=== PATIENT | male | born 1955 | race American Indian/Alaskan Native ===

== ENCOUNTER 2016-06-16 23:38 | Inpatient (IN) | payer OTHER ==
[2016-06-17 00:33] LABS: Bilirubin,Urine NEG (Negative); Blood,Urine SM (Negative); Ketones,Urine NEG (Negative); Leukocyte Esterase,Urine NEG (Negative); Nitrite,Urine NEG (Negative); Protein,Urine <15 mg/dL mg/dL (Negative); RBC,Urine < 1.0 /HPF (0.0-6.0); Urobilinogen,Urine < 2.0 mg/dL (<2.0); WBC,Urine < 1.0 /HPF (0.0-6.0)
[2016-06-17 00:38] LABS: INR 1.04 (0.87-1.13)
[2016-06-17 00:39] LABS: Partial Thromboplastin Time 34.4 Sec. (24.2-36.6)
[2016-06-17 00:56] LABS: Alanine Aminotransferase 12 units/L (7-56); Albumin 3.9 g/dL (3.9-5); Albumin/Globulin Ratio 1.6 %; Alkaline Phosphatase 65 units/L (35-129); Bilirubin,Total 0.5 mg/dL (0.1-1.2); Blood Urea Nitrogen 21 mg/dL (9-20); Calcium 8.8 mg/dL (8.4-10.2); Carbon Dioxide 21 mmol/L (22-30); Glucose 108 mg/dL (75-100); Total Protein 6.3 g/dL (6.3-8.2)
[2016-06-17 01:11] LABS: Anion Gap 17 mmol/L; Chloride 107.7 mmol/L (98-107); Potassium 4.1 mmol/L (3.6-5.0); Sodium 142 mmol/L (137-145)
[2016-06-17] MEDS ORDERED: NITROSTAT SL PRN (02:31)
--- NOTE | 2016-06-17 02:32 | Emergency Department Report ---
ED General Adult HPI - General Chief complaint: Arrhythmia/Palpitations Stated complaint: HEART PALPITATIONS Time Seen by Provider: 06/17/16 02:17 Source: patient, EMS (ems notes not available at time of chart dictation), RN notes reviewed, old records reviewed Mode of arrival: Stretcher Limitations: No Limitations - History of Present Illness Initial comments: This is a 60-year-old male. He is previously unknown to me. Has a past medical history of hypertension, high cholesterol, appendectomy, cardiac stents , coronary artery disease. Patient was recently admitted to [facility] for evaluation of chest pain and tightness. Patient had a myocardial infarction status post PCI stent 2. Follows with cardiology Dr. Sommers. Patient was admitted to [facility] April 28 2 April 30 of this year. Patient had an echocardiogram which demonstrated an ejection fraction of 25-30%, which did decrease from prior ejection fraction of 55-60% on echo year ago. Patient furthermore had a left heart catheterization the right radial artery approach, that demonstrated normal coronary arteries, patent stents to the left anterior descending, severe ischemic cardiomyopathy, with minimal left ventricular end-diastolic pressure. No tachycardia or tachycardia arrhythmias were noted. The patient presents to the ER with chest pressure, and palpitations. The chest pressure radiates to the shoulder. There is no vomiting or diaphoresis. There is no leg pain. There is no leg swelling. No recent trips greater than 4 hours. No recent hospital admissions since since April. Patient reports compliance with his medications. -: Gradual Location: chest Radiation: back Quality: aching Consistency: now resolved Improves with: none Worsens with: none Associated Symptoms: chest pain - Related Data Home Medications Medication Instructions Recorded Confirmed Last Taken Ticagrelor [Brilinta] 90 mg PO BID 02/25/15 02/25/15 06/17/16 Carvedilol [Coreg] 06/17/16 06/17/16 Carvedilol [Coreg] 3.125 mg PO BID 06/17/16 06/17/16 06/17/16 Previous Rx's Medication Instructions Recorded Last Taken Type Aspirin [Aspirin TAB] 81 mg PO QDAY #30 tablet 02/27/15 06/17/16 Rx Famotidine [Pepcid] 20 mg PO BID #60 tablet 02/27/15 06/16/16 Rx Ticagrelor [Brilinta] 90 mg PO BID tablet 02/27/15 06/17/16 Rx Allergies Allergy/AdvReac Type Severity Reaction Status Date / Time No Known Allergies Allergy Unverified 06/04/14 16:06 ED Review of Systems ROS: Stated complaint: HEART PALPITATIONS Other details as noted in HPI Constitutional: denies: malaise Eyes: denies: vision change Respiratory: see HPI Cardiovascular: chest pain, palpitations Gastrointestinal: denies: nausea, vomiting Musculoskeletal: back pain Skin: lesions (she reports a mechanical fall, has right lower extremity ecchymosis.). denies: rash Psychiatric: anxiety ED Past Medical Hx - Past Medical History Hx Hypertension: Yes Hx Heart Attack/AMI: Yes Hx Diabetes: No Hx Asthma: No Additional medical history: gasritis. gout. high cholesterol - Surgical History Hx Coronary Stent: Yes Additional Surgical History: colon resection - Social History Smoking Status: Unknown if ever smoked - Medications Home Medications: Home Medications Medication Instructions Recorded Confirmed Last Taken Type Ticagrelor [Brilinta] 90 mg PO BID 02/25/15 02/25/15 06/17/16 History Aspirin [Aspirin TAB] 81 mg PO QDAY #30 tablet 02/27/15 02/25/15 06/17/16 Rx Famotidine [Pepcid] 20 mg PO BID #60 tablet 02/27/15 06/16/16 Rx Ticagrelor [Brilinta] 90 mg PO BID tablet 02/27/15 06/17/16 Rx Carvedilol [Coreg] 06/17/16 06/17/16 History Carvedilol [Coreg] 3.125 mg PO BID 06/17/16 06/17/16 06/17/16 History ED Physical Exam - General Limitations: No Limitations General appearance: alert, in no apparent distress - Head Head exam: Present: atraumatic, normocephalic - Eye Eye exam: Present: normal appearance, EOMI. Absent: nystagmus - ENT ENT exam: Present: normal exam, normal orophraynx, mucous membranes moist, normal external ear exam - Neck Neck exam: Present: normal inspection, full ROM. Absent: tenderness, meningismus - Respiratory Respiratory exam: Present: normal lung sounds bilaterally. Absent: respiratory distress, wheezes, rales, rhonchi, stridor - Cardiovascular Cardiovascular Exam: Present: regular rate, normal rhythm, normal heart sounds. Absent: bradycardia, tachycardia, irregular rhythm, systolic murmur, diastolic murmur, rubs, gallop - GI/Abdominal GI/Abdominal exam: Present: soft, normal bowel sounds. Absent: distended, tenderness, guarding, rebound, rigid, pulsatile mass - Rectal Rectal exam: Present: deferred - Extremities Exam Extremities exam: Present: full ROM, normal capillary refill, other (his right lower extremity ecchymosis, patient attributes this to a mechanical fall a few days ago.). Absent: pedal edema, joint swelling, calf tenderness - Back Exam Back exam: Present: normal inspection, full ROM. Absent: tenderness, CVA tenderness (R), CVA tenderness (L), muscle spasm, paraspinal tenderness, vertebral tenderness - Neurological Exam Neurological exam: Present: alert, oriented X3, normal gait, other (Extraocular movements intact. Tongue midline. No facial droop. Facial sensation intact to light touch in the V1, V2, V3 distribution bilaterally. 5 and 5 strength in 4 extremities.. Sensation is intact to light touch in 4 extremities.). Absent : motor sensory deficit - Psychiatric Psychiatric exam: Present: normal affect, normal mood - Skin Skin exam: Present: warm, ecchymosis. Absent: rash ED Course Vital Signs 06/16/16 06/16/16 06/16/16 23:46 23:50 23:51 Temperature 97.7 F 97.7 F Pulse Rate 83 86 89 Respiratory 15 17 20 Rate Blood Pressure 130/88 130/88 Blood Pressure 130/88 [Right] O2 Sat by Pulse 97 99 97 Oximetry 06/17/16 06/17/16 06/17/16 00:00 00:10 00:20 Temperature Pulse Rate 91 H 84 77 Respiratory 13 17 15 Rate Blood Pressure 130/88 124/80 115/81 Blood Pressure [Right] O2 Sat by Pulse 97 97 97 Oximetry 06/17/16 06/17/16 06/17/16 00:30 00:40 00:44 Temperature Pulse Rate 74 77 77 Respiratory 14 18 19 Rate Blood Pressure 115/81 123/78 Blood Pressure [Right] O2 Sat by Pulse 98 98 98 Oximetry 06/17/16 06/17/16 06/17/16 00:50 01:00 01:10 Temperature Pulse Rate 82 72 74 Respiratory 14 15 16 Rate Blood Pressure 119/81 111/78 119/81 Blood Pressure [Right] O2 Sat by Pulse 97 98 97 Oximetry 06/17/16 06/17/16 06/17/16 01:20 01:30 01:40 Temperature Pulse Rate 71 71 74 Respiratory 17 14 14 Rate Blood Pressure 120/78 124/73 124/73 Blood Pressure [Right] O2 Sat by Pulse 97 98 97 Oximetry 06/17/16 06/17/16 06/17/16 01:50 02:00 02:10 Temperature Pulse Rate 73 69 68 Respiratory 13 16 16 Rate Blood Pressure 127/81 124/81 124/81 Blood Pressure [Right] O2 Sat by Pulse 98 98 97 Oximetry 06/17/16 06/17/16 06/17/16 02:20 02:30 02:40 Temperature Pulse Rate 79 66 69 Respiratory 19 15 13 Rate Blood Pressure 123/80 116/60 116/60 Blood Pressure [Right] O2 Sat by Pulse 98 98 98 Oximetry 06/17/16 06/17/16 06/17/16 02:50 03:00 03:14 Temperature Pulse Rate 68 70 67 Respiratory 13 15 18 Rate Blood Pressure 112/65 111/74 Blood Pressure [Right] O2 Sat by Pulse 99 98 98 Oximetry 06/17/16 06/17/16 06/17/16 03:20 03:30 03:40 Temperature Pulse Rate 71 71 76 Respiratory 15 13 13 Rate Blood Pressure Blood Pressure [Right] O2 Sat by Pulse 97 98 98 Oximetry 06/17/16 06/17/16 06/17/16 03:50 04:00 04:10 Temperature Pulse Rate 67 71 68 Respiratory 13 12 11 L Rate Blood Pressure 113/70 Blood Pressure [Right] O2 Sat by Pulse 99 99 98 Oximetry 06/17/16 06/17/16 04:20 04:50 Temperature Pulse Rate 68 68 Respiratory 16 16 Rate Blood Pressure 117/72 126/79 Blood Pressure [Right] O2 Sat by Pulse 98 98 Oximetry - Reevaluation(s) Reevaluation #1: 06/17/16 05:16 Differential diagnosis: Unstable angina, electrolyte imbalance, pneumonia, pulmonary embolus, acute coronary syndrome, anxiety Assessment and plan: 60-year-old male with ischemic cardiomyopathy, stents, chest pain that radiates to the back. EKG morphologically abnormal. Case is discussed with covering greenhouse grower, Dr. Mahajan. He recommends admission. He indicates that the formal cardiac catheterization report needs to be obtained for further review. We were able to obtain some of the patient's medical records, but thus far the cardiac catheterization report has not returned. CT angiogram has been performed given elevated d-dimer, awaiting results. Hospital physician, Dr. Charlton accepts patient to her service. ED Medical Decision Making - Lab Data Result diagrams: 06/17/16 02:50 06/17/16 00:15 Vital Signs 06/16/16 06/16/16 06/16/16 23:46 23:50 23:51 Temperature 97.7 F 97.7 F Pulse Rate 83 86 89 Respiratory 15 17 20 Rate Blood Pressure 130/88 130/88 Blood Pressure 130/88 [Right] O2 Sat by Pulse 97 99 97 Oximetry 06/17/16 06/17/16 06/17/16 00:00 00:10 00:20 Temperature Pulse Rate 91 H 84 77 Respiratory 13 17 15 Rate Blood Pressure 130/88 124/80 115/81 Blood Pressure [Right] O2 Sat by Pulse 97 97 97 Oximetry 06/17/16 06/17/16 06/17/16 00:30 00:40 00:44 Temperature Pulse Rate 74 77 77 Respiratory 14 18 19 Rate Blood Pressure 115/81 123/78 Blood Pressure [Right] O2 Sat by Pulse 98 98 98 Oximetry 06/17/16 06/17/16 06/17/16 00:50 01:00 01:10 Temperature Pulse Rate 82 72 74 Respiratory 14 15 16 Rate Blood Pressure 119/81 111/78 119/81 Blood Pressure [Right] O2 Sat by Pulse 97 98 97 Oximetry 06/17/16 06/17/16 06/17/16 01:20 01:30 01:40 Temperature Pulse Rate 71 71 74 Respiratory 17 14 14 Rate Blood Pressure 120/78 124/73 124/73 Blood Pressure [Right] O2 Sat by Pulse 97 98 97 Oximetry 06/17/16 06/17/16 06/17/16 01:50 02:00 02:10 Temperature Pulse Rate 73 69 68 Respiratory 13 16 16 Rate Blood Pressure 127/81 124/81 124/81 Blood Pressure [Right] O2 Sat by Pulse 98 98 97 Oximetry 06/17/16 06/17/16 06/17/16 02:20 02:30 02:40 Temperature Pulse Rate 79 66 69 Respiratory 19 15 13 Rate Blood Pressure 123/80 116/60 116/60 Blood Pressure [Right] O2 Sat by Pulse 98 98 98 Oximetry 06/17/16 06/17/16 06/17/16 02:50 03:00 03:14 Temperature Pulse Rate 68 70 67 Respiratory 13 15 18 Rate Blood Pressure 112/65 111/74 Blood Pressure [Right] O2 Sat by Pulse 99 98 98 Oximetry 06/17/16 06/17/16 06/17/16 03:20 03:30 03:40 Temperature Pulse Rate 71 71 76 Respiratory 15 13 13 Rate Blood Pressure Blood Pressure [Right] O2 Sat by Pulse 97 98 98 Oximetry 06/17/16 06/17/16 06/17/16 03:50 04:00 04:10 Temperature Pulse Rate 67 71 68 Respiratory 13 12 11 L Rate Blood Pressure 113/70 Blood Pressure [Right] O2 Sat by Pulse 99 99 98 Oximetry 06/17/16 06/17/16 04:20 04:50 Temperature Pulse Rate 68 68 Respiratory 16 16 Rate Blood Pressure 117/72 126/79 Blood Pressure [Right] O2 Sat by Pulse 98 98 Oximetry - EKG Data 06/17/16 05:18 Normal sinus, 87 beats per minute, QTC 452 ms, T-wave inversions V5 and V6, nonspecific changes when compared to old EKG, there is pseudonormalization of biphasic T waves in V2 and V3, abnormal EKG, not morphologically consistent with STEMI. - Radiology Data Radiology results: image reviewed interpreted by me: X-ray of the chest is negative Critical care attestation.: If time is entered above; I have spent that time in minutes in the direct care of this critically ill patient, excluding procedure time. ED Disposition Clinical Impression: Acute electrocardiogram changes, Chest pain Disposition: OP ADMITTED IP TO THIS HOSP Is pt being admited?: Yes Does the pt Need Aspirin: Yes Condition: Good Instructions: Chest Pain (ED) Referrals: PRIMARY CARE, [Primary Care Provider] - 3-5 Days
[2016-06-17 03:01] LABS: Hematocrit 41.5 % (35.5-45.6); Hemoglobin 13.9 gm/dl (11.8-15.2); Mean Corpuscular HGB Conc 33 % (32-34); Mean Corpuscular Hemoglobin 28 pg (28-32); Mean Corpuscular Volume 85 fl (84-94); Platelet Count 215 K/mm3 (140-440); Red Cell Distribution Width 13.8 % (13.2-15.2); White Blood Count 8.8 K/mm3 (4.5-11.0)
[2016-06-17] MEDS ORDERED: NACL 0.9% 500 ML 500 ML IV ONE (03:25)
[2016-06-17] MEDS ORDERED: NACL 0.9% 1000 ML 1,000 ML ONE (04:06)
[2016-06-17] MEDS ORDERED: BABY ASPIRIN PO ONE (05:18)
[2016-06-17] MEDS ORDERED: ZOFRAN IV PRN (05:49)
[2016-06-17] MEDS ORDERED: MORPHINE IV PRN (05:49)
[2016-06-17] MEDS ORDERED: TYLENOL PO PRN (05:49)
[2016-06-17] MEDS ORDERED: DULCOLAX PR PRN (05:49)
[2016-06-17] MEDS ORDERED: MILK OF MAGNESIA PO PRN (05:49)
--- NOTE | 2016-06-17 05:55 | History and Physical Report ---
History of Present Illness Date of examination: 06/17/16 History of present illness: 80-year-old man with a history of coronary artery disease, hypertension hyperlipidemia comes emergency room with complaints of palpitations which lasted for 10 minutes and was associated with chest pain. The chest pain he describes a pressure-like sensation lasting for one and a half hours constantly , intensity 7/10, radiating to bilateral shoulders, he cannot identify exacerbating or relieving factors. He admits to shortness of breath, no nausea vomiting or diaphoresis. He had a stress test in 2016 Patient denies cough, abdominal pain, hematochezia, dysuria, frequency, focal weakness, dysarthria, fever chills, polydipsia polyuria, hot or cold intolerance , easy bruisability, or rash or bleeding from mucosal membrane, rhinorrhea, epistaxis, earache, tinnitus, blurry vision, eye discharge, anxiety, depression. Other review of systems negative PAST SURGICAL HISTORY: Hysterectomy SOCIAL HISTORY:Denies alcohol, tobacco, drugs FAMILY HISTORY: Hypertension Medications and Allergies Allergies Allergy/AdvReac Type Severity Reaction Status Date / Time No Known Allergies Allergy Unverified 06/04/14 16:06 Home Medications Medication Instructions Recorded Confirmed Last Taken Type Ticagrelor [Brilinta] 90 mg PO BID 02/25/15 02/25/15 06/17/16 History Aspirin [Aspirin TAB] 81 mg PO QDAY #30 tablet 02/27/15 02/25/15 06/17/16 Rx Famotidine [Pepcid] 20 mg PO BID #60 tablet 02/27/15 06/16/16 Rx Ticagrelor [Brilinta] 90 mg PO BID tablet 02/27/15 06/17/16 Rx Carvedilol [Coreg] 06/17/16 06/17/16 History Carvedilol [Coreg] 3.125 mg PO BID 06/17/16 06/17/16 06/17/16 History Active Meds: Active Medications Nitroglycerin (Nitrostat) 0.4 mg SL .Q5MIN PRN PRN Reason: Chest Pain Exam - Physical Exam Narrative exam: Gen. appearance: Patient lying in bed, no apparent distress HEENT: Normocephalic, atraumatic, pupils equally round and reactive to light, extraocular movement intact, and no sclericterus,. No JVD or thyromegaly or nodule,neck supple, no carotid bruit ,mucous membranes moist, no exudate or erythema Heart: S1, S2, regular rate and rhythm Lungs: Clear to auscultation bilaterally, breathing comfortable Abdomen: Positive bowel sounds, nontender, nondistended, no organomegaly Extremity: No edema, cyanosis, clubbing Skin: No rash, nodules, warm, dry Neuro: Oriented 3, cranial nerves II-12 intact, speech is fluent, motor and sensory intact - Constitutional Vitals: Temp Pulse Resp BP Pulse Ox 97.7 F 68 16 126/79 98 06/16/16 23:51 06/17/16 04:50 06/17/16 04:50 06/17/16 04:50 06/17/16 04:50 Results - Labs CBC & Chem 7: 06/17/16 02:50 06/17/16 00:15 Labs: Abnormal lab results 06/17/16 06/17/16 06/17/16 Range/Units 00:15 00:23 02:50 D-Dimer 275.65 H (0-234) ng/mlDDU Chloride 107.7 H (98-107) mmol/L Carbon Dioxide 21 L (22-30) mmol/L BUN 21 H (9-20) mg/dL Glucose 108 H (75-100) mg/dL TSH 5.020 H (0.270-4.200) mlU/mL - Imaging and Cardiology EKG: image reviewed Chest x-ray: image reviewed CT scan - chest: pending Assessment and Plan Unstable angina Coronary artery disease Hypertension Hyperlipidemia Admits medicine Check cardiac enzymes, consult cardiology Follow CT chest, start aspirin, IV morphine, DVT prophylaxis Continue appropriate outpatient medications
--- NOTE | 2016-06-17 06:04 | Cat Scan Report ---
FINAL REPORT PROCEDURE: CT ANGIO CHEST TECHNIQUE: Computerized axial tomographic angiography of the chest and pulmonary arteries was performed after the IV injection of iodinated nonionic contrast. The image data was postprocessed using maximum intensity projection (MIP) and 2-dimensional multiplanar reformatted (MPR) techniques. The examination is specifically tailored to the evaluation of the pulmonary arteries per clinical request. HISTORY: Short of breath 786.09, chest pain 786.50, cp ? pe COMPARISON: No prior studies are available for comparison. FINDINGS: Heart and pericardium: Normal. Thoracic aorta: There is ectasia of the ascending thoracic aorta measuring up to 4.8 centimeters in diameter. There is no dissection. Aortic arch and descending thoracic aorta are normal in caliber.. Pulmonary vasculature: Normal. No pulmonary emboli. Lymph nodes: No enlarged thoracic lymph nodes. Lungs: There are no infiltrates.. Pleural space: No effusion, thickening, or pneumothorax. Musculoskeletal structures: No significant abnormality. Upper abdominal structures: No significant abnormality. IMPRESSION: There is no pulmonary embolism.. There is ectasia of the ascending thoracic aorta measuring up to 4.8 centimeters in diameter. There is no dissection. Aortic arch and descending thoracic aorta are normal in caliber.. There are no infiltrates.. There are no effusions or pneumothoraces.
--- NOTE | 2016-06-17 07:30 | Admit Criteria Form ---
Admission Criteria Documentation: CARDIOLOGY GRG Clinical Indications for Admission to Inpatient Care ( Place 'X' for any and all applicable criteria): Hospital admission is needed for appropriate care of the patient because of ANY ONE of the following (1): [ ] I. Hemodynamic instability as indicated by ALL of the following (1)(2)(3) (4)(5) [ ]a) Vital signs or other findings not as expected for chronic patient condition or baseline [ ]b) Instability indicated by ANY ONE of the following: [ ]i) Hypotension [ ]ii) Symptomatic Tachycardia unresponsive to treatment ( e.g., analgesia, fluids, sedation as indicated) [ ]iii) Inadequate perfusion indicated by ANY ONE of the following: [ ] 1) Lactic acidosis (> 2 mmol/L) [ ] 2) New abnormal capillary refill (> 3 seconds) [ ] 3) Reduced urine output [ ] 4) New altered mental status [ ]iv) Orthostatic vital sign changes unresponsive to treatment (e.g., fluids) [ ]v) IV inotropic or vasopressor medication required to maintain adequate blood pressure or perfusion [ ] II. Severe heart failure as indicated by ANY ONE of the following(17)(18) [ ]a) Respiratory distress [ ]b) Hypotension [ ]c) Anasarca (refractory to outpatient therapy) [ ]d) Cardiac arrhythmias of immediate concern [ ]e) Myocardial ischemia [ ] III. Cardiac arrhythmias or findings of immediate concern indicated by ANY ONE of the following (19)(20): [ ] a) Heart rhythms that are inherently dangerous or unstable indicated by ANY ONE of the following (21)(22)(23): [ ] i) Resuscitated ventricular fibrillation or cardiac arrest [ ] ii) Ventricular escape rhythm [ ] iii) Sustained ventricular tachycardia (30 seconds or more of ventricular rhythm at greater than 100 beats per minute) [ ] iv) Nonsustained ventricular tachycardia and ANY ONE of the following: [ ] 1) Suspected cardiac ischemia as cause or consequence of ventricular tachycardia [ ] 2) In setting of acute myocarditis [ ] b) Unstable cardiac conduction defects indicated by ANY ONE of the following(23)(24)(25) [ ] i) Type II second-degree atrioventricular block [ ]ii) Third-degree atrioventricular block [ ]iii) New-onset left bundle branch block with suspected myocardial ischemia [ ]c) Any heart rhythm and ANY ONE of the following (21)(22)(26)(27) (28) [ ] i) Continuous long-term ECG monitoring needed (e.g., initiation of drug requiring monitoring for more than 24 hours) [ ] ii) Patient has automatic implanted cardioverter defibrillator that is repeatedly firing, malfunctioning, or in need of immediate adjustment of settings beyond the scope of ambulatory or observation care [ ]d) Heart rhythms of concern due to ANY ONE of the following: [ ] i) Hypotension [ ] ii) Respiratory distress [ ] iii) Association with other significant symptoms (e.g., bradycardia with syncope or ongoing dizziness, supraventricular tachycardia with chest pain (14)(15)(17) [ ] IV. Monitoring for cardiac contusion beyond the scope of observation care needed [A](30)(31)(32) [ ] V. Surgical or device complication (e.g., valve replacement complication , pacemaker dysfunction) (35)(41)(44)(45)(46) [ ] . Inpatient palliative care needed. [B](49) Also use Inpatient Palliative Care Criteria [ ] VII. Nonbacterial thrombotic (marantic) endocarditis (36)(43)(47)(48) [X ] VIII. Cardiology condition, symptom, or finding for which emergency and observation care has failed or are not considered appropriate. [ ] IX. Acute valvular disease requiring inpatient as indicated by ANY ONE of the following (41) [ ]a) Acute valvular regurgitation (42) [ ]b) Noninfectious valvulitis (43) [ ]c) Obstructive valve thrombosis [ ]d) Paravalvular leak [ ]e) Other significant valvular disorder remaining after emergency or observation level of care (as appropriate) [ ]X. Pericardial disease requiring inpatient treatment as indicated by ANY ONE of the following (33)(34)(35)(36)(37) [ ]a) Suspected tamponade (38)(39)(40) [ ]b) Hemopericardium [ ]c) Other significant pericardial disorder remaining after emergency or observation level of care (as appropriate) [ ] XI. Cardiac ischemia beyond scope of emergency and observation care. [ ] XII. Hypertension requiring inpatient treatment as indicated by ANY ONE of the following (6)(7)(8) [ ]a) SBP greater than 220 mm Hg or DBP greater than 120 mmHg despite treatment [ ]b) SBP greater than 140 mm Hg or DBP greater than 100 mm Hg with evidence of acute end organ damage as indicated by ANY ONE of the following [ ] i) Altered mental status [ ] ii) Acute renal failure as indicated by new onset of ANY ONE of the following (9)(10)(11)(12)(13) [ ]1) 3-fold rise in serum creatinine from baseline [ ]2) Serum creatinine greater than 4 mg/dL ( 354 micromoles/L) with acute rise greater than 0.5 mg/dL (44.2 micromoles/L) [ ]3) Reduction of more than 75% in estimated glomerular filtration rate from baseline [ ]4) Estimated glomerular filtration rate less than 35 mL/min/1.73m2 (0.59 mL/sec/1.73m2) in child up to 18 years of age [ ]5) Cessation of urine output indicated by ALL of the following [ ]A. Adequate volume status [ ]B. Inadequate urine output as indicated by ANY ONE of the following [ ]a. Urine output less than 0.3 mL/kg/hr for 24 hours [ ]b. Anuria (urine output less than 0.1 mL/kg/hr) for 12 hours [ ] iii) Aortic dissection [ ] iv) Myocardial Ischemia [ ] v) Left ventricular heart failure [ ]vi) Retinal Hemorrhage [ ]vii) Other significant finding [ ]c) Hypertension in child requiring inpatient treatment as indicated by ALL of the following(14)(15)(16) [ ] i) Outpatient treatment not effective, not available, or not appropriate [ ]ii) SBP or DBP greater than 95th percentile for age [ ]iii) Evidence of acute end organ damage as indicated by ANY ONE of the following [ ]1) Altered mental status [ ]2) Acute renal failure as indicated by new onset of ANY ONE of the following(9)(10)(11)(12)(13) [ ]A. 3-fold rise in serum creatinine from baseline [ ]B. Serum creatinine greater than 4 mg/dL (354 micromoles/L) with acute rise greater than 0.5 mg/dL (44.2 micromoles/L) [ ]C. Reduction of more than 75% in estimated glomerular filtration rate from baseline [ ]D. Estimated glomerular filtration rate less than 35 mL/min/1.73m2 (0.59 mL/sec/1.73m2) in child up to 18 years of age [ ]E. Cessation of urine output indicated by ALL of the following [ ]a. Adequate volume status [ ]b. Inadequate urine output as indicated by ANY ONE of the following [ ]i) Urine output less than 0.3 mL/kg/hr for 24 hours [ ]ii) Anuria ( urine output less than 0.1 mL/kg/hr) for 12 hours [ ]3) Severe headache [ ]4) Visual disturbance [ ]5) Retinal hemorrhage [ ]6) Other significant finding [ ]XIII. Complications of transplanted heart indicated by ANY ONE of the following(61): [ ]a) Acute graft rejection requiring inpatient management (eg, intravenous immunosuppression)(62)(63) [ ]b) Acute graft heart failure indicated by ANY ONE of the following(64): [ ]i) Hemodynamic instability [ ]ii) Cardiac arrhythmias of immediate concern [ ]iii) Pulmonary edema that is very severe (eg, mechanical ventilation needed, imminent or likely, need for 100% oxygen to keep oxygen saturation above 90%) [ ]iv) Pulmonary edema that is persistent as indicated by ALL of the following: [ ]1) New need for oxygen therapy to keep oxygen saturation above 90% (or increased FiO2 need from baseline) [ ]2) Has not improved sufficiently with emergency department or observation care IV diuretics or other heart failure treatments[E] [ ]v) Altered mental status that is severe or persistent [ ]vi) Increased creatinine (new on laboratory test) with reduction of more than 50% in estimated glomerular filtration rate from baseline [ ]vii) Progressively (ongoing) rising creatinine (known from past laboratory test) with reduction of more than 25% in estimated glomerular filtration rate from baseline [ ]viii) Acute renal failure [ ]ix) Acute peripheral ischemia (eg, examination shows pulseless, cool, mottled, or cyanotic extremity) [ ]x) Pulmonary artery catheter monitoring needed [ ]xi) Other sign or symptom of heart failure requiring inpatient treatment (ie, too severe or not responsive to outpatient and observation care treatment) [ ]c) Infection requiring inpatient management (eg, Hemodynamic instability, need for intravenous antimicrobial treatment)(66)(67)(68)(69)(70) [ ]d) Cardiac allograft vasculopathy requiring inpatient management ( eg evidence of cardiac ischemia)(71) [ ]e) Other complication of transplanted heart (eg, stroke, severe pulmonary hypertension, severe valvular dysfunction) requiring inpatient management(72) The original [facility] [employer] content created by [facility] has been revised. The portions of the content which have been revised are identified through the use of italic text or in bold, and [facility] has neither reviewed nor approved the modified material. All other unmodified content is copyright [facility]. Please see references footnoted in the original [facility] edition 2016 Admission Criteria Met: Yes
[2016-06-17 09:01] LABS: Creatine Kinase MB 1.4 ng/mL (0.0-4.0)
[2016-06-17 09:03] LABS: Creatine Kinase 137 units/L (55-170)
--- NOTE | 2016-06-17 09:19 | XRay Report ---
AP CHEST: AP view of the chest demonstrates a normal mediastinal and cardiac contour with clear lungs and normal bony and soft tissue structures. No significant change compared to prior study of February 25, 2015. IMPRESSION: Normal AP chest.
[2016-06-17] MEDS ORDERED: LOVENOX SUB-Q SCH (10:00)
[2016-06-17] MEDS ORDERED: ASPIRIN ONE (10:22)
--- NOTE | 2016-06-17 12:15 | Consultation ---
History of Present Illness Consult date: 06/17/16 Consult reason: other (Palpitations) History of present illness: Mr Delaney is a 60yr old male with a cardiac history of prior [place], Coronary Artery disease, Ischemic cardiomyopathy and paroxysmal Atrial fibrillation treated with aspirin therapy alone. He had a cardiac cath at [facility] 2 months ago that reports a patent proximal LAD stent. No residual disease in other coronary segments. Ejection fraction 25-30%. He reports compliance with brilinta and aspirin therapy. He presents to the ED with complaints of palpitations and shortness of breath. He denies chest pain. There was no pre-syncope or syncope. His ECG shows a sinus rhythm with nonspecific twave abnormalities. No acute cardiopulmonary process on chest x-ray. Chest CTA reports a dilated ascending thoracic aorta measuring 4.8cm. No dissection. No evidence of pulmonary embolism. It is unclear if this is a new finding. Initial labs shows a TSH of 5.0, magnesium of 2.0 and potassium of 4.1. Cardiac consultation requested. Medications and Allergies Allergies Allergy/AdvReac Type Severity Reaction Status Date / Time No Known Allergies Allergy Unverified 06/04/14 16:06 Home Medications Medication Instructions Recorded Confirmed Last Taken Type Ticagrelor [Brilinta] 90 mg PO BID 02/25/15 06/17/16 06/17/16 History Aspirin [Aspirin TAB] 81 mg PO QDAY #30 tablet 02/27/15 06/17/16 02/25/15 Rx Famotidine [Pepcid] 20 mg PO BID #60 tablet 02/27/15 06/17/16 Unknown Rx Carvedilol [Coreg] 3.125 mg PO BID 06/17/16 06/17/16 Unknown History Sacubitril/Valsartan [Entresto 24 1 tab PO DAILY 06/17/16 06/17/16 Unknown History mg-26 mg Tablet] Active Meds: Active Medications Acetaminophen (Tylenol) 650 mg PO Q4H PRN PRN Reason: Pain MILD(1-3)/Fever >100.5/ARCHULETA Aspirin (Aspirin) 325 [facility] Bisacodyl (Dulcolax) 10 mg NM QDAY PRN PRN Reason: Constipation unrelieved by MOM Enoxaparin Sodium (Lovenox) 40 mg SUB-Q QDAY [facility] Last Admin: 06/17/16 10:40 Dose: 40 mg Magnesium Hydroxide (Milk Of Magnesia) 30 ml PO Q4H PRN PRN Reason: Constipation Morphine Sulfate (Morphine) 2 mg IV Q4H PRN PRN Reason: Pain, Moderate (4-6) Nitroglycerin (Nitrostat) 0.4 mg SL .Q5MIN PRN PRN Reason: Chest Pain Ondansetron HCl (Zofran) 4 mg IV Q8H PRN PRN Reason: N/V unrelieved by Reglan Physical Examination Vital Signs Pulse Resp Pulse Ox 83 15 97 06/16/16 23:46 06/16/16 23:46 06/16/16 23:46 General appearance: no acute distress HEENT: Positive: PERRL Neck: Positive: trachea midline Cardiac: Positive: Reg Rate and Rhythm Neuro: Positive: Grossly Intact Extremities: Absent: edema Results 06/17/16 02:50 06/17/16 00:15 Cardiac Enzymes 06/17/16 Range/Units 08:19 CK-MB (CK-2) 1.4 (0.0-4.0) ng/mL Assessment and Plan Paroxysmal atrial fibrillation currently in sinus rhythm on aspirin therapy Hx of CAD [facility] 04/2016 reports a patent proximal LAD stent. No residual disease in other coronary segments. EF 25-30%. on brilinta and aspirin Ischemic Cardiomyopathy Hypertension Dilated ascending thoracic aorta measuring 4.8cm on CTA
--- NOTE | 2016-06-17 13:44 | Event Note ---
Date: 06/17/16 Patient with rapid afib. He was seen and examined. Continue current management. For lifevest prior to discharge, as per cardiology.
[2016-06-17] MEDS ORDERED: SACUBITRIL PO SCH (13:45)
[2016-06-17] MEDS ORDERED: VALSARTAN PO SCH (13:45)
[2016-06-17] MEDS ORDERED: BRILINTA PO SCH (14:00)
[2016-06-17] MEDS: COREG PO SCH ×2 (14:18→22:02)
--- NOTE | 2016-06-17 14:57 | Event Note ---
Date: 06/17/16 Noted atrial fibrillation with RVR on telemetry. BP borderline low 97/79. Patient asymptomatic. Plan: Will initiate eliquis 5mg bid for stroke prophylaxis. Oral amiodarone 200mg bid. Stop entresto. Will replace with valsartan 40mg daily. Will change Brilinta to Plavix therapy to lower risk of bleeding. Discontinue aspirin. Start high dose statin therapy for underlying CAD.
[2016-06-17] MEDS: CORDARONE PO SCH ×2 (15:20→22:02)
[2016-06-17 17:57] LABS: Creatine Kinase MB 1.5 ng/mL (0.0-4.0)
[2016-06-17 17:59] LABS: Creatine Kinase 121 units/L (55-170)
[2016-06-17] MEDS: ELIQUIS PO SCH (22:02)
[2016-06-17] MEDS: PEPCID PO SCH (22:02)
[2016-06-18] MEDS: PLAVIX PO SCH (09:21)
[2016-06-18] MEDS: DIOVAN PO SCH (09:21)
[2016-06-18] MEDS: COREG PO SCH ×2 (09:21→21:35)
[2016-06-18] MEDS: CORDARONE PO SCH ×2 (09:21→21:36)
[2016-06-18] MEDS: ELIQUIS PO SCH ×2 (09:22→21:36)
[2016-06-18] MEDS: PEPCID PO SCH ×2 (09:22→21:36)
[2016-06-18] MEDS ORDERED: ASPIRIN PO SCH ×2 (10:00)
[2016-06-18] MEDS ORDERED: HALFPRIN EC PO SCH (10:00)
--- NOTE | 2016-06-18 12:57 | Progress Note ---
Assessment and Plan - Patient Problems (1) Syncope Current Visit: Yes Status: Acute Qualifiers: Syncope type: S Encounter type: E Plan to address problem: Awaiting LifeVest prior to discharge, outpatient follow-up with his primary income tax consultant, following which he will be transitioned to a probable ICD therapy in the outpatients. (2) Ischemic cardiomyopathy Current Visit: Yes Status: Acute Plan to address problem: Medical therapy for coronary artery disease and ischemic cardiomyopathy. Left anterior descending artery stent was patent on a cardiac catheterization one month ago. (3) Ascending aortic aneurysm Current Visit: Yes Status: Acute Plan to address problem: The 4.8 cm ascending aorta appears to be a new finding, I have had extensive discussion with patient and regarding this, and the need for serial CT scan follow-up in the outpatient's. Subjective Date of service: 06/18/16 Interval history: 60-year-old man with coronary artery disease and ischemic cardiomyopathy, who presented with syncope. He is awaiting LifeVest prior to discharge. Cardiac catheterization just 1 month ago demonstrated a patent LAD stent. His left ventricular ejection fraction is 25-30%. His outpatient income tax consultant had already started plans for ICD therapy in the next several months. An incidental finding of enlarged ascending thoracic aorta 4.[address] of the chest during this presentation. The patient is unaware of any prior history of thoracic aortic aneurysm. Objective Vital Signs Temp Pulse Pulse Resp BP BP BP 06/18/16 12:29 06/18/16 09:21 68 142/90 06/18/16 08:03 97.8 F 68 16 140/90 06/18/16 07:07 06/18/16 04:00 97.7 F 62 18 145/85 06/18/16 00:00 98.8 F 66 18 128/81 06/17/16 23:08 06/17/16 20:00 98.1 F 69 18 117/70 06/17/16 19:05 69 06/17/16 18:42 97.8 F 75 18 136/84 06/17/16 14:20 71 16 111/88 06/17/16 14:00 137 H 15 97/79 06/17/16 13:00 139 H 16 107/68 Pulse Ox 06/18/16 12:29 99 06/18/16 09:21 06/18/16 08:03 99 06/18/16 07:07 97 06/18/16 04:00 97 06/18/16 00:00 98 06/17/16 23:08 98 06/17/16 20:00 97 06/17/16 19:05 06/17/16 18:42 95 06/17/16 14:20 96 06/17/16 14:00 97 06/17/16 13:00 97 - Physical Examination General: Appears Well, No Apparent Distress HEENT: Positive: PERRL Neck: Positive: trachea midline Cardiac: Positive: Reg Rate and Rhythm Lungs: Positive: clear to auscultation Neuro: Positive: Grossly Intact Abdomen: Positive: Soft Skin: Positive: Clear Extremities: Absent: edema - Labs and Meds Cardiac Enzymes 06/17/16 Range/Units 16:34 CK-MB (CK-2) 1.5 (0.0-4.0) ng/mL - Imaging and Cardiology EKG: image reviewed
--- NOTE | 2016-06-18 16:25 | Discharge Summary ---
Providers - Providers Date of Admission: 06/17/16 05:49 Date of discharge: 06/18/16 Attending physician: TANIKA PATRICK Primary care physician: BROOKE PUCKETT MD Hospitalization Condition: Good Disposition: DISCHARGED TO HOME OR SELFCARE - Discharge Diagnoses (1) Atrial fibrillation with RVR Status: Chronic (2) Ascending aortic aneurysm Status: Acute (3) Ischemic cardiomyopathy Status: Acute (4) HTN (hypertension) Status: Acute Qualifiers: Hypertension type: H Core Measure Documentation - Palliative Care Palliative Care/ Comfort Measures: Not Applicable Exam - Constitutional Vitals: Temp Pulse Resp BP Pulse Ox 97.8 F 68 16 142/90 99 06/18/16 08:03 06/18/16 09:21 06/18/16 08:03 06/18/16 09:21 06/18/16 12:29 Plan Diet: low fat, low cholesterol, low salt Additional Instructions: 1.Follow up with PCP in 1 week. 2.Follow up with Cardiology in 3-5 days. 3.No strenous activity until cleared by Cardiology. 4.Ascending aortic artery aneurysm to be followed by PCP in 1 week. Follow up with: PRIMARY CARE, [Primary Care Provider] - 3-5 Days Prescriptions: Amiodarone [Cordarone 200 MG TAB] 200 mg PO BID #60 tablet Apixaban [Eliquis] 5 mg PO Q12HR #60 tablet AtorvaSTATin [Lipitor] 40 mg PO QHS #30 tablet Clopidogrel [Plavix] 75 mg PO QDAY #30 tablet Nitroglycerin [Nitrostat] 0.4 mg SL .Q5MIN PRN #30 tablet PRN Reason: Chest Pain Valsartan [Diovan] 40 mg PO QDAY #30 tablet
--- NOTE | 2016-06-18 19:00 | Progress Note ---
Assessment and Plan - Patient Problems (1) Atrial fibrillation with RVR Current Visit: No Status: Chronic (2) Ascending aortic aneurysm Current Visit: Yes Status: Acute (3) Ischemic cardiomyopathy Current Visit: Yes Status: Acute (4) HTN (hypertension) Current Visit: No Status: Acute Qualifiers: Hypertension type: H Hospitalist Physical - Constitutional Vitals: Temp Pulse Resp BP Pulse Ox 97.2 F L 69 16 121/74 99 06/18/16 18:33 06/18/16 18:33 06/18/16 18:33 06/18/16 18:33 06/18/16 18:33 General appearance: Present: no acute distress Results - Labs CBC & Chem 7: 06/17/16 02:50 06/17/16 00:15 Labs: Laboratory Last Values WBC 8.8 K/mm3 (4.5-11.0) 06/17/16 02:50 RBC 4.90 M/mm3 (3.65-5.03) 06/17/16 02:50 Hgb 13.9 gm/dl (11.8-15.2) 06/17/16 02:50 Hct 41.5 % (35.5-45.6) 06/17/16 02:50 MCV 85 fl (84-94) 06/17/16 02:50 MCH 28 pg (28-32) 06/17/16 02:50 MCHC 33 % (32-34) 06/17/16 02:50 RDW 13.8 % (13.2-15.2) 06/17/16 02:50 Plt Count 215 K/mm3 (140-440) 06/17/16 02:50 PT 13.5 Sec. (12.2-14.9) 06/17/16 00:15 INR 1.04 (0.87-1.13) 06/17/16 00:15 APTT 34.4 Sec. (24.2-36.6) 06/17/16 00:15 D-Dimer 275.65 ng/mlDDU (0-234) H 06/17/16 02:50 Sodium 142 mmol/L (137-145) 06/17/16 00:15 Potassium 4.1 mmol/L (3.6-5.0) 06/17/16 00:15 Chloride 107.7 mmol/L (98-107) H 06/17/16 00:15 Carbon Dioxide 21 mmol/L (22-30) L 06/17/16 00:15 Anion Gap 17 mmol/L 06/17/16 00:15 BUN 21 mg/dL (9-20) H 06/17/16 00:15 Creatinine 1.4 mg/dL (0.8-1.5) 06/17/16 00:15 Estimated GFR > 60 ml/min 06/17/16 00:15 BUN/Creatinine Ratio 15.00 % 06/17/16 00:15 Glucose 108 mg/dL (75-100) H 06/17/16 00:15 Calcium 8.8 mg/dL (8.4-10.2) 06/17/16 00:15 Magnesium 2.0 mg/dL (1.7-2.3) 06/17/16 00:23 Total Bilirubin 0.5 mg/dL (0.1-1.2) 06/17/16 00:15 AST 15 units/L (5-40) 06/17/16 00:15 ALT 12 units/L (7-56) 06/17/16 00:15 Alkaline Phosphatase 65 units/L (35-129) 06/17/16 00:15 Total Creatine Kinase 121 units/L (55-170) 06/17/16 16:34 CK-MB (CK-2) 1.5 ng/mL (0.0-4.0) 06/17/16 16:34 CK-MB (CK-2) Rel Index 1.2 (0-4) 06/17/16 16:34 Troponin T < 0.010 ng/mL (0.00-0.029) 06/17/16 16:34 Total Protein 6.3 g/dL (6.3-8.2) 06/17/16 00:15 Albumin 3.9 g/dL (3.9-5) 06/17/16 00:15 Albumin/Globulin Ratio 1.6 % 06/17/16 00:15 TSH 5.020 mlU/mL (0.270-4.200) H 06/17/16 00:23 Free T4 1.05 ng/dL (0.76-1.46) 06/18/16 06:01 Urine Color Straw (Yellow) 06/17/16 00:16 Urine Turbidity Clear (Clear) 06/17/16 00:16 Urine pH 6.0 (5.0-7.0) 06/17/16 00:16 Ur Specific [place] 1.006 (1.003-1.030) 06/17/16 00:16 Urine Protein <15 mg/dl mg/dL (Negative) 06/17/16 00:16 Urine Glucose (UA) Neg mg/dL (Negative) 06/17/16 00:16 Urine Ketones Neg mg/dL (Negative) 06/17/16 00:16 Urine Blood Sm (Negative) 06/17/16 00:16 Urine Nitrite Neg (Negative) 06/17/16 00:16 Urine Bilirubin Neg (Negative) 06/17/16 00:16 Urine Urobilinogen < 2.0 mg/dL (<2.0) 06/17/16 00:16 Ur Leukocyte Esterase Neg (Negative) 06/17/16 00:16 Urine WBC (Auto) < 1.0 /HPF (0.0-6.0) 06/17/16 00:16 Urine RBC (Auto) < 1.0 /HPF (0.0-6.0) 06/17/16 00:16
[2016-06-19] MEDS: PLAVIX PO SCH (09:32)
[2016-06-19] MEDS: PEPCID PO SCH (09:33)
[2016-06-19] MEDS: ELIQUIS PO SCH (09:33)
[2016-06-19] MEDS: DIOVAN PO SCH (09:34)
[2016-06-19] MEDS: COREG PO SCH (09:34)
[2016-06-19] MEDS: CORDARONE PO SCH (09:34)
--- NOTE | 2016-06-19 14:07 | Progress Note ---
Assessment and Plan - Patient Problems (1) Syncope Current Visit: Yes Status: Acute Qualifiers: Syncope type: S Encounter type: E Plan to address problem: Awaiting LifeVest prior to discharge, outpatient follow-up with his primary barrel raiser, following which he will be transitioned to a probable ICD therapy in the outpatients. (2) Ischemic cardiomyopathy Current Visit: Yes Status: Acute Plan to address problem: Medical therapy for coronary artery disease and ischemic cardiomyopathy. Left anterior descending artery stent was patent on a cardiac catheterization one month ago. (3) Ascending aortic aneurysm Current Visit: Yes Status: Acute Plan to address problem: The 4.8 cm ascending aorta appears to be a new finding, I have had extensive discussion with patient and regarding this, and the need for serial CT scan follow-up in the outpatient's. Subjective Date of service: 06/19/16 Interval history: Patient is awaiting LifeVest 15 today, following which he'll be discharged on medical therapy for his coronary artery disease and ischemic cardiomyopathy. Objective Vital Signs Temp Pulse Pulse Pulse Resp BP BP 06/19/16 11:30 97.4 F L 62 18 120/79 06/19/16 09:44 06/19/16 09:34 62 108/65 06/19/16 08:00 98.0 F 45 L 16 143/77 06/19/16 05:54 97.8 F 59 L 22 108/60 06/19/16 05:00 63 06/19/16 01:00 97.8 F 60 22 120/73 06/18/16 20:00 98 F 64 22 147/86 06/18/16 18:33 97.2 F L 69 16 121/74 Pulse Ox 06/19/16 11:30 100 06/19/16 09:44 99 06/19/16 09:34 06/19/16 08:00 98 06/19/16 05:54 98 06/19/16 05:00 06/19/16 01:00 99 06/18/16 20:00 98 06/18/16 18:33 99 - Physical Examination General: Appears Well, No Apparent Distress HEENT: Positive: PERRL Neck: Positive: trachea midline Cardiac: Positive: Reg Rate and Rhythm Lungs: Positive: Decreased Breath Sounds Neuro: Positive: Grossly Intact Abdomen: Positive: Soft Skin: Positive: Clear Extremities: Absent: edema - Imaging and Cardiology EKG: image reviewed
[2016-06-19 17:20] VITALS: BP 130/80
== END 2016-06-19 18:26 | disposition home or self-care (01) | DRG 309 ==
LOC: ED 23:38 → 4A 06-17 05:49
PROVIDERS: ADMIT Internal Medicine; ATTEND Internal Medicine
DX: I48.0 Paroxysmal atrial fibrillation (principal); I25.110 Atherosclerotic heart disease of native coronary artery with unstable angina pectoris; E78.5 Hyperlipidemia, unspecified; I10 Essential (primary) hypertension; I25.5 Ischemic cardiomyopathy; E78.00 Pure hypercholesterolemia, unspecified; M10.9 Gout, unspecified; I71.2 Thoracic aortic aneurysm, without rupture; Z82.49 Family history of ischemic heart disease and other diseases of the circulatory system; Z90.49 Acquired absence of other specified parts of digestive tract; Z95.5 Presence of coronary angioplasty implant and graft; I25.2 Old myocardial infarction; Z79.899 Other long term (current) drug therapy; Z98.890 Other specified postprocedural states
CPT/HCPCS: 36415; 71010; 71275; 80048; 80053; 81001; 82550; 82553; 83735; 84439; 84443; 84484; 85027; 85379; 85610; 85730; 93005; 93010; 96360; 96372; A9270-GY; J1650; J7030; Q9967

== ENCOUNTER 2016-09-06 11:11 | Observation (INO) | payer OTHER ==
[2016-09-06] MEDS ORDERED: ANCEF/STERILE WATER 2 GM/20 ML 2 GM/20 ML SYRINGE IV NR (12:00)
[2016-09-06] MEDS ORDERED: NACL 0.45% 1000 ML 1,000 ML IV SCH (12:00)
[2016-09-06 12:06] LABS: Basophils % (Auto) 0.7 % (0.0-1.8); Eosinophils % (Auto) 1.6 % (0.0-4.3); Hematocrit 47.1 % (35.5-45.6); Hemoglobin 15.6 gm/dl (11.8-15.2); Mean Corpuscular HGB Conc 33 % (32-34); Mean Corpuscular Hemoglobin 29 pg (28-32); Mean Corpuscular Volume 86 fl (84-94); Platelet Count 215 K/mm3 (140-440); Red Blood Count 5.47 M/mm3 (3.65-5.03); Red Cell Distribution Width 14.9 % (13.2-15.2); White Blood Count 7.2 K/mm3 (4.5-11.0)
[2016-09-06 12:15] LABS: INR 1.06 (0.87-1.13)
[2016-09-06 12:16] LABS: Partial Thromboplastin Time 32.5 Sec. (24.2-36.6)
[2016-09-06] MEDS ORDERED: NACL 0.9% 500 ML IR ONE (12:29)
[2016-09-06] MEDS ORDERED: NACL 0.9% 1,000 ML, VANCOMYCIN VIAL 1,000 MG IR ONE (12:32)
[2016-09-06 12:40] LABS: Alanine Aminotransferase 14 units/L (7-56); Albumin 4.4 g/dL (3.9-5); Albumin/Globulin Ratio 1.8 %; Alkaline Phosphatase 61 units/L (35-129); Anion Gap 16 mmol/L; BUN/Creatinine Ratio 13.07; Blood Urea Nitrogen 17 mg/dL (9-20); Calcium 9.2 mg/dL (8.4-10.2); Carbon Dioxide 25 mmol/L (22-30); Chloride 106.3 mmol/L (98-107); Glucose 101 mg/dL (75-100); Potassium 4.1 mmol/L (3.6-5.0); Sodium 143 mmol/L (137-145); Total Protein 6.9 g/dL (6.3-8.2)
[2016-09-06] MEDS ORDERED: ANCEF/STERILE WATER 2 GM/20 ML 2 GM/20 ML SYRINGE IV ONE (12:59)
[2016-09-06] MEDS: VERSED ONE ×3 (13:20→13:31)
[2016-09-06] MEDS: SUBLIMAZE ONE ×4 (13:20→13:52)
[2016-09-06] MEDS: XYLOCAINE 2% INFILTRATI ONE ×2 (13:20→13:35)
[2016-09-06] MEDS: MARCAINE 0.25% INFILTRATI ONE ×2 (13:20→13:35)
[2016-09-06] MEDS ORDERED: VANCOMYCIN VIAL 1,000 MG in NACL 0.9% 1,000 ML IRRIGATION ONE (13:21)
--- NOTE | 2016-09-06 14:51 | Event Note ---
Date: 09/06/16 Pt underwent ICD implant without any apparent complications. If stable, he can be discharged home tomorrow morning and can restart eliquis as outpatient in 2 days. Please prescribe following at time of discharge: 1. Keflex 500 tid x 3 days 2. Percocet 5/325 q 6 hours prn pain. Wilfredo Moreira MD
[2016-09-06] MEDS ORDERED: NORCO 5/325 PO PRN (14:52)
[2016-09-06] MEDS ORDERED: ASPIRIN PO SCH (15:00)
--- NOTE | 2016-09-06 15:57 | XRay Report ---
PORTABLE CHEST INDICATION: Pacemaker postop. COMPARISON: 06/17/2016 FINDINGS: Portable, frontal chest radiograph demonstrates a new left pacemaker with single ventricular lead. Stable cardiomediastinal silhouette/possible cardiomegaly. Clear lungs. EKG leads. Intact bones. CONCLUSION: No acute complication following pacemaker placement, as described. Thank you for the opportunity to participate in this patient's care.
[2016-09-06] MEDS: COREG PO SCH ×2 (16:55→23:01)
[2016-09-06] MEDS: BABY ASPIRIN PO SCH (16:56)
--- NOTE | 2016-09-06 17:23 | Admit Criteria Form ---
Admission Criteria Documentation: TELEMETRY CARE Telemetry Admission Guidelines (Place 'X' for any and all applicable criteria): Admission to telemetry [A] may be indicated for ANY ONE of the following(1)(2)(3 )(4)(5): [X ]I. Cardiac disease, including ANY ONE of the following (9)(10)(11)(12)( 13): [ ]a) Postacute AK [ ]b) Low-risk patients with ST-segment elevation AK who have undergone successful percutaneous coronary intervention [ ]c) Unstable angina [ ]d) Suspected AK (until it is ruled out) [ ]e) Post cardiac surgery (first 48 to 72 hours unless complications occur) [ ]f) Acute arrhythmias (including significant tachycardia or bradycardia) [B] [ ]g) Firing of an implantable cardioverter defibrillator [C] [ ]h) Suspected pacemaker or implantable cardioverter defibrillator malfunction (10) [ ]i) New administration or adjustment of an antiarrhythmic drug [D ] [ ]j) Child admitted for acute congestive heart failure [ ]j) Long QT syndrome [ ]k) Advanced heart block (eg, second-degree Mobitz type II, third- degree heart block) [ ]l) Acute myocarditis or pericarditis [ X]m) Short-term (ambulatory or inpatient) monitoring after a cardiac procedure as indicated by ANY ONE of the following [E]: [ ]i) Electrophysiologic studies [ ]ii) Percutaneous coronary intervention with stent placement [ ]iii) Pacemaker placement with cardiac conduction defect [X ]iv) Implantable cardiac defibrillator placement [ ]II. Drug overdose or poisoning with substance that causes arrhythmias or QT prolongation (eg, phenothiazines, sympathomimetic agents, cyclic antidepressants, digitalis, antiarrhythmic drugs)(15) [ ]III. Short-term (ambulatory or inpatient) monitoring after therapeutic or diagnostic procedure requiring conscious sedation or anesthesia (eg, endoscopy, elective cardioversion) [ ]IV. Acute cerebrovascular even[F](18) [ ]V. Massive blood transfusion (eg, at least 10 units of packed red blood cells in 24 hours) [ ]. Variceal bleeding after endoscopy, sclerotherapy, or IV vasopressin [ ]VII. Uncorrected electrolyte abnormalities associated with an increased risk of dangerous arrhythmia [G]; examples include [ ]a) Hyperkalemia with attributable ECG changes [ ]b) Potassium greater than 6.5 mmol/L (mEq/L) in a patient without history of chronic renal disease [ ]c) Prolonged QT attributed to hypokalemia, hypomagnesemia, or hypocalcemia [ ]VIII.Unexplained syncope or other neurologic event suspected of being due to arrhythmia due to a finding that increases risk; examples include(19)(20)(21): [ ]a) High-risk ECG findings (eg, bifascicular block, bradycardia, abnormal QT interval, ventricular pre- excitation) [ ]b) History of previous syncope due to arrhythmia [ ]c) Abnormal ventricular function (eg, reduced ejection fraction ) [ ]d) Exertional or supine syncope [ ]e) Concerning syncope characteristics (eg, sudden loss of consciousness without prodrome) [ ]f) Family history of sudden [ ]g) Use of arrhythmogenic medication [ ]h) Suspected cardiac ischemia [ ]i) Known channelopathy (eg, long QT syndrome, Brugada syndrome, or catecholaminergic paroxysmal ventricular tachycardia) [ ]j) Known structural heart disease (eg, hypertrophic cardiomyopathy , severe valvular disease) [ ]k) Palpitations preceding syncope The original [employer] content created by [employer] has been revised. The portions of the content which have been revised are identified through the use of italic text or in bold, and [employer] license of [facility] [employer] has neither reviewed nor approved the modified material. All other unmodified content is copyright [employer]. Please see references footnoted in the original [employer] edition 2016 Admission Criteria Met: Yes
[2016-09-06] MEDS ORDERED: SACUBITRIL PO SCH (18:00)
[2016-09-06] MEDS ORDERED: VALSARTAN PO SCH (18:00)
[2016-09-06] MEDS: ANCEF/NS 1 GM/50 ML 1 GM/50 ML BAG IV SCH (18:31)
[2016-09-06] MEDS ORDERED: AMBIEN PO PRN (21:51)
[2016-09-06] MEDS: PEPCID PO SCH (23:01)
[2016-09-06] MEDS: CORDARONE PO SCH (23:02)
[2016-09-07] MEDS: ANCEF/NS 1 GM/50 ML 1 GM/50 ML BAG IV SCH (01:46)
--- NOTE | 2016-09-07 10:00 | Short Stay Summary ---
Short Stay Documentation Date of service: 09/07/16 - History H&P: obtained from office - Allergies and Medications Current Medications: Allergies No Known Allergies Allergy (Unverified 06/04/14 16:06) Home Medications Medication Instructions Recorded Confirmed Last Taken Type Aspirin [Aspirin TAB] 81 mg PO QDAY #30 tablet 02/27/15 09/06/16 09/05/16 Rx 81mg Famotidine [Pepcid] 20 mg PO BID #60 tablet 02/27/15 09/06/16 09/05/16 Rx 20mg Carvedilol [Coreg] 3.125 mg PO BID 06/17/16 09/06/16 09/05/16 History 3.125mg Amiodarone [Cordarone 200 MG TAB] 200 mg PO BID #60 tablet 06/18/16 09/06/1608/17 Rx 200mg Apixaban [Eliquis] 5 mg PO Q12HR #60 tablet 06/18/16 09/06/16 09/04/16 Rx 5mg AtorvaSTATin [Lipitor] 40 mg PO QHS #30 tablet 06/18/16 09/06/16 09/05/16 Rx 40mg Nitroglycerin [Nitrostat] 0.4 mg SL .Q5MIN PRN #30 tablet 06/18/16 09/06/16 Unknown Rx Sacubitril/Valsartan [Entresto 24 1 tab PO DAILY 09/06/16 09/06/16 09/05/16 History mg-26 mg Tablet] 1 tab Active Medications Acetaminophen/Hydrocodone Bitart ([place] 5/325) 1 each PO Q6H PRN PRN Reason: Pain, Moderate (4-6) Last Admin: 09/06/16 16:54 Dose: 1 each Amiodarone HCl (Cordarone) 200 mg PO BID [facility] Last Admin: 09/06/16 23:02 Dose: 200 mg Aspirin (Baby Aspirin) 81 mg PO QDAY [facility] Last Admin: 09/06/16 16:56 Dose: 81 mg Atorvastatin Calcium (Lipitor) 40 mg PO QHS [facility] Last Admin: 09/06/16 23:01 Dose: 40 mg Carvedilol (Coreg) 3.125 mg PO BID [facility] Last Admin: 09/06/16 23:01 Dose: 3.125 mg Famotidine (Pepcid) 20 mg PO BID [facility] Last Admin: 09/06/16 23:01 Dose: 20 mg Sodium Chloride (Nacl 0.45% 1000 Ml) 1,000 mls @ 50 mls/hr IV DIRECT NARGIS Miscellaneous Medication (Sacubitril/Valsartan [Entresto 24 Mg-26 Mg Tablet]) 1 tab PO DAILY [facility] Zolpidem Tartrate (Ambien) 5 mg PO QHS PRN PRN Reason: Sleep Last Admin: 09/06/16 22:08 Dose: 5 mg - Physical exam General appearance: no acute distress HEENT: PERRLA Lungs: Clear to auscultation Heart: Regular rate - Brief post op/procedure progress note Procedure: Pt underwent ICD implant. Condition: stable - Hospital course Hospital course: Stable overnight observation. Normal function on ICD interrogation. - Disposition Condition at discharge: Good Disposition: [id number] TO HOME OR SELFCARE Short Stay Discharge Plan Activity: advance as tolerated Diet: low fat, low cholesterol, low salt Wound: keep clean and dry Special Instructions: keep arm in sling for 72 hours Additional Instructions: RESTART ELIQUIS IN 2 DAYS AN OUTPATIENT. Follow up with: PRIMARY CARE, [Primary Care Provider] - 7 Days Prescriptions: Cephalexin [Keflex] 500 mg PO TID #9 capsule
[2016-09-07 10:42] VITALS: BP 149/93
[2016-09-07] MEDS: BABY ASPIRIN PO SCH (11:41)
[2016-09-07] MEDS: CORDARONE PO SCH (11:41)
[2016-09-07] MEDS: COREG PO SCH (11:41)
[2016-09-07] MEDS: PEPCID PO SCH (11:41)
== END 2016-09-07 13:12 | disposition home or self-care (01) ==
LOC: OPU 11:11 → INTOOBSV 14:52 → 4A 14:52
PROVIDERS: ADMIT Internal Medicine Cardiovascular Disease; ATTEND Internal Medicine Cardiovascular Disease
DX: I25.5 Ischemic cardiomyopathy (principal); I48.0 Paroxysmal atrial fibrillation; I25.10 Atherosclerotic heart disease of native coronary artery without angina pectoris; E78.5 Hyperlipidemia, unspecified; I10 Essential (primary) hypertension; F17.210 Nicotine dependence, cigarettes, uncomplicated; Z82.49 Family history of ischemic heart disease and other diseases of the circulatory system; Z80.9 Family history of malignant neoplasm, unspecified
CPT/HCPCS: 33249; 36415; 71010; 80053; 85025; 85610; 85730; 93005; 93010; 96365; 96375; 96376; A9270; C1722; C1781; C1892; C1895; G0378; J0690; J2250; J3010; J3370

== ENCOUNTER 2018-03-29 04:08 | Inpatient (IN) | payer OTHER ==
[2018-03-29] MEDS ORDERED: MORPHINE IV ONE (04:28)
[2018-03-29] MEDS ORDERED: ZOFRAN IV ONE (04:28)
[2018-03-29] MEDS ORDERED: LASIX ONE (04:49)
[2018-03-29 04:52] LABS: Basophils # (Auto) 0.2 K/mm3 (0.0-0.1); Basophils % (Auto) 1.5 % (0.0-1.8); Eosinophils # (Auto) 0.2 K/mm3 (0.0-0.4); Eosinophils % (Auto) 1.3 % (0.0-4.3); Hematocrit 44.6 % (35.5-45.6); Hemoglobin 14.2 gm/dl (11.8-15.2); Lymphocytes # (Auto) 1.1 K/mm3 (1.2-5.4); Lymphocytes % (Auto) 9.5 % (13.4-35.0); Mean Corpuscular HGB Conc 32 % (32-34); Mean Corpuscular Hemoglobin 28 pg (28-32); Mean Corpuscular Volume 89 fl (84-94); Monocytes # (Auto) 0.6 K/mm3 (0.0-0.8); Monocytes % (Auto) 5.5 % (0.0-7.3); Platelet Count 197 K/mm3 (140-440); Red Blood Count 4.99 M/mm3 (3.65-5.03); Red Cell Distribution Width 14.8 % (13.2-15.2)
[2018-03-29] MEDS ORDERED: LASIX IV ONE (04:54)
[2018-03-29] MEDS ORDERED: TRIDIL DRIP 50MG/250ML 50 MG/250 ML BOTTLE IV SCH (05:00)
[2018-03-29 05:02] LABS: INR 0.98 (0.87-1.13); Partial Thromboplastin Time 30.2 Sec. (24.2-36.6)
[2018-03-29 05:06] LABS: BUN/Creatinine Ratio 13; Blood Urea Nitrogen 18 mg/dL (9-20); Hemolysis Index 10
--- NOTE | 2018-03-29 05:27 | XRay Report ---
FINAL REPORT EXAM: XR CHEST ROUTINE 2V HISTORY: Chest Pain TECHNIQUE: PA and lateral chest radiographs PRIORS: 03/26/2018 FINDINGS: No mediastinal shift. Cardiac silhouette is not enlarged. No pneumothorax or definite effusion. New right lower lung opacity and possibly lingular opacity. No acute skeletal finding. Left chest pacemak er/AICD. IMPRESSION: New focal airspace disease in the right lower lung and possibly lingula. PA and lateral chest radiogr aphic follow-up to resolution is recommended.
[2018-03-29] MEDS ORDERED: LEVAQUIN 750MG/150ML 750 MG/150 ML BAG IV ONE (05:33)
--- NOTE | 2018-03-29 05:47 | Emergency Department Report ---
ED Shortness of Breath HPI - General Chief Complaint: Chest Pain Stated Complaint: CHEST PAIN/SOB Time Seen by Provider: 03/29/18 04:17 Source: EMS Mode of arrival: Ambulatory Limitations: No Limitations - History of Present Illness Initial Comments: Patient is a 62-year-old male with a past medical history of congestive heart failure history of AK and hypertension who has a EF of 27% and was recently released from the hospital yesterday secondary to his defibrillator firing was complaining of shortness of breath. Patient states that once he arrived back home he became very short of breath has been coughing. Patient states cough tonight became unbearable and he was unable to stop. This felt as though he was going to pass out. Patient states he is very short of breath and wheezing he's never wheezed before. Patient states there is some mild chest discomfort as well. Patient's more short of breath with movement. Patient states that the chest pressure is 6 out of 10 in severity. - Related Data Home Medications Medication Instructions Recorded Confirmed Last Taken Aspirin 81 mg PO QDAY 03/26/18 03/26/18 Unknown Previous Rx's Medication Instructions Recorded Last Taken Type Famotidine [Pepcid] 20 mg PO BID #60 tablet 02/27/15 09/24/16 Rx Apixaban [Eliquis] 5 mg PO Q12HR #60 tablet 06/18/16 09/24/16 Rx AtorvaSTATin [Lipitor] 40 mg PO QHS #30 tablet 06/18/16 09/24/16 Rx Acetaminophen [Acetaminophen TAB] 650 mg PO Q4H PRN #15 tablet 03/27/18 Unknown Rx Amiodarone [Cordarone 200 MG TAB] 200 mg PO BID #60 tablet 03/27/18 Unknown Rx Amiodarone [Cordarone 200 MG TAB] 400 mg PO BID #6 tablet 03/27/18 Unknown Rx Metoprolol Xl [Metoprolol 100 mg PO QDAY #30 tablet 03/27/18 Unknown Rx SUCCINATE ER TAB] Sacubitril/Valsartan [Entresto 24 1 tab PO DAILY #30 tab 03/27/18 09/24/16 Rx mg-26 mg (Nf)] Allergies Allergy/AdvReac Type Severity Reaction Status Date / Time No Known Allergies Allergy Unverified 06/04/14 16:06 ED Review of Systems ROS: Stated complaint: CHEST PAIN/SOB Other details as noted in HPI Comment: All other systems reviewed and negative ED Past Medical Hx - Past Medical History Previous Medical History?: Yes Hx Hypertension: Yes Hx Heart Attack/AMI: Yes Hx Congestive Heart Failure: Yes Hx Diabetes: No Hx Asthma: No Hx COPD: No Additional medical history: gasritis. gout. high cholesterol - Surgical History Past Surgical History?: Yes Hx Coronary Stent: Yes Hx Internal Defibrillator: Yes Hx Appendectomy: Yes Additional Surgical History: October 2016 patient had stress tests performed which showed that he had a EF of 27%. There was left ventricular hypokinesis. There is no acute ischemic changes but the patient does have past LAD distribution fixed wall deficits. Defibrillator September 2016 - Social History Smoking Status: Former Smoker Substance Use Type: None - Medications Home Medications: Home Medications Medication Instructions Recorded Confirmed Last Taken Type Famotidine [Pepcid] 20 mg PO BID #60 tablet 02/27/15 03/26/18 09/24/16 Rx Apixaban [Eliquis] 5 mg PO Q12HR #60 tablet 06/18/16 03/26/18 09/24/16 Rx AtorvaSTATin [Lipitor] 40 mg PO QHS #30 tablet 06/18/16 03/26/18 09/24/16 Rx Aspirin 81 mg PO QDAY 03/26/18 03/26/18 Unknown History Acetaminophen [Acetaminophen TAB] 650 mg PO Q4H PRN #15 tablet 03/27/18 Unknown Rx Amiodarone [Cordarone 200 MG TAB] 200 mg PO BID #60 tablet 03/27/18 Unknown Rx Amiodarone [Cordarone 200 MG TAB] 400 mg PO BID #6 tablet 03/27/18 Unknown Rx Metoprolol Xl [Metoprolol 100 mg PO QDAY #30 tablet 03/27/18 Unknown Rx SUCCINATE ER TAB] Sacubitril/Valsartan [Entresto 24 1 tab PO DAILY #30 tab 03/27/18 03/26/18 09/24/16 Rx mg-26 mg (Nf)] ED Physical Exam - General Limitations: No Limitations General appearance: in no apparent distress, anxious, in distress - Head Head exam: Present: atraumatic, normocephalic - Eye Eye exam: Present: normal appearance, PERRL, EOMI - ENT ENT exam: Present: normal orophraynx, mucous membranes moist - Neck Neck exam: Present: normal inspection - Respiratory Respiratory exam: Present: respiratory distress, wheezes, rales. Absent: rhonchi, stridor - Cardiovascular Cardiovascular Exam: Present: regular rate, normal rhythm. Absent: systolic murmur, diastolic murmur, rubs, gallop - GI/Abdominal GI/Abdominal exam: Present: soft, normal bowel sounds. Absent: distended, tenderness, guarding, rebound - Rectal Rectal exam: Present: deferred - Extremities Exam Extremities exam: Present: normal inspection - Back Exam Back exam: Present: normal inspection - Neurological Exam Neurological exam: Present: alert, oriented X3 - Psychiatric Psychiatric exam: Present: normal affect, normal mood - Skin Skin exam: Present: warm, dry, intact, normal color. Absent: rash ED Course Vital Signs 03/29/18 03/29/18 04:36 04:55 Temperature 98.7 F Pulse Rate 71 Respiratory 21 Rate Blood Pressure 149/92 O2 Sat by Pulse 98 98 Oximetry ED Medical Decision Making - Lab Data Result diagrams: 03/29/18 04:36 03/29/18 04:36 Lab Results 03/29/18 03/29/18 03/29/18 Range/Units 04:36 04:36 04:36 WBC 11.5 H (4.5-11.0) K/mm3 RBC 4.99 (3.65-5.03) M/mm3 Hgb 14.2 (11.8-15.2) gm/dl Hct 44.6 (35.5-45.6) % MCV 89 (84-94) fl MCH 28 (28-32) pg MCHC 32 (32-34) % RDW 14.8 (13.2-15.2) % Plt Count 197 (140-440) K/mm3 Lymph % (Auto) 9.5 L (13.4-35.0) % Gonzales % (Auto) 5.5 (0.0-7.3) % Eos % (Auto) 1.3 (0.0-4.3) % Baso % (Auto) 1.5 (0.0-1.8) % Lymph # 1.1 L (1.2-5.4) K/mm3 Gonzales # 0.6 (0.0-0.8) K/mm3 Eos # 0.2 (0.0-0.4) K/mm3 Baso # 0.2 H (0.0-0.1) K/mm3 Seg Neutrophils % 82.2 H (40.0-70.0) % Seg Neutrophils # 9.4 H (1.8-7.7) K/mm3 PT 13.4 (12.2-14.9) Sec. INR 0.98 (0.87-1.13) APTT 30.2 (24.2-36.6) Sec. D-Dimer < 135 (0-234) ng/mlDDU Sodium (137-145) mmol/L Potassium (3.6-5.0) mmol/L Chloride (98-107) mmol/L Carbon Dioxide (22-30) mmol/L Anion Gap mmol/L BUN (9-20) mg/dL Creatinine (0.8-1.5) mg/dL Estimated GFR ml/min BUN/Creatinine Ratio % Glucose (75-100) mg/dL Calcium (8.4-10.2) mg/dL Troponin T (0.00-0.029) ng/mL NT-Pro-B Natriuret Pep 2045 H (0-900) pg/mL 03/29/18 Range/Units 04:36 WBC (4.5-11.0) K/mm3 RBC (3.65-5.03) M/mm3 Hgb (11.8-15.2) gm/dl Hct (35.5-45.6) % MCV (84-94) fl MCH (28-32) pg MCHC (32-34) % RDW (13.2-15.2) % Plt Count (140-440) K/mm3 Lymph % (Auto) (13.4-35.0) % Gonzales % (Auto) (0.0-7.3) % Eos % (Auto) (0.0-4.3) % Baso % (Auto) (0.0-1.8) % Lymph # (1.2-5.4) K/mm3 Gonzales # (0.0-0.8) K/mm3 Eos # (0.0-0.4) K/mm3 Baso # (0.0-0.1) K/mm3 Seg Neutrophils % (40.0-70.0) % Seg Neutrophils # (1.8-7.7) K/mm3 PT (12.2-14.9) Sec. INR (0.87-1.13) APTT (24.2-36.6) Sec. D-Dimer (0-234) ng/mlDDU Sodium 140 (137-145) mmol/L Potassium 4.3 (3.6-5.0) mmol/L Chloride 103.7 (98-107) mmol/L Carbon Dioxide 26 (22-30) mmol/L Anion Gap 15 mmol/L BUN 18 (9-20) mg/dL Creatinine 1.4 (0.8-1.5) mg/dL Estimated GFR > 60 ml/min BUN/Creatinine Ratio 13 % Glucose 107 H (75-100) mg/dL Calcium 9.0 (8.4-10.2) mg/dL Troponin T < 0.010 (0.00-0.029) ng/mL NT-Pro-B Natriuret Pep (0-900) pg/mL - EKG Data -: EKG Interpreted by Me - EKG Data 03/29/18 05:45 Patient's EKG shows sinus rhythm of 72 and normal axis normal and on. There is LVH present. There are no ST segment elevations or depressions. There are nons pecific T-wave flattening. Time of interpretation the fourth - Radiology Data Patient with infiltrate in the right lower right middle lobe. This is dramatically different from the chest x-ray from 2 days ago. - Medical Decision Making Patient wanted to try being on nasal cannula before more aggressive oxygen delivery methods. Patient tolerated 3 L of oxygen well. Patient was given Lasix which did cause the patient started diuresing. Patient states his shortness of breath is starting to improve. Nitroglycerin drip was held secondary to blood pressure decreasing on its own. Patient received nitroglycerin prior to arrival. Patient could have a atypical pulmonary edema secondary to heart failure which is one-sided or could also have pneumonia. Blood cultures have been ordered and the patient will be started on Levaquin. Patient will be admitted to the hospital at this time. Critical Care Time: Yes (30) Critical care attestation.: If time is entered above; I have spent that time in minutes in the direct care of this critically ill patient, excluding procedure time. ED Disposition Clinical Impression: Acute respiratory distress, Pulmonary infiltrate Chest pain Qualifiers: Chest pain type: unspecified Qualified Code(s): R07.9 - Chest pain, unspecified Congestive heart failure Qualifiers: Heart failure type: unspecified Heart failure chronicity: acute on chronic Qualified Code(s): I50.9 - Heart failure, unspecified Disposition: 09 OP ADMIT IP TO THIS HOSP Is pt being admited?: Yes Does the pt Need Aspirin: No Condition: Stable Instructions: Chest Pain (ED) Time of Disposition: 05:48
[2018-03-29] MEDS ORDERED: TYLENOL PO PRN (07:14)
--- NOTE | 2018-03-29 07:14 | History and Physical Report ---
History of Present Illness Date of examination: 03/29/18 Chief complaint: SOB and coughing History of present illness: Patient is a 62 yo man with a history of ICM with ICD, afib on , CHF, EF 26% on 10/2016 stress test, CAD s/p AMI, hypertension, Gout, GERD and dyslipidemia who I discharged on after his AICD firing due to Afib with RVR. He returns today with severe constant acute onset of SOB and coughing associated with chest tightness aggravated by coughing, breathing and movement. Patient states he has been coughing all night and he was unable to stop. Then he felt lightheaded from the coughing. Patient states he is very short of breath and wheezing which he had never experienced before. Patient states there is some mild moderated intermittent nonradiating chest discomfort as well. Patient's more short of breath with movement. Patient states that the chest pressure is 6 out of 10 in severity. PMH: as hpi PSH: AICD, appendectomy, cardiac cath with shent placed in the "widowmaker" in [place] 2014 while vacation for anniversary SH: smoked cigars for 25 years but quit 2014 with the heart attack, daily alcohol drink of 2 glasses of vodka and juice last drink was Monday, no drugs FH: Mother with hypertension, CHF, father of unknown cancer, not aware of DM ROS: Constitutional: denies: fever ENT: denies: throat or neck pain Respiratory: + cough, shortness of breath Cardiovascular: +chest pain Endocrine: denies unexplained weight loss or gain Gastrointestinal: denies: abdominal pain, nausea Genitourinary: denies: dysuria Rectal: denies no incontinence, no bleeding, no itching, no discharge Musculoskeletal: denies swelling, myaglia, muscle weakness Skin: denies: rash Neurological: denies: headache Hematological/Lymphatic: denies: easy bleeding or easy bruising Allergic/Immunologic: no urticaria, no allergic rhinitis, no anaphylaxis Psych: denies sadness or hopelessness, SI/HI Medications and Allergies Allergies Allergy/AdvReac Type Severity Reaction Status Date / Time No Known Allergies Allergy Unverified 06/04/14 16:06 Home Medications Medication Instructions Recorded Confirmed Last Taken Type Famotidine [Pepcid] 20 mg PO BID #60 tablet 02/27/15 03/26/18 09/24/16 Rx Apixaban [Eliquis] 5 mg PO Q12HR #60 tablet 06/18/16 03/26/18 09/24/16 Rx AtorvaSTATin [Lipitor] 40 mg PO QHS #30 tablet 06/18/16 03/26/18 09/24/16 Rx Aspirin 81 mg PO QDAY 03/26/18 03/26/18 Unknown History Acetaminophen [Acetaminophen TAB] 650 mg PO Q4H PRN #15 tablet 03/27/18 Unknown Rx Amiodarone [Cordarone 200 MG TAB] 200 mg PO BID #60 tablet 03/27/18 Unknown Rx Amiodarone [Cordarone 200 MG TAB] 400 mg PO BID #6 tablet 03/27/18 Unknown Rx Metoprolol Xl [Metoprolol 100 mg PO QDAY #30 tablet 03/27/18 Unknown Rx SUCCINATE ER TAB] Sacubitril/Valsartan [Entresto 24 1 tab PO DAILY #30 tab 03/27/18 03/26/18 09/24/16 Rx mg-26 mg (Nf)] Active Meds: Active Medications Nitroglycerin/Dextrose (Tridil Drip 50mg/250ml) 50 mg in 250 mls @ 3 mls/hr IV TITR NARGIS; Protocol Exam - Physical Exam Narrative exam: Gen: WDWN, NAD, Awake, Alert, Orientated x 3 HEENT: NCAT, EOMI, PERRL, OP Clear Neck: supple, no adenopathy, no thyromegaly, no JVD CVS/Heart: Regular bradycardia, normal S1S2, pulses present bilaterally Chest/Lungs: diminished bs bilateral, inspiratory crackles worse on the right base, Symmetrical chest expansion, good air entry bilaterally GI/Abdomen: soft, NTND, good bowel sounds, no guarding or rebound /Bladder: no suprapubic tenderness, no CVA or paraspinal tenderness Extermity/Skin: no c/c/e, no obvious rash MSK: FROM x 4 Neuro: CN 2-12 grossly intact, no new focal deficits Psych: calm - Constitutional Vitals: Temp Pulse Resp BP Pulse Ox 98.7 F 71 21 149/92 98 03/29/18 04:36 03/29/18 04:36 03/29/18 04:36 03/29/18 04:36 03/29/18 04:55 Results - Labs CBC & Chem 7: 03/29/18 04:36 03/29/18 04:36 Labs: Abnormal lab results 03/29/18 03/29/18 03/29/18 Range/Units 04:36 04:36 04:36 WBC 11.5 H (4.5-11.0) K/mm3 Lymph % (Auto) 9.5 L (13.4-35.0) % Lymph # 1.1 L (1.2-5.4) K/mm3 Baso # 0.2 H (0.0-0.1) K/mm3 Seg Neutrophils % 82.2 H (40.0-70.0) % Seg Neutrophils # 9.4 H (1.8-7.7) K/mm3 Glucose 107 H (75-100) mg/dL NT-Pro-B Natriuret Pep 2045 H (0-900) pg/mL Assessment and Plan Patient is a 62 yo man with a history of ICM with ICD, afib on Eliquis, CHF, EF 26% on 10/2016 stress test, CAD s/p AMI with cardiac stent, hypertension, Gout, GERD and dyslipidemia who I discharged on after his AICD firing due to Afib with RVR. He returns today with severe constant acute onset of SOB and coughing associated with chest tightness aggravated by coughing, breathing and movement. Patient states he has been coughing all night and he was unable to stop. Then he felt lightheaded from the coughing. Patient states he is very short of breath and wheezing which he had never experienced before. Patient states there is some mild moderated intermittent nonradiating chest discomfort as well. Patient's more short of breath with movement. Patient states that the chest pressure is 6 out of 10 in severity. * 2v CXR Impression: New focal airspace disease in the right lower lung and possible lingula. PA and lateral chest radiographic follow-up to resolution is recommended * wbc 11.5 * proBNP 2045 with negative Troponin T * negative D-Dimer -Aspiration Pneumonia RLL: Double cover since he was just in the hospital, send rapid FLU test, get 2v CXR tomorrow -Acute on chronic systolic heart failure: Consult Cardiology, lasix given -Afib: continue Eliquis, continue Amiodarone, he was given script for Amiodarone 400mg bid x 3 days then 200mg bid -Bronchospasm possible from pna but bblocker changed from coreg to metoprolol -Hypertension: continue home regimen -DVT prophylaxis: Rosalva
[2018-03-29] MEDS ORDERED: COREG PO ONE (08:00)
[2018-03-29] MEDS ORDERED: PEPCID ONE (09:45)
[2018-03-29] MEDS ORDERED: COREG ONE (09:45)
[2018-03-29] MEDS ORDERED: BABY ASPIRIN ONE (09:45)
[2018-03-29] MEDS ORDERED: SACUBITRIL PO SCH (10:00)
[2018-03-29] MEDS ORDERED: VALSARTAN PO SCH (10:00)
[2018-03-29] MEDS: PEPCID PO SCH ×2 (10:13→21:41)
[2018-03-29] MEDS: BABY ASPIRIN PO SCH (10:13)
[2018-03-29] MEDS: ELIQUIS PO SCH ×2 (10:39→21:41)
[2018-03-29] MEDS: ENTRESTO 24 - 26 MG PO SCH (12:12)
--- NOTE | 2018-03-29 13:07 | Consultation ---
Addendum entered and electronically signed by ANURADHA YOU MD 03/29/18 15:57: 62-year-old man with history of coronary artery disease, dilated cardiomyopathy and in situ AICD. Last week, he was hospitalized following a defibrillator discharge, determined to be associated with his noncompliance with amiodarone therapy. He was just discharged, and readmitted the next day with sudden onset dyspnea and wheezing. Cardiac consultation was requested for "CHF". On further evaluation, the patient's chest x-ray reveals a right lower lobe infiltrate, otherwise no evidence of interstitial edema or heart failure. Recommendations: Defer to internal medicine and call pulmonary for management of right lower lobe pneumonia. Cardiac status is asymptomatic and stable. We'll continue medical management of the patient's underlying coronary artery disease, cardiac arrhythmias, ischemic cardiomyopathy with chronic systolic left ventricle dysfunction. Original Note: History of Present Illness Consult date: 03/29/18 Consult reason: congestive heart failure History of present illness: 62-year-old man with a history of an coronary artery disease, ischemic cardiomyopathy and has an AICD insitu for primary prevention. He is also on oral anticoagulation therapy with Eliquis for paroxysmal atrial fibrillation. Patient was just discharged from this hospital, 48 hours ago, with AICD discharge secondary to patient running out of amiodarone. He returns today with complaints of shortness of breath, wheezing and coughs. Initial workup with a chest x-ray is suggestive of right lower lobe pneumonia. No evidence of interstitial edema. A 12 lead ECG shows sinus rhythm with nonspecific Twave abnormalities. Medications and Allergies Allergies Allergy/AdvReac Type Severity Reaction Status Date / Time No Known Allergies Allergy Unverified 06/04/14 16:06 Home Medications Medication Instructions Recorded Confirmed Last Taken Type Famotidine [Pepcid] 20 mg PO BID #60 tablet 02/27/15 03/26/18 09/24/16 Rx Apixaban [Eliquis] 5 mg PO Q12HR #60 tablet 06/18/16 03/26/18 09/24/16 Rx AtorvaSTATin [Lipitor] 40 mg PO QHS #30 tablet 06/18/16 03/26/18 09/24/16 Rx Aspirin 81 mg PO QDAY 03/26/18 03/26/18 Unknown History Acetaminophen [Acetaminophen TAB] 650 mg PO Q4H PRN #15 tablet 03/27/18 Unknown Rx Amiodarone [Cordarone 200 MG TAB] 200 mg PO BID #60 tablet 03/27/18 Unknown Rx Amiodarone [Cordarone 200 MG TAB] 400 mg PO BID #6 tablet 03/27/18 Unknown Rx Metoprolol Xl [Metoprolol 100 mg PO QDAY #30 tablet 03/27/18 Unknown Rx SUCCINATE ER TAB] Sacubitril/Valsartan [Entresto 24 1 tab PO DAILY #30 tab 03/27/18 03/26/18 Rx mg-26 mg (Nf)] Active Meds: Active Medications Acetaminophen (Tylenol) 650 mg PO Q4H PRN PRN Reason: Pain MILD(1-3)/Fever >100.5/ARCHULETA Apixaban (Eliquis) 5 mg PO Q12HR [facility]; Protocol Last Admin: 03/29/18 10:39 Dose: 5 mg Documented by: Aspirin (Baby Aspirin) 81 mg PO QDAY [facility] Last Admin: 03/29/18 10:13 Dose: 81 mg Documented by: Atorvastatin Calcium (Lipitor) 40 mg PO QHS NARGIS Famotidine (Pepcid) 20 mg PO BID [facility] Last Admin: 03/29/18 10:13 Dose: 20 mg Documented by: Furosemide (Lasix) 20 mg PO QDAY NARGIS Nitroglycerin/Dextrose (Tridil Drip 50mg/250ml) 50 mg in 250 mls @ 3 mls/hr IV TITR NARGIS; Protocol Levofloxacin/Dextrose (Levaquin 750mg/150ml) 750 mg in 150 mls @ 100 mls/hr IV Q24HR [facility]; Protocol Piperacillin Sod/Tazobactam Sod (Zosyn/Ns 4.5gm/100ml) 4.5 gm in 100 mls @ 200 mls/hr IV Q8HR [facility]; Protocol Physical Examination Vital Signs Temp Pulse Resp BP Pulse Ox 98.7 F 71 21 149/92 98 03/29/18 04:36 03/29/18 04:36 03/29/18 04:36 03/29/18 04:36 03/29/18 04:36 General appearance: no acute distress HEENT: Positive: PERRL Cardiac: Positive: Reg Rate and Rhythm Lungs: Positive: Decreased Breath Sounds Neuro: Positive: Grossly Intact Extremities: Absent: edema Results 03/29/18 04:36 03/29/18 04:36 Coagulation 03/29/18 Range/Units 04:36 PT 13.4 (12.2-14.9) Sec. INR 0.98 (0.87-1.13) APTT 30.2 (24.2-36.6) Sec. CBC 03/29/18 Range/Units 04:36 WBC 11.5 H (4.5-11.0) K/mm3 RBC 4.99 (3.65-5.03) M/mm3 Hgb 14.2 (11.8-15.2) gm/dl Hct 44.6 (35.5-45.6) % Plt Count 197 (140-440) K/mm3 Lymph # 1.1 L (1.2-5.4) K/mm3 [place] # 0.6 (0.0-0.8) K/mm3 Eos # 0.2 (0.0-0.4) K/mm3 Baso # 0.2 H (0.0-0.1) K/mm3 Comprehensive Metabolic Panel 03/29/18 Range/Units 04:36 Sodium 140 (137-145) mmol/L Potassium 4.3 (3.6-5.0) mmol/L Chloride 103.7 (98-107) mmol/L Carbon Dioxide 26 (22-30) mmol/L BUN 18 (9-20) mg/dL Creatinine 1.4 (0.8-1.5) mg/dL Glucose 107 H (75-100) mg/dL Calcium 9.0 (8.4-10.2) mg/dL Assessment and Plan Pneumonia Paroxysmal afib on eliquis as an outpatient on amiodarone and metoprolol for suppression AICD insitu History of Ischemic cardiomyopathy History of CAD Resume medical therapy for paroxysmal atrial fibrillation, ischemic cardiomyopathy and coronary artery disease.
[2018-03-29] MEDS: ZOSYN/NS 4.5GM/100ML 4.5 GM/100 ML VIAL IV SCH ×2 (14:46→22:59)
[2018-03-29] MEDS ORDERED: ATIVAN IV PRN ×3 (16:16)
[2018-03-29] MEDS ORDERED: LIBRIUM PO PRN (16:16)
[2018-03-29] MEDS: VITAMIN B-1 PO SCH (17:26)
[2018-03-29] MEDS: CORDARONE PO SCH (21:41)
[2018-03-30] MEDS: ZOSYN/NS 4.5GM/100ML 4.5 GM/100 ML VIAL IV SCH ×2 (05:51→15:47)
[2018-03-30 06:11] LABS: Hemoglobin 13.2 gm/dl (11.8-15.2); Mean Corpuscular HGB Conc 33 % (32-34); Mean Corpuscular Hemoglobin 30 pg (28-32); Mean Corpuscular Volume 89 fl (84-94); Platelet Count 169 K/mm3 (140-440); Red Blood Count 4.48 M/mm3 (3.65-5.03); Red Cell Distribution Width 14.7 % (13.2-15.2)
[2018-03-30 06:35] LABS: Calcium 8.8 mg/dL (8.4-10.2)
--- NOTE | 2018-03-30 08:53 | XRay Report ---
CHEST XRAY, 2 VIEWS: History: Pneumonia. Findings: Compared to 03/29/18. Pacemaker device remains in good position. There is mild cardiomegaly. Pulmonary vessels are within normal limits. The lungs are clear and fully expanded. No infiltrate, pleural effusion or pneumothorax. Normal thoracic cage. IMPRESSION: Cardiomegaly. Lungs clear.
[2018-03-30] MEDS: LEVAQUIN 750MG/150ML 750 MG/150 ML BAG IV SCH (09:45)
[2018-03-30] MEDS: LASIX PO SCH (09:45)
[2018-03-30] MEDS: BABY ASPIRIN PO SCH (09:46)
[2018-03-30] MEDS: ELIQUIS PO SCH ×2 (09:46→21:43)
[2018-03-30] MEDS: VITAMIN B-1 PO SCH (09:46)
[2018-03-30] MEDS: PEPCID PO SCH ×2 (09:46→21:43)
[2018-03-30] MEDS: TOPROL XL PO SCH (09:47)
[2018-03-30] MEDS: CORDARONE PO SCH ×2 (09:47→21:43)
[2018-03-30] MEDS: ENTRESTO 24 - 26 MG PO SCH (09:48)
--- NOTE | 2018-03-30 10:51 | Progress Note ---
Assessment and Plan Pneumonia Paroxysmal afib on eliquis as an outpatient on amiodarone and metoprolol for suppression AICD insitu History of Ischemic cardiomyopathy History of CAD Continue medical therapy for paroxysmal atrial fibrillation, ischemic cardiomyopathy and coronary artery disease as tolerated. Otherwise, conservative cardiac management. Subjective Date of service: 03/30/18 Interval history: Patient has no cardiac complaints. Objective Vital Signs Temp Pulse Resp BP Pulse Ox 03/30/18 09:47 64 140/80 03/30/18 06:53 62 03/29/18 23:43 98.2 F 69 18 140/84 94 03/29/18 19:29 98.1 F 66 18 111/69 96 03/29/18 18:15 98.5 F 59 L 16 134/84 94 03/29/18 12:59 98.3 F 60 18 122/70 96 - Physical Examination General: No Apparent Distress HEENT: Positive: PERRL Cardiac: Positive: Reg Rate and Rhythm Lungs: Positive: Decreased Breath Sounds Neuro: Positive: Grossly Intact Extremities: Absent: edema - Labs and Meds CBC 03/30/18 Range/Units 05:23 WBC 7.3 (4.5-11.0) K/mm3 RBC 4.48 (3.65-5.03) M/mm3 Hgb 13.2 (11.8-15.2) gm/dl Hct 40.0 (35.5-45.6) % Plt Count 169 (140-440) K/mm3 Comprehensive Metabolic Panel 03/30/18 Range/Units 05:23 Sodium 145 (137-145) mmol/L Potassium 3.9 (3.6-5.0) mmol/L Chloride 106.6 (98-107) mmol/L Carbon Dioxide 26 (22-30) mmol/L BUN 16 (9-20) mg/dL Creatinine 1.5 (0.8-1.5) mg/dL Glucose 120 H (75-100) mg/dL Calcium 8.8 (8.4-10.2) mg/dL
--- NOTE | 2018-03-30 15:36 | Progress Note ---
Assessment and Plan Assessment and plan: Patient is a 62 yo man with a history of ICM with ICD, afib on Eliquis, CHF, EF 26% on 10/2016 stress test, CAD s/p AMI with cardiac stent, hypertension, Gout, GERD and dyslipidemia who I discharged on after his AICD firing due to Afib with RVR. He returns today with severe constant acute onset of SOB and coughing associated with chest tightness aggravated by coughing, breathing and movement. Patient states he has been coughing all night and he was unable to stop. Then he felt lightheaded from the coughing. Patient states he is very short of breath and wheezing which he had never experienced before. Patient states there is some mild moderated intermittent nonradiating chest discomfort as well. Patient's more short of breath with movement. Patient states that the chest pressure is 6 out of 10 in severity. * 2v CXR Impression: New focal airspace disease in the right lower lung and possible lingula. PA and lateral chest radiographic follow-up to resolution is recommended * wbc 11.5 * proBNP 2044 with negative Troponin T * negative D-Dimer -Aspiration Pneumonia RLL: Double cover with iv abx since he was just in the hospital, sent rapid FLU test negative, repeat 2v CXR negative -Acute on chronic systolic heart failure: Consult Cardiology, lasix given -Afib: continue Eliquis, continue Amiodarone, he was given script for Amiodarone 400mg bid x 3 days then 200mg bid -Bronchospasm possible from pna but bblocker changed from coreg to metoprolol -Hypertension: continue home regimen -DVT prophylaxis: Eliquis disposition: continue inpatient care, needs another day or two of iv abx, descalated abx to monotherapy History Interval history: Patient was seen and examined. Follow-up on current diagnosis of sob, still present but improving, he wants to go home but realizes SOB with only minimal activity. Overnight uneventful. Patient denies any nausea/vomiting or severe headaches. Imaging, nursing note, chart, labs and old chart reviewed. Discussed with patient. Hospitalist Physical - Physical exam Narrative exam: Gen: WDWN, NAD, Awake, Alert, Orientated x 3 HEENT: NCAT, EOMI, PERRL, OP Clear Neck: supple, no adenopathy, no thyromegaly, no JVD CVS/Heart: Regular bradycardia, normal S1S2, pulses present bilaterally Chest/Lungs: diminished bs bilateral, Symmetrical chest expansion, good air entry bilaterally GI/Abdomen: soft, NTND, good bowel sounds, no guarding or rebound /Bladder: no suprapubic tenderness, no CVA or paraspinal tenderness Extermity/Skin: no c/c/e, no obvious rash MSK: FROM x 4 Neuro: CN 2-12 grossly intact, no new focal deficits Psych: calm - Constitutional Vitals: Temp Pulse Resp BP Pulse Ox 98.2 F 66 20 140/80 95 03/29/18 23:43 03/30/18 14:00 03/30/18 10:00 03/30/18 09:47 03/30/18 11:33 General appearance: Present: no acute distress Results - Labs CBC & Chem 7: 03/30/18 05:23 03/30/18 05:23 Labs: Laboratory Last Values WBC 7.3 K/mm3 (4.5-11.0) 03/30/18 05:23 RBC 4.48 M/mm3 (3.65-5.03) 03/30/18 05:23 Hgb 13.2 gm/dl (11.8-15.2) 03/30/18 05:23 Hct 40.0 % (35.5-45.6) 03/30/18 05:23 MCV 89 fl (84-94) 03/30/18 05:23 MCH 30 pg (28-32) 03/30/18 05:23 MCHC 33 % (32-34) 03/30/18 05:23 RDW 14.7 % (13.2-15.2) 03/30/18 05:23 Plt Count 169 K/mm3 (140-440) 03/30/18 05:23 Lymph % (Auto) 9.5 % (13.4-35.0) L 03/29/18 04:36 [place] % (Auto) 5.5 % (0.0-7.3) 03/29/18 04:36 Eos % (Auto) 1.3 % (0.0-4.3) 03/29/18 04:36 Baso % (Auto) 1.5 % (0.0-1.8) 03/29/18 04:36 Lymph # 1.1 K/mm3 (1.2-5.4) L 03/29/18 04:36 [place] # 0.6 K/mm3 (0.0-0.8) 03/29/18 04:36 Eos # 0.2 K/mm3 (0.0-0.4) 03/29/18 04:36 Baso # 0.2 K/mm3 (0.0-0.1) H 03/29/18 04:36 Seg Neutrophils % 82.2 % (40.0-70.0) H 03/29/18 04:36 Seg Neutrophils # 9.4 K/mm3 (1.8-7.7) H 03/29/18 04:36 PT 13.4 Sec. (12.2-14.9) 03/29/18 04:36 INR 0.98 (0.87-1.13) 03/29/18 04:36 APTT 30.2 Sec. (24.2-36.6) 03/29/18 04:36 D-Dimer < 135 ng/mlDDU (0-234) 03/29/18 04:36 Sodium 145 mmol/L (137-145) 03/30/18 05:23 Potassium 3.9 mmol/L (3.6-5.0) 03/30/18 05:23 Chloride 106.6 mmol/L (98-107) 03/30/18 05:23 Carbon Dioxide 26 mmol/L (22-30) 03/30/18 05:23 Anion Gap 16 mmol/L 03/30/18 05:23 BUN 16 mg/dL (9-20) 03/30/18 05:23 Creatinine 1.5 mg/dL (0.8-1.5) 03/30/18 05:23 Estimated GFR 57 ml/min 03/30/18 05:23 BUN/Creatinine Ratio 11 % 03/30/18 05:23 Glucose 120 mg/dL (75-100) H 03/30/18 05:23 Calcium 8.8 mg/dL (8.4-10.2) 03/30/18 05:23 Magnesium 1.90 mg/dL (1.7-2.3) 03/30/18 05:23 Troponin T < 0.010 ng/mL (0.00-0.029) 03/29/18 07:19 NT-Pro-B Natriuret Pep 2045 pg/mL (0-900) H 03/29/18 04:36 Influenza A (Rapid) Negative (Negative) 03/29/18 15:13 Influenza B (Rapid) Negative (Negative) 03/29/18 15:13
[2018-03-31 07:02] LABS: Hematocrit 41.5 % (35.5-45.6); Hemoglobin 13.5 gm/dl (11.8-15.2); Mean Corpuscular HGB Conc 32 % (32-34); Mean Corpuscular Hemoglobin 29 pg (28-32); Mean Corpuscular Volume 90 fl (84-94); Platelet Count 204 K/mm3 (140-440); Red Blood Count 4.62 M/mm3 (3.65-5.03); Red Cell Distribution Width 15.1 % (13.2-15.2)
[2018-03-31 07:25] LABS: BUN/Creatinine Ratio 10; Blood Urea Nitrogen 14 mg/dL (9-20); Hemolysis Index 9
[2018-03-31] MEDS: TOPROL XL PO SCH (09:26)
[2018-03-31] MEDS: BABY ASPIRIN PO SCH (09:26)
[2018-03-31] MEDS: ENTRESTO 24 - 26 MG PO SCH (09:27)
[2018-03-31] MEDS: LASIX PO SCH (09:27)
[2018-03-31] MEDS: VITAMIN B-1 PO SCH (09:27)
[2018-03-31] MEDS: PEPCID PO SCH (09:27)
[2018-03-31] MEDS: LEVAQUIN 750MG/150ML 750 MG/150 ML BAG IV SCH (09:27)
[2018-03-31] MEDS: ELIQUIS PO SCH (09:31)
[2018-03-31] MEDS: CORDARONE PO SCH (09:33)
--- NOTE | 2018-03-31 12:32 | Progress Note ---
Assessment and Plan - Patient Problems (1) Pulmonary infiltrate Current Visit: Yes Status: Acute Plan to address problem: Patient on antibiotic therapy for presenting pneumonia. (2) Ischemic cardiomyopathy Current Visit: No Status: Acute Plan to address problem: Medical therapy for coronary artery disease, ischemic cardiomyopathy and chronic systolic left ventricular dysfunction. Subjective Date of service: 03/31/18 Interval history: Patient is comfortable, no cardiac complaints, ambulating in the hallway. Objective Vital Signs Temp Pulse Pulse Resp Resp BP BP 03/31/18 10:00 60 20 20 03/31/18 09:26 62 130/82 03/31/18 08:52 61 18 131/89 03/31/18 08:51 98.2 F 59 L 18 131/89 03/31/18 04:53 97.0 F L 54 L 20 115/74 03/31/18 00:38 98.0 F 61 20 133/86 03/30/18 22:00 70 03/30/18 20:53 03/30/18 19:32 99.3 F 59 L 18 127/92 03/30/18 18:20 97.9 F 58 L 16 128/86 03/30/18 14:00 66 03/30/18 13:14 64 20 107/88 Pulse Ox 03/31/18 10:00 03/31/18 09:26 03/31/18 08:52 98 03/31/18 08:51 98 03/31/18 04:53 98 03/31/18 00:38 97 03/30/18 22:00 03/30/18 20:53 96 03/30/18 19:32 97 03/30/18 18:20 98 03/30/18 14:00 03/30/18 13:14 97 - Physical Examination General: Appears Well, No Apparent Distress HEENT: Positive: PERRL Neck: Positive: neck supple Cardiac: Positive: Reg Rate and Rhythm Lungs: Positive: Decreased Breath Sounds Neuro: Positive: Grossly Intact Abdomen: Positive: Soft Skin: Positive: Clear Extremities: Absent: edema - Labs and Meds CBC 03/31/18 Range/Units 05:21 WBC 9.4 (4.5-11.0) K/mm3 RBC 4.62 (3.65-5.03) M/mm3 Hgb 13.5 (11.8-15.2) gm/dl Hct 41.5 (35.5-45.6) % Plt Count 204 (140-440) K/mm3 Comprehensive Metabolic Panel 03/31/18 Range/Units 05:21 Sodium 143 (137-145) mmol/L Potassium 3.9 (3.6-5.0) mmol/L Chloride 105.7 (98-107) mmol/L Carbon Dioxide 26 (22-30) mmol/L BUN 14 (9-20) mg/dL Creatinine 1.4 (0.8-1.5) mg/dL Glucose 100 (75-100) mg/dL Calcium 9.0 (8.4-10.2) mg/dL
[2018-03-31 12:40] VITALS: BP 124/75
--- NOTE | 2018-03-31 15:23 | Discharge Summary ---
Providers - Providers Date of Admission: 03/29/18 05:48 Attending physician: GISSELLE CRISTINA MD 03/29/18 07:16 Consult to Physician [CONS] Routine Comment: COMPLETED Consulting Provider: ANNA CARROLL Physician Instructions: Reason For Exam: heart failure, wheezing with change in bb Primary care physician: SAND CUTTER OPERATOR Hospitalization Condition: Stable Hospital course: Patient is a 62 yo man with a history of ICM with ICD, afib on Eliquis, CHF, EF 26% on 10/2016 stress test, CAD s/p AMI with cardiac stent, hypertension, Gout, GERD and dyslipidemia who I discharged on after his AICD firing due to Afib with RVR. He returns today with severe constant acute onset of SOB and coughing associated with chest tightness aggravated by coughing, breathing and movement. He was found to have right lower lobe pneumonia. He received antibiotics. He clinically improved. He was discharged on the course of oral antibiotics. While he was hospitalized he did receive IV diuresis for CHF exacerbation * 2v CXR Impression: New focal airspace disease in the right lower lung and possible lingula. PA and lateral chest radiographic follow-up to resolution is recommended * wbc 11.5 * proBNP 2045 with negative Troponin T * negative D-Dimer Diagnoses -Aspiration Pneumonia RLL: -Acute on chronic systolic heart failure: -Afib with hypercoagulable state -Hypertension: Disposition: DC-01 TO HOME OR SELFCARE Time spent for discharge: 33 minutes Core Measure Documentation - Palliative Care Palliative Care/ Comfort Measures: Not Applicable - Core Measures Any of the following diagnoses?: none Exam - Constitutional Vitals: Temp Pulse Resp BP Pulse Ox 98.2 F 52 L 18 124/75 97 03/31/18 12:39 03/31/18 12:38 03/31/18 12:38 03/31/18 12:38 03/31/18 12:38 General appearance: Present: no acute distress, well-nourished - EENT Eyes: Present: PERRL ENT: hearing intact, clear oral mucosa - Neck Neck: Present: supple, normal ROM - Respiratory Respiratory effort: normal Respiratory: bilateral: CTA - Cardiovascular Heart Sounds: Present: S1 & S2. Absent: rub, click - Extremities Extremities: pulses symmetrical, No edema Peripheral Pulses: within normal limits - Abdominal General gastrointestinal: Present: soft, non-tender, non-distended, normal bowel sounds Male genitourinary: Present: normal - Integumentary Integumentary: Present: clear, warm, dry - Musculoskeletal Musculoskeletal: gait normal, strength equal bilaterally - Psychiatric Psychiatric: appropriate mood/affect, intact judgment & insight - Neurologic Neurologic: CNII-XII intact, moves all extremities Plan Follow up with: PRIMARY CARE,MD [Primary Care Provider] - 7 Days Prescriptions: Furosemide [Lasix TAB] 20 mg PO QDAY #30 tablet levoFLOXacin [Levaquin TAB] 750 mg PO QDAY #5 tablet Thiamine [Vitamin B-1] 100 mg PO QDAY #30 tablet
[2018-04-01] MEDS ORDERED: CORDARONE PO SCH (10:00)
--- NOTE | 2018-04-01 16:27 | Event Note ---
Received a call from pharmacy at [facility]. About interaction between Levaquin and amiodarone. Therefore his antibiotic was changed to Augmentin 875 twice a day 5 days.
== END 2018-03-31 17:15 | disposition home or self-care (01) | DRG 177 ==
LOC: ED 04:08 → 4A 05:48
PROVIDERS: ADMIT Internal Medicine; ATTEND Internal Medicine
DX: J69.0 Pneumonitis due to inhalation of food and vomit (principal); I50.23 Acute on chronic systolic (congestive) heart failure; D68.59 Other primary thrombophilia; I25.5 Ischemic cardiomyopathy; I48.91 Unspecified atrial fibrillation; I25.10 Atherosclerotic heart disease of native coronary artery without angina pectoris; I11.0 Hypertensive heart disease with heart failure; M10.9 Gout, unspecified; K21.9 Gastro-esophageal reflux disease without esophagitis; J98.01 Acute bronchospasm; Z95.810 Presence of automatic (implantable) cardiac defibrillator; Z79.01 Long term (current) use of anticoagulants; I25.2 Old myocardial infarction; Z95.5 Presence of coronary angioplasty implant and graft; Z79.899 Other long term (current) drug therapy; Z90.49 Acquired absence of other specified parts of digestive tract; Z82.49 Family history of ischemic heart disease and other diseases of the circulatory system; Z87.891 Personal history of nicotine dependence; Z80.9 Family history of malignant neoplasm, unspecified; Z79.82 Long term (current) use of aspirin
CPT/HCPCS: 36415; 71046; 80048; 83735; 83880; 84484; 85025; 85027; 85379; 85610; 85730; 87040; 87400; 93005; 93010; 96365; 96375; G0378; A9270-GY; J1940; J1956; J2270; J2405; J2543

== ENCOUNTER 2018-07-15 02:59 | Inpatient (IN) | payer OTHER ==
[2018-07-15] MEDS ORDERED: ASPIRIN PO ONE (03:11)
--- NOTE | 2018-07-15 03:48 | XRay Report ---
PROCEDURE: XR CHEST 1V AP TECHNIQUE: Chest radiograph single view. HISTORY: Chest Pain COMPARISONS: June 25, 2018 . FINDINGS: Heart: The heart size is slightly pronounced but stable. There is a cardiac pacemaker with the batter y in the left chest wall. Mediastinum/Vessels: Normal. Lungs/Pleural space: Normal. Bony thorax: No acute osseous abnormality. Life support devices: None. IMPRESSION: No acute infiltrate or effusion. Mild stable cardiomegaly. This document is electronically signed by Hellen Delaney DO., July 15 2018 03:46:18 AM ET
[2018-07-15 04:01] LABS: Basophils % (Auto) 0.7 % (0.0-1.8); Eosinophils # (Auto) 0.1 K/mm3 (0.0-0.4); Eosinophils % (Auto) 1.6 % (0.0-4.3); Hematocrit 40.6 % (35.5-45.6); Hemoglobin 13.2 gm/dl (11.8-15.2); Lymphocytes # (Auto) 1.1 K/mm3 (1.2-5.4); Lymphocytes % (Auto) 16.7 % (13.4-35.0); Mean Corpuscular HGB Conc 33 % (32-34); Mean Corpuscular Volume 84 fl (84-94); Monocytes # (Auto) 0.6 K/mm3 (0.0-0.8); Monocytes % (Auto) 8.5 % (0.0-7.3); Platelet Count 257 K/mm3 (140-440); Red Blood Count 4.85 M/mm3 (3.65-5.03); Red Cell Distribution Width 15.6 % (13.2-15.2)
[2018-07-15 04:24] LABS: BUN/Creatinine Ratio 11; Blood Urea Nitrogen 11 mg/dL (9-20); Calcium 8.9 mg/dL (8.4-10.2); Hemolysis Index 9
[2018-07-15] MEDS ORDERED: CARDIZEM IV ONE (05:06)
--- NOTE | 2018-07-15 05:06 | Event Note ---
Date: 07/15/18 Old records reviewed. Set Staff Fitter: Dr. Jairo Sommers/next follow-up appointment 07/16/2018 This is a 62-year-old gentleman, recently diagnosed with presumed hyperthyroidism, currently on methimazole, recently discontinued from amiodarone by his private cherry dipper, history of paroxysmal A. fib, currently on anticoagulation, xarelto, hypertension, presumed ischemic cardiomyopathy, presenting with central chest pressure, shortness of breath. This has been present since 10:30 yesterday evening. It is intermittent. There is no vomiting. There is no diaphoresis. There is shortness of breath which is not exertional. The patient thinks he may have had a stress test recently but is not certain. He was recently admitted to this hospital for A. fib with RVR. He was seen by cardiology and medically optimized. He was counseled to avoid alcohol consumption, and to avoid stimulant ingestion. The patient does admit to consuming alcohol recreationally last night. In the emergency room appears comfortable, although found to be intermittently tachycardic, presumably in A. fib with RVR. EKG is pending at this time. Initial EKG shows a normal sinus rhythm, 82 bpm, normal axis, normal intervals, not consistent with ST elevation myocardial infarction. Not hypoxic at this time. Screening laboratory studies reviewed and appreciated. patient will be placed on the chest pain protocol pathway for acs risk stratification repeat ekg pending--> if a fib with rvr confirmed will initiate rate control--> repeat ekg shows afib w rvr, therefore will start IV diltiazem therapy Vital Signs 07/15/18 07/15/18 07/15/18 03:06 03:09 03:25 Temperature 98.1 F 98.1 F 98.0 F Pulse Rate 77 78 76 Respiratory 18 18 18 Rate Blood Pressure 140/95 140/95 135/61 O2 Sat by Pulse 97 97 99 Oximetry 07/15/18 07/15/18 04:28 04:46 Temperature Pulse Rate 131 H Respiratory 13 Rate Blood Pressure O2 Sat by Pulse 98 Oximetry Labs 07/15/18 07/15/18 03:34 03:34 WBC 6.6 RBC 4.85 Hgb 13.2 Hct 40.6 MCV 84 MCH 27 L MCHC 33 RDW 15.6 H Plt Count 257 Lymph % (Auto) 16.7 [place] % (Auto) 8.5 H Eos % (Auto) 1.6 Baso % (Auto) 0.7 Lymph # 1.1 L [place] # 0.6 Eos # 0.1 Baso # 0.0 Seg Neutrophils % 72.5 H Seg Neutrophils # 4.8 Sodium 144 Potassium 3.7 Chloride 109.7 H Carbon Dioxide 24 Anion Gap 14 BUN 11 Creatinine 1.0 Estimated GFR > 60 BUN/Creatinine Ratio 11 Glucose 101 H Calcium 8.9 Troponin T < 0.010
--- NOTE | 2018-07-15 06:18 | Emergency Department Report ---
ED Chest Pain HPI - General Chief Complaint: Chest Pain Stated Complaint: CHEST PAIN Time Seen by Provider: 07/15/18 06:05 Source: patient Mode of arrival: Ambulatory Limitations: No Limitations - History of Present Illness Initial Comments: Patient is 62 years old male with history of congestive heart failure, chronic atrial fibrillation and hypertension. Patient presented to the ER complaining of substernal chest pain since last night associated with palpitation and shortness of breath. Patient stated that symptoms started during rest. Patient denied any fever or chills. No nausea or vomiting. Patient found to have A. fib with RVR and a heart rate of 138. Patient given diltiazem 20 mg IV and started on diltiazem drip at 5 mg per hour. MD Complaint: chest pain -: Last night Onset: during rest Pain Location: substernal Pain Radiation: none Severity: moderate Severity scale (0 -10): 6 Quality: tightness Consistency: intermittent - Related Data Home Medications Medication Instructions Recorded Confirmed Last Taken Aspirin 81 mg PO QDAY 03/26/18 06/26/18 1 Day Ago ~07/14/18 Cetirizine HCl [Zyrtec] 10 mg PO DAILY 07/15/18 07/15/18 07/14/18 Oxymetazoline 0.05% [Afrin] 1 spray INTRANASAL BID PRN 07/15/18 07/15/18 07/14/18 Sacubitril/Valsartan [Entresto 24 24 - 26 tab PO DAILY 07/15/18 07/15/18 07/14/18 mg-26 mg (Nf)] methIMAzole [Methimazole] 10 mg PO BID 07/15/18 07/15/18 07/14/18 Previous Rx's Medication Instructions Recorded Last Taken Type Famotidine [Pepcid] 20 mg PO BID #60 tablet 02/27/15 07/14/18 Rx Apixaban [Eliquis] 5 mg PO Q12HR #60 tablet 06/18/16 07/14/18 Rx AtorvaSTATin [Lipitor] 40 mg PO QHS #30 tablet 06/18/16 07/14/18 Rx Metoprolol Xl [Metoprolol 100 mg PO QDAY #30 tablet 03/27/18 07/14/18 Rx SUCCINATE ER TAB] Thiamine [Vitamin B-1] 100 mg PO QDAY #30 tablet 03/31/18 07/14/18 Rx Allergies Allergy/AdvReac Type Severity Reaction Status Date / Time No Known Allergies Allergy Verified 06/25/18 21:32 Heart Score - HEART Score History: Moderately suspicious EKG: Non-specific Age: 45-65 Risk factors: > 3 risk factors or hx of atherosclerotic disease Troponin: < normal limit HEART Score: 5 - Critical Actions Critical Actions: 4-6 pts:12-16.6% risk of adverse cardiac event. Should be admitted ED Review of Systems ROS: Stated complaint: CHEST PAIN Other details as noted in HPI Comment: All other systems reviewed and negative Constitutional: denies: chills, fever Respiratory: shortness of breath. denies: cough, orthopnea, SOB with exertion, SOB at rest Cardiovascular: chest pain, palpitations Gastrointestinal: denies: abdominal pain, nausea, vomiting, diarrhea, constipation, hematemesis, melena, hematochezia Musculoskeletal: denies: back pain Neurological: denies: headache, weakness, numbness, paresthesias, confusion, abnormal gait ED Past Medical Hx - Past Medical History Previous Medical History?: Yes Hx Hypertension: Yes Hx Heart Attack/AMI: Yes (2014) Hx Congestive Heart Failure: Yes Additional medical history: gasritis. gout. high cholesterol. New Thyroid problem x 1 week - Surgical History Past Surgical History?: Yes Hx Coronary Stent: Yes (2014) Hx Internal Defibrillator: Yes Hx Appendectomy: Yes Additional Surgical History: Defibrillator September 2016 - Social History Smoking Status: Never Smoker Substance Use Type: None - Medications Home Medications: Home Medications Medication Instructions Recorded Confirmed Last Taken Type Famotidine [Pepcid] 20 mg PO BID #60 tablet 02/27/15 07/15/18 07/14/18 Rx Apixaban [Eliquis] 5 mg PO Q12HR #60 tablet 06/18/16 07/15/18 07/14/18 Rx AtorvaSTATin [Lipitor] 40 mg PO QHS #30 tablet 06/18/16 07/15/18 07/14/18 Rx Aspirin 81 mg PO QDAY 03/26/18 06/26/18 1 Day Ago History ~07/14/18 Metoprolol Xl [Metoprolol 100 mg PO QDAY #30 tablet 03/27/18 07/15/18 07/14/18 Rx SUCCINATE ER TAB] Thiamine [Vitamin B-1] 100 mg PO QDAY #30 tablet 03/31/18 07/15/18 07/14/18 Rx Cetirizine HCl [Zyrtec] 10 mg PO DAILY 07/15/18 07/15/18 07/14/18 History Oxymetazoline 0.05% [Afrin] 1 spray INTRANASAL BID PRN 07/15/18 07/15/18 07/14/18 History Sacubitril/Valsartan [Entresto 24 24 - 26 tab PO DAILY 07/15/18 07/15/18 07/14/18 History mg-26 mg (Nf)] methIMAzole [Methimazole] 10 mg PO BID 07/15/18 07/15/18 07/14/18 History ED Physical Exam - General Limitations: No Limitations General appearance: alert, in no apparent distress - Head Head exam: Present: atraumatic, normocephalic, normal inspection - Eye Eye exam: Present: normal appearance, PERRL - ENT ENT exam: Present: normal exam, normal orophraynx, mucous membranes moist - Neck Neck exam: Present: normal inspection, full ROM. Absent: tenderness, meningismus, lymphadenopathy, thyromegaly - Respiratory Respiratory exam: Present: normal lung sounds bilaterally - Cardiovascular Cardiovascular Exam: Present: tachycardia, irregular rhythm - GI/Abdominal GI/Abdominal exam: Present: soft, normal bowel sounds. Absent: distended, tenderness, guarding, rebound, rigid - Extremities Exam Extremities exam: Present: normal inspection, full ROM, normal capillary refill - Neurological Exam Neurological exam: Present: alert, oriented X3, CN II-XII intact - Skin Skin exam: Present: warm, intact, normal color ED Course Vital Signs 07/15/18 07/15/18 07/15/18 03:06 03:09 03:25 Temperature 98.1 F 98.1 F 98.0 F Pulse Rate 77 78 76 Respiratory 18 18 18 Rate Blood Pressure 140/95 140/95 135/61 Blood Pressure [Left] O2 Sat by Pulse 97 97 99 Oximetry 07/15/18 07/15/18 07/15/18 04:28 04:46 05:00 Temperature Pulse Rate 131 H 123 H Respiratory 13 17 Rate Blood Pressure 138/106 Blood Pressure [Left] O2 Sat by Pulse 98 97 Oximetry 07/15/18 07/15/18 07/15/18 05:16 05:30 05:46 Temperature Pulse Rate 79 106 H 79 Respiratory 23 11 L 21 Rate Blood Pressure 138/106 138/106 155/98 Blood Pressure [Left] O2 Sat by Pulse 98 98 91 Oximetry 07/15/18 07/15/18 07/15/18 06:00 06:16 06:23 Temperature Pulse Rate 79 80 131 H Respiratory 17 11 L Rate Blood Pressure 154/95 154/95 154/95 Blood Pressure [Left] O2 Sat by Pulse 98 97 Oximetry 07/15/18 07/15/18 07/15/18 06:30 06:46 07:23 Temperature 98.3 F Pulse Rate 79 133 H 75 Respiratory 13 23 19 Rate Blood Pressure 146/89 146/89 Blood Pressure 138/96 [Left] O2 Sat by Pulse 99 97 97 Oximetry 07/15/18 07:24 Temperature Pulse Rate 75 Respiratory Rate Blood Pressure 138/96 Blood Pressure [Left] O2 Sat by Pulse Oximetry MICHELL score - Michell Score Age > 65: (1) Yes Aspirin use within the Past 7 Days: (0) No 3 or more CAD Risk Factors: (1) Yes 2 or more Angina events in past 24 hrs: (1) Yes Known CAD with more than 50% Stenosis: (1) Yes Elevated Cardiac Markers: (1) Yes ST Deviation Greater than 0.5mm: (0) No MICHELL Score: 5 ED Medical Decision Making - Lab Data Result diagrams: 07/15/18 03:34 07/15/18 03:34 - EKG Data -: EKG Interpreted by Me Rate: tachycardia - EKG Data 07/15/18 06:18 Atrial fibrillation with RVR, heart rate of 123. - Medical Decision Making Patient is 62 years old male with history of congestive heart failure, chronic atrial fibrillation and hypertension. Patient presented to the ER complaining of substernal chest pain since last night associated with palpitation and shortness of breath. Patient stated that symptoms started during rest. Patient denied any fever or chills. No nausea or vomiting. Patient found to have A. fib with RVR and a heart rate of 138. Patient given diltiazem 20 mg IV and started on diltiazem drip at 5 mg per hour. I discussed the patient was Dr. Mahajan, attending radiologist, he stated that he will come to see the patient in the hospital. I discussed the patient was Dr. Briscoe, she agreed to admit the patient to medical service. Critical Care Time: Yes Critical care time in (mins) excluding proc time.: 30 Critical care attestation.: If time is entered above; I have spent that time in minutes in the direct care of this critically ill patient, excluding procedure time. ED Disposition Clinical Impression: Atrial fibrillation with RVR, Chest pain Disposition: OP ADMIT IP TO THIS HOSP Is pt being admited?: Yes Condition: Stable Instructions: Chest Pain (ED) Referrals: KATI ANN MD [Primary Care Provider] - 3-5 Days
[2018-07-15] MEDS ORDERED: CARDIZEM 100 MG in D5W 80 ML IV SCH (07:00)
--- NOTE | 2018-07-15 08:21 | History and Physical Report ---
History of Present Illness Date of examination: 07/15/18 Date of admission: 07/15/18 Chief complaint: Atypical chest pain and palpitations History of present illness: Very pleasant 62-year-old male patient with significant history of paroxysmal atrial fibrillation cardiomyopathy hypertension chronic anticoagulation presents to the emergency room with atypical chest pain and palpitations., Patient was recently admitted with A. fib with rapid ventricular rate, advised amiodarone and beta blockers, however during follow-up visit scale installer advised to hold amiodarone in view of hypothyroidism., Today in the emergency room noted to have A. fib with rapid ventricular rate, started on Cardizem drip Patient denies any nausea vomiting or abdominal pain, mild shortness of breath, first set of cardiac enzymes negative an EKG no acute ST-T changes, thyroid function tests consistent with hyperthyroidism Past History Past Medical History: atrial fib, CAD, heart failure, hyperthyroidism, hyperlipidemia Past Surgical History: appendectomy, PTCA, Other (ICD) Social history: lives with family, full code. denies: smoking, alcohol abuse, prescription drug abuse Family history: hypertension Medications and Allergies Allergies Allergy/AdvReac Type Severity Reaction Status Date / Time No Known Allergies Allergy Verified 06/25/18 21:32 Home Medications Medication Instructions Recorded Confirmed Last Taken Type Famotidine [Pepcid] 20 mg PO BID #60 tablet 02/27/15 07/15/18 07/14/18 Rx Apixaban [Eliquis] 5 mg PO Q12HR #60 tablet 06/18/16 07/15/18 07/14/18 Rx AtorvaSTATin [Lipitor] 40 mg PO QHS #30 tablet 06/18/16 07/15/18 07/14/18 Rx Aspirin 81 mg PO QDAY 03/26/18 07/15/18 Unknown History Metoprolol Xl [Metoprolol 100 mg PO QDAY #30 tablet 03/27/18 07/15/18 07/14/18 Rx SUCCINATE ER TAB] Thiamine [Vitamin B-1] 100 mg PO QDAY #30 tablet 03/31/18 07/15/18 07/14/18 Rx Cetirizine HCl [Zyrtec] 10 mg PO DAILY 07/15/18 07/15/18 07/14/18 History Oxymetazoline 0.05% [Afrin] 1 spray INTRANASAL BID PRN 07/15/18 07/15/1819 History Sacubitril/Valsartan [Entresto 24 24 - 26 tab PO DAILY 07/15/18 07/15/18 07/14/18 History mg-26 mg (Nf)] methIMAzole [Methimazole] 10 mg PO BID 07/15/18 07/15/18 07/14/18 History Active Meds: Active Medications Diltiazem HCl 100 mg/ Dextrose 100 mls @ 5 mls/hr IV DIRECT NARGIS; Protocol Last Admin: 07/15/18 07:24 Dose: 5 mg/hr, 5 mls/hr Documented by: Review of Systems Constitutional: no weight loss, no weight gain, no fever, no chills Ears, nose, mouth and throat: no nasal congestion, no nasal discharge Cardiovascular: chest pain, palpitations, no orthopnea, no shortness of breath Respiratory: no cough with sputum, no shortness of breath Gastrointestinal: no abdominal pain, no nausea, no vomiting Genitourinary Male: no dysuria, no hematuria Integumentary: no rash, no lesions Neurological: no weakness, no parathesias, no numbness Psychiatric: no anxiety, no depression Endocrine: no cold intolerance, no heat intolerance, no polydipsia, no polyuria Hematologic/Lymphatic: no easy bruising, no easy bleeding Allergic/Immunologic: no urticaria, no allergic rhinitis Exam - Constitutional Vitals: Temp Pulse Resp BP Pulse Ox 98.3 F 75 19 138/96 97 07/15/18 07:23 07/15/18 07:24 07/15/18 07:23 07/15/18 07:24 07/15/18 07:23 General appearance: Present: no acute distress, obese - EENT Eyes: Present: PERRL, EOM intact - Neck Neck: Present: supple, normal ROM - Respiratory Respiratory effort: normal Respiratory: bilateral: diminished, negative: rales, rhonchi, wheezing - Cardiovascular Rhythm: regular Heart Sounds: Present: S1 & S2 - Extremities Extremities: no ischemia, No edema - Abdominal General gastrointestinal: Present: soft, non-tender, non-distended, normal bowel sounds - Integumentary Integumentary: Present: clear, warm - Musculoskeletal Musculoskeletal: strength equal bilaterally - Psychiatric Psychiatric: appropriate mood/affect, cooperative - Neurologic Neurologic: moves all extremities Results - Labs CBC & Chem 7: 07/15/18 03:34 07/15/18 03:34 Labs: Abnormal lab results 07/15/18 07/15/18 07/15/18 Range/Units 03:34 03:34 05:21 MCH 27 L (28-32) pg RDW 15.6 H (13.2-15.2) % Banks % (Auto) 8.5 H (0.0-7.3) % Lymph # 1.1 L (1.2-5.4) K/mm3 Seg Neutrophils % 72.5 H (40.0-70.0) % Chloride 109.7 H (98-107) mmol/L Glucose 101 H (75-100) mg/dL TSH (0.270-4.200) mlU/mL Free T4 3.75 H (0.76-1.46) ng/dL 07/15/18 Range/Units 05:21 MCH (28-32) pg RDW (13.2-15.2) % Banks % (Auto) (0.0-7.3) % Lymph # (1.2-5.4) K/mm3 Seg Neutrophils % (40.0-70.0) % Chloride (98-107) mmol/L Glucose (75-100) mg/dL TSH 0.010 L (0.270-4.200) mlU/mL Free T4 (0.76-1.46) ng/dL Assessment and Plan --A. fib with rapid ventricular rate; on Cardizem drip During last admission patient was advised amiodarone and beta blockers The patient was asked to stop amiodarone by scale installer due to hyperthyroidism Advised to continue beta blockers, patient is scheduled to see scale installer tomorrow for adjustments of his ICD, Cardiology consult --History of hyperthyroidism; on methimazole Continue 10 mg by mouth twice a day --History of paroxysmal A. fib; beta blockers Chronic anticoagulation on eliquis --Status post AICD; stable --Ischemic cardiomyopathy; continue anti-failure medications --DVT prophylaxis; patient on eliquis --Obesity BMI 35; advised weight reduction and medically stable Follow cardiology evaluation and recommendations Possible discharge in 1-2 days stable
--- NOTE | 2018-07-15 09:25 | Consultation ---
History of Present Illness Consult date: 07/15/18 Consult reason: chest pain History of present illness: This is a 62-year-old gentleman, recently diagnosed with presumed hyperthyroidism, currently on methimazole, recently discontinued from amiodarone, history of paroxysmal A. fib, currently on anticoagulation with xarelto, hypertension, ischemic cardiomyopathy, and CAD s/p TN s/p PCI placement in LAD (per patient - no report found in the chart). The patient presented with central chest pressure, and shortness of breath. This has been present since 10:30 yesterday evening. It is intermittent. There is shortness of breath which is not exertional. He was recently admitted to this hospital for A. fib with RVR. . Past History Past Medical History: acute TN, atrial fib, CAD, heart failure, hyperthyroidism, hypertension, other (s/p ICD placement, CAD s/p TN s/p PCI) Past Surgical History: Other (s/p ICD placement) Social history: denies: smoking, alcohol abuse, IV drug use Family history: no significant family history Medications and Allergies Allergies Allergy/AdvReac Type Severity Reaction Status Date / Time No Known Allergies Allergy Verified 06/25/18 21:32 Home Medications Medication Instructions Recorded Confirmed Last Taken Type Famotidine [Pepcid] 20 mg PO BID #60 tablet 02/27/15 07/15/18 07/14/18 Rx Apixaban [Eliquis] 5 mg PO Q12HR #60 tablet 06/18/16 07/15/18 07/14/18 Rx AtorvaSTATin [Lipitor] 40 mg PO QHS #30 tablet 06/18/16 07/15/18 07/14/18 Rx Aspirin 81 mg PO QDAY 03/26/18 07/15/18 Unknown History Metoprolol Xl [Metoprolol 100 mg PO QDAY #30 tablet 03/27/18 07/15/18 07/14/18 Rx SUCCINATE ER TAB] Thiamine [Vitamin B-1] 100 mg PO QDAY #30 tablet 03/31/18 07/15/18 07/14/18 Rx Cetirizine HCl [Zyrtec] 10 mg PO DAILY 07/15/18 07/15/18 07/14/18 History Oxymetazoline 0.05% [Afrin] 1 spray INTRANASAL BID PRN 07/15/18 07/15/18 07/14/18 History Sacubitril/Valsartan [Entresto 24 24 - 26 tab PO DAILY 07/15/18 07/15/18 07/14/18 History mg-26 mg (Nf)] methIMAzole [Methimazole] 10 mg PO BID 07/15/18 07/15/18 07/14/18 History Active Meds: Active Medications Apixaban (Eliquis) 5 mg PO Q12HR NARGIS; Protocol Aspirin (Baby Aspirin) 81 mg PO QDAY NARGIS Atorvastatin Calcium (Lipitor) 40 mg PO QHS NARGIS Famotidine (Pepcid) 20 mg PO BID NARGIS Diltiazem HCl 100 mg/ Dextrose 100 mls @ 5 mls/hr IV DIRECT NARGIS; Protocol Last Admin: 07/15/18 07:24 Dose: 5 mg/hr, 5 mls/hr Documented by: Methimazole (Tapazole) 10 mg PO BID NARGIS Metoprolol Succinate (Toprol Xl) 100 mg PO QDAY NARGIS Thiamine HCl (Vitamin B-1) 100 mg PO QDAY NARGIS Review of Systems All systems: negative (pertinent positives in HPI) Physical Examination Vital Signs Temp Pulse Resp BP Pulse Ox 98.1 F 77 18 140/95 97 07/15/18 03:06 07/15/18 03:06 07/15/18 03:06 07/15/18 03:06 07/15/18 03:06 General appearance: no acute distress HEENT: Positive: EOMI Neck: Positive: neck supple, trachea midline Cardiac: Positive: Reg Rate and Rhythm, S1/S2 Lungs: Positive: Normal Exam Neuro: Positive: Grossly Intact Abdomen: Positive: Soft Extremities: Absent: edema Results 07/15/18 03:34 07/15/18 03:34 CBC 07/15/18 Range/Units 03:34 WBC 6.6 (4.5-11.0) K/mm3 RBC 4.85 (3.65-5.03) M/mm3 Hgb 13.2 (11.8-15.2) gm/dl Hct 40.6 (35.5-45.6) % Plt Count 257 (140-440) K/mm3 Lymph # 1.1 L (1.2-5.4) K/mm3 [place] # 0.6 (0.0-0.8) K/mm3 Eos # 0.1 (0.0-0.4) K/mm3 Baso # 0.0 (0.0-0.1) K/mm3 Comprehensive Metabolic Panel 07/15/18 Range/Units 03:34 Sodium 144 (137-145) mmol/L Potassium 3.7 (3.6-5.0) mmol/L Chloride 109.7 H (98-107) mmol/L Carbon Dioxide 24 (22-30) mmol/L BUN 11 (9-20) mg/dL Creatinine 1.0 (0.8-1.5) mg/dL Glucose 101 H (75-100) mg/dL Calcium 8.9 (8.4-10.2) mg/dL EKG interpretations - Telemetry EKG Rhythm: Sinus Rhythm Assessment and Plan unstable angina CAD s/p TN s/p PCI of LAD ischemic cardiomyopathy HTN paroxysmal atrial fibrillation continue medical therapy with BB, ASA, and statin Maximize medical therapy as blood pressure allows Rate control strategy - patient recently off amiodarone due to hyperthyroidism. CHADSVASc = at least 3. hold anticoagulation for LHC. plan for C
[2018-07-15] MEDS: VITAMIN B-1 PO SCH (09:31)
[2018-07-15] MEDS: PEPCID PO SCH ×2 (09:31→21:55)
[2018-07-15] MEDS: ENTRESTO 24 - 26 MG PO SCH ×2 (09:31→21:55)
[2018-07-15] MEDS: TAPAZOLE PO SCH ×2 (09:31→21:55)
[2018-07-15] MEDS: TOPROL XL PO SCH (09:31)
[2018-07-15] MEDS ORDERED: CORDARONE PO SCH (10:00)
[2018-07-15] MEDS ORDERED: VALSARTAN PO SCH (10:00)
[2018-07-15] MEDS ORDERED: SACUBITRIL PO SCH (10:00)
[2018-07-15] MEDS ORDERED: METHIMAZOLE 10 MG PO SCH (10:00)
[2018-07-15] MEDS ORDERED: ELIQUIS PO SCH (10:00)
[2018-07-15] MEDS ORDERED: ALDACTONE PO ONE (10:30)
[2018-07-15 18:55] LABS: Creatine Kinase MB 1.9 ng/mL (0.0-4.0)
[2018-07-16 05:44] LABS: INR 1.11 (0.87-1.13)
[2018-07-16 05:45] LABS: Partial Thromboplastin Time 25.2 Sec. (24.2-36.6)
[2018-07-16] MEDS: PEPCID PO SCH ×2 (09:52→21:22)
[2018-07-16] MEDS: TAPAZOLE PO SCH ×2 (09:52→21:22)
[2018-07-16] MEDS: BABY ASPIRIN PO SCH (09:52)
[2018-07-16] MEDS: VITAMIN B-1 PO SCH (09:52)
[2018-07-16] MEDS: TOPROL XL PO SCH (09:52)
[2018-07-16] MEDS: ENTRESTO 24 - 26 MG PO SCH ×2 (09:53→21:22)
--- NOTE | 2018-07-16 11:16 | Progress Note ---
Assessment and Plan Paroxysmal atrial fibrillation on oral anticoagulation with Rosalva as an outpatient. patient recently off amiodarone due to hyperthyroidism Hx of dilated ischemic cardiomyopathy Cardiac defibrillator in situ Hyperthyroidism Hx of CAD [facility] 04/2016: patent paroximal LAD stent, EF 25-30%. Subjective Date of service: 07/16/18 Interval history: Complains of palpitations on exertion. Objective Vital Signs Temp Pulse Pulse Pulse Pulse Resp BP 07/16/18 10:57 98.4 F 07/16/18 10:54 127 H 18 131/86 07/16/18 10:53 98.4 F 07/16/18 09:52 124 H 136/86 07/16/18 03:57 98.0 F 20 167/91 07/16/18 03:00 70 07/16/18 00:13 98.1 F 70 20 137/86 07/15/18 23:36 73 73 73 18 07/15/18 19:36 67 07/15/18 19:29 98.3 F 67 18 135/78 07/15/18 17:11 70 157/90 07/15/18 13:07 97.9 F 69 18 133/80 07/15/18 13:02 113 H 154/99 07/15/18 11:36 122 H 113 H 113 H 113 H 18 Pulse Ox 07/16/18 10:57 07/16/18 10:54 97 07/16/18 10:53 07/16/18 09:52 07/16/18 03:57 07/16/18 03:00 07/16/18 00:13 97 07/15/18 23:36 99 07/15/18 19:36 07/15/18 19:29 97 07/15/18 17:11 96 07/15/18 13:07 97 07/15/18 13:02 07/15/18 11:36 99 - Physical Examination General: No Apparent Distress HEENT: Positive: EOMI Neck: Positive: trachea midline Cardiac: Positive: Reg Rate and Rhythm Lungs: Positive: Decreased Breath Sounds Neuro: Positive: Grossly Intact Extremities: Absent: edema - Labs and Meds Cardiac Enzymes 07/15/18 07/15/18 Range/Units 12:22 18:15 CK-MB (CK-2) 2.0 1.9 (0.0-4.0) ng/mL Coagulation 07/16/18 Range/Units 04:23 PT 15.0 H (12.2-14.9) Sec. INR 1.11 (0.87-1.13) APTT 25.2 (24.2-36.6) Sec.
[2018-07-16] MEDS: BETAPACE PO SCH ×2 (17:07→21:22)
[2018-07-16] MEDS: ELIQUIS PO SCH ×2 (17:08→21:22)
--- NOTE | 2018-07-16 18:48 | Progress Note ---
Assessment and Plan Assessment and plan: --A. 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] on [id number] mg by mouth twice a day --Status post AICD; stable --Ischemic cardiomyopathy; 25% continue anti-failure medications --Chronic systolic congestive heart failure; EF 25% Continue diuretics, beta blockers, surinder inhibitors, input and output monitoring Cardiology following --DVT prophylaxis; patient on eliquis --Obesity BMI 35; advised weight reduction and medically stable Follow cardiology evaluation and recommendations Possible discharge in 1-2 days stable Plan of care reviewed with the patient, family members at the bedside And his nurse History Interval history: Patient seen and examined medical records reviewed No new events reported by the nursing staff Patient remains intermittent A. fib with rapid ventricular rate Cardiology following The patient is alert awake oriented 3 Not in acute distress Vital signs noted Hospitalist Physical - Constitutional Vitals: Temp Pulse Resp BP Pulse Ox 98.2 F 119 H 18 143/92 98 07/16/18 17:02 07/16/18 17:07 07/16/18 17:01 07/16/18 17:07 07/16/18 17:01 General appearance: Present: no acute distress, well-nourished, obese - EENT Eyes: Present: PERRL, EOM intact - Neck Neck: Present: supple, normal ROM - Respiratory Respiratory effort: normal Respiratory: bilateral: diminished, negative: rales, rhonchi, wheezing - Cardiovascular Rhythm: irregularly irregular Heart Sounds: Present: S1 & S2 - Extremities Extremities: no ischemia, No edema - Abdominal General gastrointestinal: soft, non-tender, non-distended, normal bowel sounds - Integumentary Integumentary: Present: clear, warm - Psychiatric Psychiatric: appropriate mood/affect, cooperative - Neurologic Neurologic: CNII-XII intact, moves all extremities Results - Labs CBC & Chem 7: 07/15/18 03:34 07/15/18 03:34 Labs: Laboratory Last Values WBC 6.6 K/mm3 (4.5-11.0) 07/15/18 03:34 RBC 4.85 M/mm3 (3.65-5.03) 07/15/18 03:34 Hgb 13.2 gm/dl (11.8-15.2) 07/15/18 03:34 Hct 40.6 % (35.5-45.6) 07/15/18 03:34 MCV 84 fl (84-94) 07/15/18 03:34 MCH 27 pg (28-32) L 07/15/18 03:34 MCHC 33 % (32-34) 07/15/18 03:34 RDW 15.6 % (13.2-15.2) H 07/15/18 03:34 Plt Count 257 K/mm3 (140-440) 07/15/18 03:34 Lymph % (Auto) 16.7 % (13.4-35.0) 07/15/18 03:34 [place] % (Auto) 8.5 % (0.0-7.3) H 07/15/18 03:34 Eos % (Auto) 1.6 % (0.0-4.3) 07/15/18 03:34 Baso % (Auto) 0.7 % (0.0-1.8) 07/15/18 03:34 Lymph # 1.1 K/mm3 (1.2-5.4) L 07/15/18 03:34 [place] # 0.6 K/mm3 (0.0-0.8) 07/15/18 03:34 Eos # 0.1 K/mm3 (0.0-0.4) 07/15/18 03:34 Baso # 0.0 K/mm3 (0.0-0.1) 07/15/18 03:34 Seg Neutrophils % 72.5 % (40.0-70.0) H 07/15/18 03:34 Seg Neutrophils # 4.8 K/mm3 (1.8-7.7) 07/15/18 03:34 PT 15.0 Sec. (12.2-14.9) H 07/16/18 04:23 INR 1.11 (0.87-1.13) 07/16/18 04:23 APTT 25.2 Sec. (24.2-36.6) 07/16/18 04:23 Sodium 144 mmol/L (137-145) 07/15/18 03:34 Potassium 3.7 mmol/L (3.6-5.0) 07/15/18 03:34 Chloride 109.7 mmol/L (98-107) H 07/15/18 03:34 Carbon Dioxide 24 mmol/L (22-30) 07/15/18 03:34 Anion Gap 14 mmol/L 07/15/18 03:34 BUN 11 mg/dL (9-20) 07/15/18 03:34 Creatinine 1.0 mg/dL (0.8-1.5) 07/15/18 03:34 Estimated GFR > 60 ml/min 07/15/18 03:34 BUN/Creatinine Ratio 11 % 07/15/18 03:34 Glucose 101 mg/dL (75-100) H 07/15/18 03:34 POC Glucose 110 (70-105) H 07/16/18 06:04 Calcium 8.9 mg/dL (8.4-10.2) 07/15/18 03:34 Total Creatine Kinase < 7 units/L (55-170) L 07/15/18 18:15 CK-MB (CK-2) 1.9 ng/mL (0.0-4.0) 07/15/18 18:15 CK-MB (CK-2) Rel Index 0.0 (0-4) 07/15/18 18:15 Troponin T < 0.010 ng/mL (0.00-0.029) 07/15/18 18:15 TSH 0.010 mlU/mL (0.270-4.200) L 07/15/18 05:21 Free T4 3.75 ng/dL (0.76-1.46) H 07/15/18 05:21 Active Medications - Current Medications Current Medications: Generic Name Dose Route Start Last Admin Trade Name Freq PRN Reason Stop Dose Admin Apixaban 5 mg 07/16/18 16:00 07/16/18 17:08 Eliquis PO 5 mg Q12HR NARGIS Administration Protocol Aspirin 81 mg 07/16/18 10:00 07/16/18 09:52 Baby Aspirin PO 81 mg QDAY NARGIS Administration Atorvastatin Calcium 40 mg 07/15/18 22:00 07/15/18 21:55 Lipitor PO 40 mg QHS NARGIS Administration Famotidine 20 mg 07/15/18 10:00 07/16/18 09:52 Pepcid PO 20 mg BID NARGIS Administration Methimazole 10 mg 07/15/18 10:00 07/16/18 09:52 Tapazole PO 10 mg BID NARGIS Administration Metoprolol Succinate 100 mg 07/15/18 10:00 07/16/18 09:52 Toprol Xl PO 100 mg QDAY NARGIS Administration Sotalol HCl 80 mg 07/16/18 16:00 07/16/18 17:07 Betapace PO 80 mg Q12HR NARGIS Administration Thiamine HCl 100 mg 07/15/18 10:00 07/16/18 09:52 Vitamin B-1 PO 100 mg QDAY NARGIS Administration
[2018-07-17 06:20] LABS: Basophils % (Auto) 0.5 % (0.0-1.8); Eosinophils # (Auto) 0.2 K/mm3 (0.0-0.4); Eosinophils % (Auto) 1.8 % (0.0-4.3); Hematocrit 41.6 % (35.5-45.6); Hemoglobin 13.6 gm/dl (11.8-15.2); Lymphocytes # (Auto) 1.6 K/mm3 (1.2-5.4); Lymphocytes % (Auto) 16.9 % (13.4-35.0); Mean Corpuscular HGB Conc 33 % (32-34); Mean Corpuscular Volume 83 fl (84-94); Monocytes # (Auto) 1.1 K/mm3 (0.0-0.8); Monocytes % (Auto) 11.4 % (0.0-7.3); Platelet Count 280 K/mm3 (140-440); Red Blood Count 5.02 M/mm3 (3.65-5.03); Red Cell Distribution Width 15.5 % (13.2-15.2)
[2018-07-17] MEDS ORDERED: LEXISCAN IV ONE ×2 (09:16→09:17)
[2018-07-17] MEDS: ELIQUIS PO SCH (10:42)
[2018-07-17] MEDS: BABY ASPIRIN PO SCH (10:42)
[2018-07-17] MEDS: TAPAZOLE PO SCH (10:43)
[2018-07-17] MEDS: TOPROL XL PO SCH (10:43)
[2018-07-17] MEDS: VITAMIN B-1 PO SCH (10:43)
[2018-07-17] MEDS: PEPCID PO SCH (10:43)
[2018-07-17] MEDS: BETAPACE PO SCH (11:08)
[2018-07-17] MEDS: ENTRESTO 24 - 26 MG PO SCH (11:09)
--- NOTE | 2018-07-17 11:40 | Discharge Summary ---
Providers - Providers Date of Admission: 07/15/18 09:58 Date of discharge: 07/17/18 Attending physician: DEBO CHAPMAN 07/15/18 08:08 Consult to Physician [CONS] Stat Comment: Dr. Elmore spoke to Dr. Daniel @ 08:07- [facility] Consulting Provider: TANIKA DANIEL Physician Instructions: Reason For Exam: atrial fibrillation with RVR 07/15/18 09:24 Consult to Cardiology [CONS] Routine Consulting Provider: TANIKA DANIEL Reason For Exam: chest pain [facility] Reason for admission: chest pain Condition: Stable Pertinent studies: CXR Exercise Stress test Hospital course: Brief History: 62-year-old male patient with significant history of paroxysmal atrial fibrillation cardiomyopathy hypertension on chronic anticoagulation presents to the emergency room with atypical chest pain and palpitations. Patient was recently admitted with A. fib with rapid ventricular rate, advised amiodarone and beta blockers, however during follow-up visit bb shot packer advised to hold amiodarone in view of hyperthyroidism. When he came in to the emergency room noted to have A. fib with rapid ventricular rate, started on Cardizem drip. Patient denied any nausea vomiting or abdominal pain, mild shortness of breath, first set of cardiac enzymes negative an EKG no acute ST-T changes, thyroid function tests consistent with hyperthyroidism. Patient was admitted to the hospital for further management. Discharge diagnosis and managment: --A. fib with rapid ventricular rate; During last admission patient was advised amiodarone and beta blockers The patient was asked to stop amiodarone by bb shot packer due to hyperthyroidism Initially placed on cardizem drip following admission Advised to continue beta blockers, cardiology adjusting the medications - started on sotalol Lexiscan thallium stress test shows a fixed anterior defect with no yaakov-infarct ischemia. Medical therapy is recommended for coronary artery disease and ischemic cardiomyopathy. Will continue Chronic anticoagulation with Eliquis Of note, he has been no further atrial tachyarrhythmias since starting sotalol. 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] Will continue [id number] mg by mouth twice a day --Status post AICD; stable --Ischemic cardiomyopathy; EF 25%: will continue anti-failure medications and cardiology f/u outpt --Chronic systolic congestive heart failure; EF 19% Continue diuretics, beta blockers, surinder inhibitors, input and output monitoring Cardiology following --DVT prophylaxis; patient on eliquis --Obesity BMI 35; advised weight reduction and medically stable Hospitalist Physical General appearance: Present: no acute distress, well-nourished, obese - EENT Eyes: Present: PERRL, EOM intact - Neck Neck: Present: supple, normal ROM - Respiratory Respiratory effort: normal Respiratory: bilateral: diminished, negative: rales, rhonchi, wheezing - Cardiovascular Rhythm: irregularly irregular Heart Sounds: Present: S1 & S2 - Extremities Extremities: no ischemia, No edema - Abdominal General gastrointestinal: soft, non-tender, non-distended, normal bowel sounds - Integumentary Integumentary: Present: clear, warm - Psychiatric Psychiatric: appropriate mood/affect, cooperative - Neurologic Neurologic: CNII-XII intact, moves all extremities Disposition: -01 TO HOME OR SELFCARE Time spent for discharge: 34 minutes Core Measure Documentation - Palliative Care Palliative Care/ Comfort Measures: Not Applicable - Core Measures Any of the following diagnoses?: history only Exam - Constitutional Vitals: Temp Pulse Resp BP Pulse Ox 97.8 F 65 20 125/76 98 07/17/18 11:31 07/17/18 11:31 07/17/18 11:31 07/17/18 11:31 07/17/18 11:31 Plan Activity: advance as tolerated Weight Bearing Status: Weight Bear as Tolerated Diet: low cholesterol, low salt Additional Instructions: Repeat TSH/T4 in 4-6 weeks Follow up with: KATI ANN MD [Primary Care Provider] - 3-5 Days ANURADHA YOU MD [Staff Physician] - 7 Days Prescriptions: Sotalol [Betapace] 80 mg PO Q12HR #30 tablet
--- NOTE | 2018-07-17 12:15 | Progress Note ---
Assessment and Plan - Patient Problems (1) Paroxysmal atrial fibrillation Current Visit: Yes Status: Acute Plan to address problem: Continue sotalol and metoprolol, and oral anticoagulation. Patient is stable for cardiac discharge on medical therapy. (2) Ischemic dilated cardiomyopathy Current Visit: Yes Status: Acute Plan to address problem: Lexiscan thallium stress test shows a fixed anterior defect with no yaakov-infarct ischemia. Medical therapy is recommended for coronary artery disease and ischemic cardiomyopathy. Subjective Date of service: 07/17/18 Interval history: Patient underwent a Lexiscan thallium stress test, findings of his severe dilated cardiomyopathy, left ventricular ejection fraction currently of 19%. Perfusion images show a large fixed anterior defect from old anterior myocardial infarction, with no significant reversible ischemia. Of note, he has been no further atrial tachyarrhythmias since starting sotalol. Objective Vital Signs Temp Pulse Pulse Resp BP BP Pulse Ox 07/17/18 11:31 97.8 F 65 20 125/76 98 07/17/18 11:00 118 H 18 98 07/17/18 09:37 126/80 07/17/18 09:36 134/83 07/17/18 09:35 136/85 07/17/18 09:34 133/84 07/17/18 09:33 137/73 07/17/18 09:11 136/96 07/17/18 07:50 98.6 F 67 20 135/90 95 07/17/18 04:03 97.8 F 113 H 12 124/81 97 07/16/18 23:05 98.4 F 60 12 128/75 98 07/16/18 20:34 98.4 F 62 12 122/72 97 07/16/18 19:00 66 07/16/18 17:07 119 H 143/92 07/16/18 17:02 98.2 F 07/16/18 17:01 119 H 18 143/92 98 - Physical Examination General: No Apparent Distress HEENT: Positive: EOMI Neck: Positive: trachea midline Cardiac: Positive: Reg Rate and Rhythm Lungs: Positive: Decreased Breath Sounds Neuro: Positive: Grossly Intact Abdomen: Positive: Soft Skin: Positive: Clear Extremities: Absent: edema - Labs and Meds CBC 07/17/18 Range/Units 05:15 WBC 9.4 (4.5-11.0) K/mm3 RBC 5.02 (3.65-5.03) M/mm3 Hgb 13.6 (11.8-15.2) gm/dl Hct 41.6 (35.5-45.6) % Plt Count 280 (140-440) K/mm3 Lymph # 1.6 (1.2-5.4) K/mm3 [place] # 1.1 H (0.0-0.8) K/mm3 Eos # 0.2 (0.0-0.4) K/mm3 Baso # 0.0 (0.0-0.1) K/mm3
[2018-07-17 18:05] VITALS: BP 125/76
--- NOTE | 2018-07-17 21:48 | Treadmill Report ---
THALLIUM STRESS TEST LEFT VENTRICLE: Left ventricle is severely dilated. Perfusion study demonstrates a large fixed defect in the distal anterior wall and apex. On the resting study, there is no reversibility. Gated analysis demonstrates severe left ventricular systolic dysfunction with ejection fraction 19%. CONCLUSION: Evidence of a severe dilated cardiomyopathy, previous anterior infarct, no significant reversible ischemia demonstrated. Clinical correlation is recommended. JOB# [id number] CA/NTS
== END 2018-07-17 17:25 | disposition home or self-care (01) | DRG 309 ==
LOC: ED 02:59 → 4A 09:58
PROVIDERS: ADMIT Internal Medicine; ATTEND Internal Medicine
DX: I48.0 Paroxysmal atrial fibrillation (principal); I50.22 Chronic systolic (congestive) heart failure; I25.110 Atherosclerotic heart disease of native coronary artery with unstable angina pectoris; I42.0 Dilated cardiomyopathy; I25.5 Ischemic cardiomyopathy; E05.90 Thyrotoxicosis, unspecified without thyrotoxic crisis or storm; E66.9 Obesity, unspecified; I11.0 Hypertensive heart disease with heart failure; M10.9 Gout, unspecified; Z79.01 Long term (current) use of anticoagulants; Z95.810 Presence of automatic (implantable) cardiac defibrillator; Z68.34 Body mass index [BMI] 34.0-34.9, adult; Z71.3 Dietary counseling and surveillance; Z95.5 Presence of coronary angioplasty implant and graft; Z90.49 Acquired absence of other specified parts of digestive tract; Z82.49 Family history of ischemic heart disease and other diseases of the circulatory system; Z79.899 Other long term (current) drug therapy; Z79.82 Long term (current) use of aspirin; I25.2 Old myocardial infarction
CPT/HCPCS: 36415; 71045; 78452; 80048; 82550; 82553; 82962; 83735; 84100; 84439; 84443; 84484; 85025; 85610; 85730; 93005; 93010; 93017; 96374; 99291; G0378; A9270-GY; A9502; J2785

== ENCOUNTER 2018-11-22 13:38 | Inpatient (IN) | payer OTHER ==
--- NOTE | 2018-11-22 13:55 | Event Note ---
ED Screening Note ED Screening Note: 3-4 days ago put on medication for gout last night began having left sided CP +SOB no N/V +generalized weakness/lightheaded PMHx AR, has a defibrillator, HTN, HLD pt he has stents aflutter on EKG, will send to MAIN ED for further eval This initial assessment/diagnostic orders/clinical plan/treatment(s) is/are subject to change based on patients health status, clinical progression and re- assessment by fellow clinical providers in the ED. Further treatment and workup at subsequent clinical providers discretion. Patient/guardian urged not to elope from the ED as their condition may be serious if not clinically assessed and managed. Initial orders include: CP protocol
--- NOTE | 2018-11-22 14:31 | XRay Report ---
CHEST 2 VIEWS INDICATION: Chest pain. COMPARISON: 07/15/2018 FINDINGS: Support devices: Single lead cardiac pacemaker is in position. Heart: Mild cardiomegaly. Lungs/pleura: No acute air space or interstitial disease. No pneumothorax. Additional findings: None. IMPRESSION: Mild cardiomegaly. Lungs clear. Signer Name: Jase Mcgrath Jr, MD Signed: 11/22/2018 2:27 PM Workstation Name: [id number]
[2018-11-22 14:36] LABS: Basophils % (Auto) 0.2 % (0.0-1.8); Eosinophils % (Auto) 0.3 % (0.0-4.3); Hematocrit 44.8 % (35.5-45.6); Hemoglobin 14.1 gm/dl (11.8-15.2); Lymphocytes # (Auto) 2.4 K/mm3 (1.2-5.4); Mean Corpuscular HGB Conc 32 % (32-34); Mean Corpuscular Volume 82 fl (84-94); Monocytes # (Auto) 1.3 K/mm3 (0.0-0.8); Monocytes % (Auto) 8.1 % (0.0-7.3); Platelet Count 356 K/mm3 (140-440); Red Blood Count 5.49 M/mm3 (3.65-5.03); Red Cell Distribution Width 18.5 % (13.2-15.2)
[2018-11-22 14:46] LABS: INR 1.18 (0.87-1.13)
[2018-11-22 14:55] LABS: Alanine Aminotransferase 14 units/L (7-56); Albumin 3.9 g/dL (3.9-5); BUN/Creatinine Ratio 17; Blood Urea Nitrogen 27 mg/dL (9-20); Hemolysis Index 13
--- NOTE | 2018-11-22 16:29 | Emergency Department Report ---
ED Chest Pain HPI - General Chief Complaint: Chest Pain Stated Complaint: CHEST PAIN Time Seen by Provider: 11/22/18 16:12 Source: patient Mode of arrival: Ambulatory Limitations: No Limitations - History of Present Illness Initial Comments: Patient is a 63-year-old male that presents to emergency with complaints of chest pain and shortness of breath, dizziness and fatigue and weakness. Patient states his symptoms started yesterday. Patient states he felt like he was going to pass out. Patient states his symptoms are better with rest and worse with exertion. Patient states he's had dyspnea on exertion. Patient states his chest pain is 6 out of 10. Patient states chest pain radiating to his neck and left shoulder. MD Complaint: chest pain -: Sudden Onset: during rest Pain Location: substernal, left chest Pain Radiation: LUE, neck Severity: moderate, severe Severity scale (0 -10): 6 Quality: heaviness, sharp Consistency: constant Improves With: rest Worsens With: exertion re: dyspnea. denies: nausea, vomting, diaphoresis, sense of impending doom Other Symptoms: denies: cough, fever, syncope, rash, acid taste in mouth, leg swelling, palpitations, burping Treatments Prior to Arrival: none Aspirin use within the Past 7 Days: (1) Yes - Related Data On Oral Contraceptives: No Home Medications Medication Instructions Recorded Confirmed Last Taken Aspirin 81 mg PO QDAY 03/26/18 07/15/18 Unknown Cetirizine HCl [Zyrtec 10mg tab] 10 mg PO DAILY 07/15/18 07/15/18 07/14/18 Oxymetazoline 0.05% [Vicks Sinex] 1 spray INTRANASAL BID PRN 07/15/18 07/15/18 07/14/18 Sacubitril/Valsartan [Entresto 24 24 - 26 tab PO DAILY 07/15/18 07/15/18 07/14/18 mg-26 mg (Nf)] methIMAzole [Methimazole] 10 mg PO BID 07/15/18 07/15/18 07/14/18 Previous Rx's Medication Instructions Recorded Last Taken Type Famotidine [Pepcid] 20 mg PO BID #60 tablet 02/27/15 07/14/18 Rx Apixaban [Eliquis] 5 mg PO Q12HR #60 tablet 06/18/16 07/14/18 Rx AtorvaSTATin [Lipitor] 40 mg PO QHS #30 tablet 06/18/16 07/14/18 Rx Metoprolol Xl [Metoprolol 100 mg PO QDAY #30 tablet 03/27/18 07/14/18 Rx SUCCINATE ER TAB] Thiamine [Vitamin B-1] 100 mg PO QDAY #30 tablet 03/31/18 07/14/18 Rx Sotalol [Betapace] 80 mg PO Q12HR #30 tablet 07/17/18 Unknown Rx Allergies Allergy/AdvReac Type Severity Reaction Status Date / Time No Known Allergies Allergy Verified 11/22/18 13:38 Heart Score - HEART Score History: Highly suspicious EKG: Non-specific Age: 45-65 Risk factors: > 3 risk factors or hx of atherosclerotic disease Troponin: < normal limit HEART Score: 6 ED Review of Systems ROS: Stated complaint: CHEST PAIN Other details as noted in HPI Constitutional: malaise, weakness. denies: chills, fever Eyes: denies: eye pain, eye discharge, vision change ENT: denies: ear pain, throat pain Respiratory: shortness of breath, SOB with exertion. denies: cough, wheezing Cardiovascular: chest pain, dyspnea on exertion. denies: palpitations Endocrine: no symptoms reported Gastrointestinal: denies: abdominal pain, nausea, diarrhea Genitourinary: denies: urgency, dysuria Musculoskeletal: denies: back pain, joint swelling, arthralgia Skin: denies: rash, lesions Neurological: weakness. denies: headache, paresthesias Psychiatric: denies: anxiety, depression Hematological/Lymphatic: denies: easy bleeding, easy bruising ED Past Medical Hx - Past Medical History Previous Medical History?: Yes Hx Hypertension: Yes Hx Heart Attack/AMI: Yes (2014) Hx Congestive Heart Failure: Yes Additional medical history: gasritis. gout. high cholesterol. New Thyroid problem x 1 week - Surgical History Hx Coronary Stent: Yes (2014) Hx Internal Defibrillator: Yes Hx Appendectomy: Yes Additional Surgical History: Defibrillator September 2016 - Family History Family history: no significant - Social History Smoking Status: Never Smoker Substance Use Type: None - Medications Home Medications: Home Medications Medication Instructions Recorded Confirmed Last Taken Type Famotidine [Pepcid] 20 mg PO BID #60 tablet 02/27/15 07/15/18 07/14/18 Rx Apixaban [Eliquis] 5 mg PO Q12HR #60 tablet 06/18/16 07/15/18 07/14/18 Rx AtorvaSTATin [Lipitor] 40 mg PO QHS #30 tablet 06/18/16 07/15/18 07/14/18 Rx Aspirin 81 mg PO QDAY 03/26/18 07/15/18 Unknown History Metoprolol Xl [Metoprolol 100 mg PO QDAY #30 tablet 03/27/18 07/15/18 07/14/18 Rx SUCCINATE ER TAB] Thiamine [Vitamin B-1] 100 mg PO QDAY #30 tablet 03/31/18 07/15/18 07/14/18 Rx Cetirizine HCl [Zyrtec 10mg tab] 10 mg PO DAILY 07/15/18 07/15/18 07/14/18 History Oxymetazoline 0.05% [Vicks Sinex] 1 spray INTRANASAL BID PRN 07/15/18 07/15/18 07/14/18 History Sacubitril/Valsartan [Entresto 24 24 - 26 tab PO DAILY 07/15/18 07/15/18 07/14/18 History mg-26 mg (Nf)] methIMAzole [Methimazole] 10 mg PO BID 07/15/18 07/15/18 07/14/18 History Sotalol [Betapace] 80 mg PO Q12HR #30 tablet 07/17/18 Unknown Rx ED Physical Exam - General Limitations: No Limitations General appearance: alert, in no apparent distress - Head Head exam: Present: atraumatic, normocephalic - Eye Eye exam: Present: normal appearance, PERRL, EOMI Pupils: Present: normal accommodation - ENT ENT exam: Present: mucous membranes moist - Neck Neck exam: Present: normal inspection - Respiratory Respiratory exam: Present: normal lung sounds bilaterally. Absent: respiratory distress, wheezes, rales - Cardiovascular Cardiovascular Exam: Present: regular rate, normal rhythm. Absent: systolic murmur, diastolic murmur, rubs, gallop - GI/Abdominal GI/Abdominal exam: Present: soft, normal bowel sounds. Absent: distended, tenderness, guarding - Rectal Rectal exam: Present: deferred - Extremities Exam Extremities exam: Present: normal inspection - Back Exam Back exam: Present: normal inspection - Neurological Exam Neurological exam: Present: alert, oriented X3 - Psychiatric Psychiatric exam: Present: normal affect, normal mood - Skin Skin exam: Present: warm, dry, intact, normal color. Absent: rash ED Course Vital Signs 11/22/18 11/22/18 11/22/18 13:53 15:30 16:01 Temperature 97.6 F Pulse Rate 58 L 67 68 Respiratory 16 14 15 Rate Blood Pressure 101/61 109/67 Blood Pressure 162/116 [Left] O2 Sat by Pulse 97 97 97 Oximetry 11/22/18 11/22/18 16:30 17:01 Temperature Pulse Rate 66 65 Respiratory 15 11 L Rate Blood Pressure 115/69 134/77 Blood Pressure [Left] O2 Sat by Pulse 97 97 Oximetry - Reevaluation(s) Reevaluation #1: I discussed all results with patient. I discussed plan of care with patient. Patient agrees with plan of care and CT and admission. Patient will be admitted to the hospitalist service. 11/22/18 18:16 - Consultations Consultation #1: Hospitalist consult for admission 11/22/18 18:25 MICHELL score - Michell Score Age > 65: (1) Yes Aspirin use within the Past 7 Days: (0) No 3 or more CAD Risk Factors: (1) Yes 2 or more Angina events in past 24 hrs: (1) Yes Known CAD with more than 50% Stenosis: (1) Yes Elevated Cardiac Markers: (1) Yes ST Deviation Greater than 0.5mm: (0) No MICHELL Score: 5 ED Medical Decision Making - Lab Data Result diagrams: 11/22/18 14:20 11/22/18 14:20 - EKG Data -: EKG Interpreted by Ga EKG shows normal: axis, intervals, QRS complexes, ST-T waves Rate: tachycardia - EKG Data Interpretation: other (atrial flutter on EKG) - Radiology Data Radiology results: report reviewed CHEST 2 VIEWS INDICATION: Chest pain. COMPARISON: 07/15/2018 FINDINGS: Support devices: Single lead cardiac pacemaker is in position. Heart: Mild cardiomegaly. Lungs/pleura: No acute air space or interstitial disease. No pneumothorax. Additional findings: None. IMPRESSION: Mild cardiomegaly. Lungs clear. - Medical Decision Making Patient is a 63-year-old male presents emergency multiple complaints. Patient's complaints including shortness of breath, chest pain, dizziness. Patient had a CT of the head was negative. Patient's chest x-ray negative. Patient's initial cardiac laboratory workup essentially unremarkable except for renal insufficiency. Patient does not have a history of kidney disease. Patient has a CAD and TN history. Patient are score higher than 2. Patient admitted to the hospitalist service for further evaluation treatment. Patient's initial EKG shows atrial flutter and on the monitoring tech patient shows a sinus rhythm. - Differential Diagnosis atrial flutter. Tachycardia. Chest pain. SOB Dizziness. Critical Care Time: Yes Critical care attestation.: If time is entered above; I have spent that time in minutes in the direct care of this critically ill patient, excluding procedure time. Critical Care Time: 35 minutes ED Disposition Clinical Impression: SOB (shortness of breath), Dizziness, Weakness, Renal insufficiency Atrial flutter Qualifiers: Atrial flutter type: unspecified Qualified Code(s): I48.92 - Unspecified atrial flutter Chest pain Qualifiers: Chest pain type: unspecified Qualified Code(s): R07.9 - Chest pain, unspecified Disposition: DC-09 OP ADMIT IP TO THIS HOSP Is pt being admited?: Yes Does the pt Need Aspirin: No Condition: Critical Instructions: Chest Pain (ED) Time of Disposition: 18:22
--- NOTE | 2018-11-22 19:44 | Cat Scan Report ---
CT BRAIN: 11/22/2018 INDICATION / CLINICAL INFORMATION: dizziness. COMPARISON: None available. FINDINGS: BRAIN/INTRACRANIAL STRUCTURES: Unenhanced CT images of the brain demonstrate no evidence of acute int racranial abnormality. Ventricles and sulci are within normal limits of size and shape for a patient of this age. There is no CT evidence of acute ischemic injury, hemorrhage, or mass. There are no abnormal extra-ax ial fluid collections. EXTRACRANIAL STRUCTURES: Mucosal retention cyst present in the maxillary sinuses bilaterally. Otherwi se unremarkable. IMPRESSION: No acute abnormality. All CT scans at this location are performed using dose reduction to ALARA by means of automated expos ure control. Signer Name: Fermin Joy MD Signed: 11/22/2018 7:39 PM Workstation Name: [id number]
[2018-11-22] MEDS ORDERED: TYLENOL PO PRN (20:20)
[2018-11-22] MEDS ORDERED: MILK OF MAGNESIA PO PRN (20:20)
[2018-11-22] MEDS ORDERED: ZOFRAN IV PRN (20:20)
[2018-11-22] MEDS ORDERED: SODIUM CHLORIDE FLUSH SYRINGE 10 ML IV PRN ×2 (20:20)
[2018-11-22] MEDS ORDERED: MORPHINE IV PRN (20:20)
--- NOTE | 2018-11-22 20:50 | History and Physical Report ---
<CASSIE ROSE - Last Filed: 11/22/18 23:02> History of Present Illness Date of examination: 11/22/18 Date of admission: 11/22/2018 Chief complaint: chest pain, SOB, dizziness, weakness x 2 days History of present illness: Patient is a 63-year-old male with PMHx of Gout, HTN, A-Fib (on Eliquis), hyperlipidemia, CHF s/p defibrillator, thyroid disease who presents to the ER with c/o chest pain, shortness of breath, dizziness and weakness. Patient states that the symptoms started around 1 am yesterday, he started having some chest pressure associated with difficulty breathing. Patient also states that he started a new medication for thyroid and Prednisone for gout symptoms yesterday, he was very gittery, he was feeling very dizzy, when he tried to bend down or stand up he felt that he was about to pass out. Patient states the dizziness was better with rest and worse with exertion. Patient states that he mainly comes to the ER because of the chest pressure that was concerning, it was at an intensity of 6 out of 10, radiating to his neck and left shoulder. Pt states that he was seen by his heat seal operator 1 month ago, who instructed him to come to the ER with any sighs of chest pain. In the ER he had an EKG who showed SB with no STEMI criteria, CE was negative, he was admitted for further evaluation of the chest pain. Medications and Allergies Allergies Allergy/AdvReac Type Severity Reaction Status Date / Time No Known Allergies Allergy Verified 11/22/18 13:38 Home Medications Medication Instructions Recorded Confirmed Last Taken Type Famotidine [Pepcid] 20 mg PO BID #60 tablet 02/27/15 11/23/18 11/22/18 Rx 20mg Apixaban [Eliquis] 5 mg PO Q12HR #60 tablet 06/18/16 11/23/18 11/22/18 Rx 5mg AtorvaSTATin [Lipitor] 40 mg PO QHS #30 tablet 06/18/16 11/23/18 11/22/18 Rx 40mg Aspirin 81 mg PO QDAY 03/26/18 11/23/18 11/22/18 History 81mg Metoprolol Xl [Metoprolol 100 mg PO QDAY #30 tablet 03/27/18 11/23/18 11/22/18 Rx SUCCINATE ER TAB] 100 mg Thiamine [Vitamin B-1] 100 mg PO QDAY #30 tablet 03/31/18 11/23/18 11/22/18 Rx 100mg Cetirizine HCl [Zyrtec 10mg tab] 10 mg PO DAILY 07/15/18 11/23/18 11/22/18 History 10mg Oxymetazoline 0.05% [Vicks Sinex] 1 spray INTRANASAL BID PRN 07/15/18 11/23/18 11/22/18 History Sacubitril/Valsartan [Entresto 24 24 - 26 tab PO DAILY 07/15/18 11/23/18 11/22/18 History mg-26 mg (Nf)] methIMAzole [Methimazole] 10 mg PO BID 07/15/18 11/23/18 11/22/18 History 10mg Sotalol [Betapace] 80 mg PO Q12HR #30 tablet 07/17/18 11/23/18 11/22/18 Rx 80mg Active Meds: Active Medications Acetaminophen (Tylenol) 650 mg PO Q4H PRN PRN Reason: Pain MILD(1-3)/Fever >100.5/ARCHULETA Aspirin (Ecotrin) 325 mg PO QDAY [facility] Atorvastatin Calcium (Lipitor) 40 mg PO QHS [facility] Enoxaparin Sodium (Lovenox) 40 mg SUB-Q QDAY [facility] Lisinopril (Zestril) 5 mg PO QDAY [facility] Magnesium Hydroxide (Milk Of Magnesia) 30 ml PO Q4H PRN PRN Reason: Constipation Morphine Sulfate (Morphine) 2 mg IV Q4H PRN PRN Reason: Pain, Moderate (4-6) Ondansetron HCl (Zofran) 4 mg IV Q8H PRN PRN Reason: Nausea And Vomiting Sodium Chloride (Sodium Chloride Flush Syringe 10 Ml) 10 ml IV BID NARGIS Sodium Chloride (Sodium Chloride Flush Syringe 10 Ml) 10 ml IV PRN PRN PRN Reason: LINE FLUSH Review of Systems Cardiovascular: chest pain Respiratory: shortness of breath, dyspnea on exertion Exam - Constitutional Vitals: Temp Pulse Resp BP Pulse Ox 97.6 F 62 13 121/64 97 11/22/18 13:53 11/22/18 19:01 11/22/18 19:01 11/22/18 19:01 11/22/18 19:01 General appearance: Present: no acute distress - EENT Eyes: Present: EOM intact - Neck Neck: Present: supple - Respiratory Respiratory effort: normal Respiratory: bilateral: CTA - Cardiovascular Rhythm: regular Heart Sounds: Present: S1 & S2 - Extremities Extremities: no ischemia, No edema Peripheral Pulses: within normal limits - Abdominal General gastrointestinal: Present: non-tender, non-distended Male genitourinary: Present: deferred - Rectal Rectal Exam: deferred - Integumentary Integumentary: Present: warm, dry, erythema - Psychiatric Psychiatric: appropriate mood/affect, cooperative - Neurologic Neurologic: moves all extremities Results - Labs CBC & Chem 7: 11/22/18 14:20 11/22/18 14:20 Labs: Laboratory Last Values WBC 15.9 K/mm3 (4.5-11.0) H 11/22/18 14:20 RBC 5.49 M/mm3 (3.65-5.03) H 11/22/18 14:20 Hgb 14.1 gm/dl (11.8-15.2) 11/22/18 14:20 Hct 44.8 % (35.5-45.6) 11/22/18 14:20 MCV 82 fl (84-94) L 11/22/18 14:20 MCH 26 pg (28-32) L 11/22/18 14:20 MCHC 32 % (32-34) 11/22/18 14:20 RDW 18.5 % (13.2-15.2) H 11/22/18 14:20 Plt Count 356 K/mm3 (140-440) 11/22/18 14:20 Lymph % (Auto) 15.0 % (13.4-35.0) 11/22/18 14:20 [place] % (Auto) 8.1 % (0.0-7.3) H 11/22/18 14:20 Eos % (Auto) 0.3 % (0.0-4.3) 11/22/18 14:20 Baso % (Auto) 0.2 % (0.0-1.8) 11/22/18 14:20 Lymph # 2.4 K/mm3 (1.2-5.4) 11/22/18 14:20 [place] # 1.3 K/mm3 (0.0-0.8) H 11/22/18 14:20 Eos # 0.0 K/mm3 (0.0-0.4) 11/22/18 14:20 Baso # 0.0 K/mm3 (0.0-0.1) 11/22/18 14:20 Seg Neutrophils % 76.4 % (40.0-70.0) H 11/22/18 14:20 Seg Neutrophils # 12.1 K/mm3 (1.8-7.7) H 11/22/18 14:20 PT 14.7 Sec. (12.2-14.9) 11/22/18 14:20 INR 1.18 (0.87-1.13) H 11/22/18 14:20 APTT 27.0 Sec. (24.2-36.6) 11/22/18 14:20 Sodium 143 mmol/L (137-145) 11/22/18 14:20 Potassium 4.1 mmol/L (3.6-5.0) 11/22/18 14:20 Chloride 104.9 mmol/L (98-107) 11/22/18 14:20 Carbon Dioxide 26 mmol/L (22-30) 11/22/18 14:20 16 mmol/L 11/22/18 14:20 BUN 27 mg/dL (9-20) H 11/22/18 14:20 1.6 mg/dL (0.8-1.5) H 11/22/18 14:20 Estimated GFR 53 ml/min 11/22/18 14:20 17 % 11/22/18 14:20 Glucose 112 mg/dL (75-100) H 11/22/18 14:20 Calcium 9.0 mg/dL (8.4-10.2) 11/22/18 14:20 Phosphorus 4.40 mg/dL (2.5-4.5) 11/22/18 14:20 Magnesium 2.20 mg/dL (1.7-2.3) 11/22/18 14:20 0.60 mg/dL (0.1-1.2) 11/22/18 14:20 AST 12 units/L (5-40) 11/22/18 14:20 ALT 14 units/L (7-56) 11/22/18 14:20 65 units/L (35-129) 11/22/18 14:20 < 0.010 ng/mL (0.00-0.029) 11/22/18 16:27 NT-Pro-B Natriuret Pep 5747 pg/mL (0-900) H 11/22/18 14:20 6.7 g/dL (6.3-8.2) 11/22/18 14:20 3.9 g/dL (3.9-5) 11/22/18 14:20 1.4 % 11/22/18 14:20 Assessment and Plan Assessment and plan: 1. Chest pain r/o ACS 2. H/o CAD/CHF (BNP 5747, EF unknown) 3. Dizzyness (likely due to medication and/or bradycardia) 4. Hyperlipidemia 5. Hypertension 6. A-Fib (on Eliquis) 7. Thyroid disease 8. Gout Plan Admit to medtele Consult cardiology Continue CE q6hr x 2 more Monitor vital signs Continue home meds Stress test in am if ok with cardiology Plan of care d/w pt, voiced understading Pt's condition and plan of care d/w Dr Charlton Advance Directives: Yes VTE prophylaxis?: Chemical Plan of care discussed with patient/family: Yes <VANESSA CHARLTON - Last Filed: 11/23/18 04:20> History of Present Illness Date of admission: 11/22/18 20:20 Medications and Allergies Active Meds: Active Medications Acetaminophen (Tylenol) 650 mg PO Q4H PRN PRN Reason: Pain MILD(1-3)/Fever >100.5/ARCHULETA Aspirin (Ecotrin) 325 mg PO QDAY [facility] Atorvastatin Calcium (Lipitor) 40 mg PO QHS [facility] Last Admin: 11/22/18 23:24 Dose: 40 mg Documented by: Enoxaparin Sodium (Lovenox) 40 mg SUB-Q QDAY [facility] Lisinopril (Zestril) 5 mg PO QDAY [facility] Magnesium Hydroxide (Milk Of Magnesia) 30 ml PO Q4H PRN PRN Reason: Constipation Morphine Sulfate (Morphine) 2 mg IV Q4H PRN PRN Reason: Pain, Moderate (4-6) Ondansetron HCl (Zofran) 4 mg IV Q8H PRN PRN Reason: Nausea And Vomiting Sodium Chloride (Sodium Chloride Flush Syringe 10 Ml) 10 ml IV BID NARGIS Last Admin: 11/22/18 23:24 Dose: 10 ml Documented by: Sodium Chloride (Sodium Chloride Flush Syringe 10 Ml) 10 ml IV PRN PRN PRN Reason: LINE FLUSH Exam - Constitutional Vitals: Temp Pulse Resp BP Pulse Ox 98.6 F 53 L 20 134/78 98 11/22/18 22:30 11/22/18 23:00 11/22/18 22:28 11/22/18 22:28 11/22/18 22:28 Results - Labs CBC & Chem 7: 11/22/18 14:20 11/22/18 14:20 Labs: Laboratory Last Values WBC 15.9 K/mm3 (4.5-11.0) H 11/22/18 14:20 RBC 5.49 M/mm3 (3.65-5.03) H 11/22/18 14:20 Hgb 14.1 gm/dl (11.8-15.2) 11/22/18 14:20 Hct 44.8 % (35.5-45.6) 11/22/18 14:20 MCV 82 fl (84-94) L 11/22/18 14:20 MCH 26 pg (28-32) L 11/22/18 14:20 MCHC 32 % (32-34) 11/22/18 14:20 RDW 18.5 % (13.2-15.2) H 11/22/18 14:20 Plt Count 356 K/mm3 (140-440) 11/22/18 14:20 Lymph % (Auto) 15.0 % (13.4-35.0) 11/22/18 14:20 [place] % (Auto) 8.1 % (0.0-7.3) H 11/22/18 14:20 Eos % (Auto) 0.3 % (0.0-4.3) 11/22/18 14:20 Baso % (Auto) 0.2 % (0.0-1.8) 11/22/18 14:20 Lymph # 2.4 K/mm3 (1.2-5.4) 11/22/18 14:20 [place] # 1.3 K/mm3 (0.0-0.8) H 11/22/18 14:20 Eos # 0.0 K/mm3 (0.0-0.4) 11/22/18 14:20 Baso # 0.0 K/mm3 (0.0-0.1) 11/22/18 14:20 Seg Neutrophils % 76.4 % (40.0-70.0) H 11/22/18 14:20 Seg Neutrophils # 12.1 K/mm3 (1.8-7.7) H 11/22/18 14:20 PT 14.7 Sec. (12.2-14.9) 11/22/18 14:20 INR 1.18 (0.87-1.13) H 11/22/18 14:20 APTT 27.0 Sec. (24.2-36.6) 11/22/18 14:20 Sodium 143 mmol/L (137-145) 11/22/18 14:20 Potassium 4.1 mmol/L (3.6-5.0) 11/22/18 14:20 Chloride 104.9 mmol/L (98-107) 11/22/18 14:20 Carbon Dioxide 26 mmol/L (22-30) 11/22/18 14:20 16 mmol/L 11/22/18 14:20 BUN 27 mg/dL (9-20) H 11/22/18 14:20 1.6 mg/dL (0.8-1.5) H 11/22/18 14:20 Estimated GFR 53 ml/min 11/22/18 14:20 17 % 11/22/18 14:20 Glucose 112 mg/dL (75-100) H 11/22/18 14:20 Calcium 9.0 mg/dL (8.4-10.2) 11/22/18 14:20 Phosphorus 4.40 mg/dL (2.5-4.5) 11/22/18 14:20 Magnesium 2.20 mg/dL (1.7-2.3) 11/22/18 14:20 0.60 mg/dL (0.1-1.2) 11/22/18 14:20 AST 12 units/L (5-40) 11/22/18 14:20 ALT 14 units/L (7-56) 11/22/18 14:20 65 units/L (35-129) 11/22/18 14:20 < 0.010 ng/mL (0.00-0.029) 11/22/18 16:27 NT-Pro-B Natriuret Pep 5747 pg/mL (0-900) H 11/22/18 14:20 6.7 g/dL (6.3-8.2) 11/22/18 14:20 3.9 g/dL (3.9-5) 11/22/18 14:20 1.4 % 11/22/18 14:20 Triglycerides 235 mg/dL (2-149) H 11/22/18 20:20 Cholesterol 155 mg/dL (50-199) 11/22/18 20:20 110 mg/dL (50-130) 11/22/18 20:20 30 mg/dL (40-59) L 11/22/18 20:20 5.16 % 11/22/18 20:20 Assessment and Plan Assessment and plan: 63-year-old male with a history of hypertension, coronary artery disease, CHF, hyperlipidemia, A. fib, hyperthyroidism comes to ER with complaints of chest pain, dizziness. Dizziness started after he was started on prednisone for a flare of gout. His chest pain is in the left substernal area which she describes a pressure-like sensation, constant, radiating to the bilateral shoulders. Admits to shortness of breath, diaphoresis. The stress test done in July, results reviewed. Patient seen and examined, discussed with nurse practitioner. Discontinue stress tests. Agree with Cardiology consult. Restart izabel, d/c marcin
[2018-11-22 21:25] LABS: Chol/HDL Ratio 5.16 %
[2018-11-22] MEDS: SODIUM CHLORIDE FLUSH SYRINGE 10 ML IV SCH (23:24)
[2018-11-23] MEDS ORDERED: ELIQUIS PO SCH (10:00)
[2018-11-23] MEDS ORDERED: ZESTRIL PO SCH (10:00)
[2018-11-23] MEDS ORDERED: ECOTRIN PO SCH (10:00)
[2018-11-23] MEDS ORDERED: LOVENOX SUB-Q SCH (10:00)
[2018-11-23] MEDS: SODIUM CHLORIDE FLUSH SYRINGE 10 ML IV SCH (10:16)
--- NOTE | 2018-11-23 11:47 | Consultation ---
History of Present Illness Consult date: 11/23/18 Consult reason: chest pain, congestive heart failure History of present illness: Patient is a 63-year old with a history of coronary artery disease, ischemic cardiomyopathy and primary ICD implant. His latest cardiac workup was a stress thallium test done 4 months ago, that reports no ischemia. He also has paroxysmal atrial fibrillation, and is on sotalol and metoprolol in addition to eliquis for oral anticoagulation. Co-morbidities includes hyperthyroidism, prompting the discontinuation of amiodarone, and hypertension. The patient returns to the hospital at this time with chest pain, shortness of breath and dizziness. Patient reports his presenting symptoms along with psychosis began after he started taking prednisone taper, prescribed for gout flare. Chest x-ray reports cardiomegaly but no evidence of interstitial edema. Initial ECG in the emergency room was sinus rhythm, but while on telemetry there have been multiple instances of rapid atrial fibrillation/flutter. Medications and Allergies Allergies Allergy/AdvReac Type Severity Reaction Status Date / Time No Known Allergies Allergy Verified 11/22/18 13:38 Home Medications Medication Instructions Recorded Confirmed Last Taken Type Famotidine [Pepcid] 20 mg PO BID #60 tablet 02/27/15 11/23/18 11/22/18 Rx 20mg Apixaban [Eliquis] 5 mg PO Q12HR #60 tablet 06/18/16 11/23/18 11/22/18 Rx 5mg AtorvaSTATin [Lipitor] 40 mg PO QHS #30 tablet 06/18/16 11/23/18 11/22/18 Rx 40mg Aspirin 81 mg PO QDAY 03/26/18 11/23/18 11/22/18 History 81mg Metoprolol Xl [Metoprolol 100 mg PO QDAY #30 tablet 03/27/18 11/23/18 11/22/18 Rx SUCCINATE ER TAB] 100 mg Thiamine [Vitamin B-1] 100 mg PO QDAY #30 tablet 03/31/18 11/23/18 11/22/18 Rx 100mg Cetirizine HCl [Zyrtec 10mg tab] 10 mg PO DAILY 07/15/18 11/23/18 11/22/18 History 10mg Oxymetazoline 0.05% [Vicks Sinex] 1 spray INTRANASAL BID PRN 07/15/18 11/23/18 11/22/18 History Sacubitril/Valsartan [Entresto 24 24 - 26 tab PO DAILY 07/15/18 11/23/18 11/22/18 History mg-26 mg (Nf)] methIMAzole [Methimazole] 10 mg PO BID 07/15/18 11/23/18 11/22/18 History 10mg Sotalol [Betapace] 80 mg PO Q12HR #30 tablet 07/17/18 11/23/18 11/22/18 Rx 80mg Active Meds: Active Medications Acetaminophen (Tylenol) 650 mg PO Q4H PRN PRN Reason: Pain MILD(1-3)/Fever >100.5/ARCHULETA Apixaban (Eliquis) 5 mg PO Q12HR [facility]; Protocol Last Admin: 11/23/18 10:16 Dose: 5 mg Documented by: Atorvastatin Calcium (Lipitor) 40 mg PO QHS [facility] Last Admin: 11/22/18 23:24 Dose: 40 mg Documented by: Lisinopril (Zestril) 5 mg PO QDAY [facility] Last Admin: 11/23/18 10:15 Dose: 5 mg Documented by: Magnesium Hydroxide (Milk Of Magnesia) 30 ml PO Q4H PRN PRN Reason: Constipation Morphine Sulfate (Morphine) 2 mg IV Q4H PRN PRN Reason: Pain, Moderate (4-6) Ondansetron HCl (Zofran) 4 mg IV Q8H PRN PRN Reason: Nausea And Vomiting Sodium Chloride (Sodium Chloride Flush Syringe 10 Ml) 10 ml IV BID [facility] Last Admin: 11/23/18 10:16 Dose: 10 ml Documented by: Sodium Chloride (Sodium Chloride Flush Syringe 10 Ml) 10 ml IV PRN PRN PRN Reason: LINE FLUSH Physical Examination Vital Signs Temp Pulse Resp BP Pulse Ox 97.6 F 58 L 16 162/116 97 11/22/18 13:53 11/22/18 13:53 11/22/18 13:53 11/22/18 13:53 11/22/18 13:53 General appearance: no acute distress HEENT: Positive: PERRL Neck: Positive: trachea midline Cardiac: Positive: irregularly irregular Lungs: Positive: Decreased Breath Sounds Neuro: Positive: Grossly Intact Extremities: Absent: edema Results 11/22/18 14:20 11/22/18 14:20 Cardiac Enzymes 11/22/18 Range/Units 14:20 AST 12 (5-40) units/L Coagulation 11/22/18 Range/Units 14:20 PT 14.7 (12.2-14.9) Sec. INR 1.18 H (0.87-1.13) APTT 27.0 (24.2-36.6) Sec. Lipids 11/22/18 Range/Units 20:20 Triglycerides 235 H (2-149) mg/dL Cholesterol 155 (50-199) mg/dL HDL Cholesterol 30 L (40-59) mg/dL Cholesterol/HDL Ratio 5.16 % CBC 11/22/18 Range/Units 14:20 WBC 15.9 H (4.5-11.0) K/mm3 RBC 5.49 H (3.65-5.03) M/mm3 Hgb 14.1 (11.8-15.2) gm/dl Hct 44.8 (35.5-45.6) % Plt Count 356 (140-440) K/mm3 Lymph # 2.4 (1.2-5.4) K/mm3 [place] # 1.3 H (0.0-0.8) K/mm3 Eos # 0.0 (0.0-0.4) K/mm3 Baso # 0.0 (0.0-0.1) K/mm3 Comprehensive Metabolic Panel 11/22/18 Range/Units 14:20 Sodium 143 (137-145) mmol/L Potassium 4.1 (3.6-5.0) mmol/L Chloride 104.9 (98-107) mmol/L Carbon Dioxide 26 (22-30) mmol/L BUN 27 H (9-20) mg/dL Creatinine 1.6 H (0.8-1.5) mg/dL Glucose 112 H (75-100) mg/dL Calcium 9.0 (8.4-10.2) mg/dL AST 12 (5-40) units/L ALT 14 (7-56) units/L Alkaline Phosphatase 65 (35-129) units/L Total Protein 6.7 (6.3-8.2) g/dL Albumin 3.9 (3.9-5) g/dL Assessment and Plan Paroxysmal atrial fibrillation on oral anticoagulation with Eliquis as an outpatient. patient recently off amiodarone due to hyperthyroidism; on sotalol and metoprolol Hx of dilated ischemic cardiomyopathy on entresto as an outpatient Cardiac defibrillator in situ Hx Hyperthyroidism Hx of CAD [facility] 04/2016: patent paroximal LAD stent, EF 25-30%. no ischemia by MPI 07/2018. Continue medical therapy for ischemic cardiomyopathy, coronary artery disease and paroxysmal atrial fibrillation. No further cardiac workup indicated. Stable for cardiac discharge.
--- NOTE | 2018-11-23 11:55 | Progress Note ---
Hospitalist Physical - Constitutional Vitals: Temp Pulse Resp BP Pulse Ox 97.4 F L 64 16 148/94 99 11/23/18 09:05 11/23/18 10:15 11/23/18 09:05 11/23/18 10:15 11/23/18 09:05 General appearance: Present: no acute distress Results - Labs CBC & Chem 7: 11/22/18 14:20 11/22/18 14:20 Labs: Laboratory Last Values WBC 15.9 K/mm3 (4.5-11.0) H 11/22/18 14:20 RBC 5.49 M/mm3 (3.65-5.03) H 11/22/18 14:20 Hgb 14.1 gm/dl (11.8-15.2) 11/22/18 14:20 Hct 44.8 % (35.5-45.6) 11/22/18 14:20 MCV 82 fl (84-94) L 11/22/18 14:20 MCH 26 pg (28-32) L 11/22/18 14:20 MCHC 32 % (32-34) 11/22/18 14:20 RDW 18.5 % (13.2-15.2) H 11/22/18 14:20 Plt Count 356 K/mm3 (140-440) 11/22/18 14:20 Lymph % (Auto) 15.0 % (13.4-35.0) 11/22/18 14:20 [place] % (Auto) 8.1 % (0.0-7.3) H 11/22/18 14:20 Eos % (Auto) 0.3 % (0.0-4.3) 11/22/18 14:20 Baso % (Auto) 0.2 % (0.0-1.8) 11/22/18 14:20 Lymph # 2.4 K/mm3 (1.2-5.4) 11/22/18 14:20 [place] # 1.3 K/mm3 (0.0-0.8) H 11/22/18 14:20 Eos # 0.0 K/mm3 (0.0-0.4) 11/22/18 14:20 Baso # 0.0 K/mm3 (0.0-0.1) 11/22/18 14:20 Seg Neutrophils % 76.4 % (40.0-70.0) H 11/22/18 14:20 Seg Neutrophils # 12.1 K/mm3 (1.8-7.7) H 11/22/18 14:20 PT 14.7 Sec. (12.2-14.9) 11/22/18 14:20 INR 1.18 (0.87-1.13) H 11/22/18 14:20 APTT 27.0 Sec. (24.2-36.6) 11/22/18 14:20 Sodium 143 mmol/L (137-145) 11/22/18 14:20 Potassium 4.1 mmol/L (3.6-5.0) 11/22/18 14:20 Chloride 104.9 mmol/L (98-107) 11/22/18 14:20 Carbon Dioxide 26 mmol/L (22-30) 11/22/18 14:20 16 mmol/L 11/22/18 14:20 BUN 27 mg/dL (9-20) H 11/22/18 14:20 1.6 mg/dL (0.8-1.5) H 11/22/18 14:20 Estimated GFR 53 ml/min 11/22/18 14:20 17 % 11/22/18 14:20 Glucose 112 mg/dL (75-100) H 11/22/18 14:20 Calcium 9.0 mg/dL (8.4-10.2) 11/22/18 14:20 Phosphorus 4.40 mg/dL (2.5-4.5) 11/22/18 14:20 Magnesium 2.20 mg/dL (1.7-2.3) 11/22/18 14:20 0.60 mg/dL (0.1-1.2) 11/22/18 14:20 AST 12 units/L (5-40) 11/22/18 14:20 ALT 14 units/L (7-56) 11/22/18 14:20 65 units/L (35-129) 11/22/18 14:20 < 0.010 ng/mL (0.00-0.029) 11/23/18 05:40 NT-Pro-B Natriuret Pep 5747 pg/mL (0-900) H 11/22/18 14:20 6.7 g/dL (6.3-8.2) 11/22/18 14:20 3.9 g/dL (3.9-5) 11/22/18 14:20 1.4 % 11/22/18 14:20 Triglycerides 235 mg/dL (2-149) H 11/22/18 20:20 Cholesterol 155 mg/dL (50-199) 11/22/18 20:20 110 mg/dL (50-130) 11/22/18 20:20 30 mg/dL (40-59) L 11/22/18 20:20 5.16 % 11/22/18 20:20 TSH 9.060 mlU/mL (0.270-4.200) H 11/23/18 10:47 Free T4 0.90 ng/dL (0.76-1.46) 11/23/18 10:47 Active Medications - Current Medications Current Medications: Generic Name Dose Route Start Last Admin Trade Name Freq PRN Reason Stop Dose Admin Acetaminophen 650 mg 11/22/18 20:20 Tylenol PO Q4H PRN Pain MILD(1-3)/Fever >100.5/ARCHULETA Apixaban 5 mg 11/23/18 10:00 11/23/18 10:16 Eliquis PO 5 mg Q12HR NARGIS Administration Protocol Atorvastatin Calcium 40 mg 11/22/18 22:00 11/22/18 23:24 Lipitor PO 40 mg QHS NARGIS Administration Lisinopril 5 mg 11/23/18 10:00 11/23/18 10:15 Zestril PO 5 mg QDAY NARGIS Administration Magnesium Hydroxide 30 ml 11/22/18 20:20 Milk Of Magnesia PO Q4H PRN Constipation Morphine Sulfate 2 mg 11/22/18 20:20 Morphine IV Q4H PRN Pain, Moderate (4-6) Ondansetron HCl 4 mg 11/22/18 20:20 Zofran IV Q8H PRN Nausea And Vomiting Sodium Chloride 10 ml 11/22/18 22:00 11/23/18 10:16 Sodium Chloride Flush Syringe 10 Ml IV 10 ml BID NARGIS Administration Sodium Chloride 10 ml 11/22/18 20:20 Sodium Chloride Flush Syringe 10 Ml IV PRN PRN LINE FLUSH
--- NOTE | 2018-11-23 12:01 | Discharge Summary ---
Providers - Providers Date of Admission: 11/22/18 20:20 Date of discharge: 11/23/18 Attending physician: VICENTE ANNA 11/22/18 Consult to Cardiac Rehabilitation [CONS] Routine Reason For Exam: Phase I 11/22/18 20:44 Consult to Physician [CONS] Routine Comment: Consulting Provider: ANURADHA YOU Physician Instructions: Reason For Exam: chest pain, CHF [facility] Reason for admission: cp Condition: Critical Hospital course: Patient is a 63-year old with a history of coronary artery disease, ischemic cardiomyopathy and primary ICD implant. His latest cardiac workup was a stress thallium test done 4 months ago, that reports no ischemia. He also has paroxysmal atrial fibrillation, and is on sotalol and metoprolol in addition to eliquis for oral anticoagulation. Co-morbidities includes hyperthyroidism, prompting the discontinuation of amiodarone, and hypertension. The patient returned to the hospital with chest pain, shortness of breath. Patient reported his presenting symptoms along with psychosis began after he started taking pre dnisone taper, prescribed for gout flare. Chest x-ray reported cardiomegaly but no evidence of interstitial edema. Initial ECG in the emergency room was sinus rhythm, but while on telemetry there have been multiple instances of rapid atrial fibrillation/flutter. Cardiology evaluated the pt in consultation and recommended continued medical therapy for ischemic cardiomyopathy, coronary artery disease and paroxysmal atrial fibrillation. No further cardiac workup indicated per Cardiology. Stable for cardiac discharge. Discharge time 35 minutes Disposition: [id number] TO HOME OR SELFCARE Time spent for discharge: 35 - Discharge Diagnoses (1) Atrial flutter Status: Acute Qualifiers: Atrial flutter type: unspecified Qualified Code(s): I48.92 - Unspecified atrial flutter (2) Chest pain Status: Acute Qualifiers: Chest pain type: unspecified Qualified Code(s): R07.9 - Chest pain, unspecified Comment: Atypical chest pain consistent with osteochondritis recommended [id number] NSAIDs for several days. Has follow-up with Dr. nataly Mondragon heart. (3) Atrial fibrillation with RVR Status: Acute (4) HTN (hypertension) Status: Acute Comment: Her control will resume present medications. (5) Ischemic cardiomyopathy Status: Acute (6) Obesity (BMI 35.0-39.9 without comorbidity) Status: Acute Core Measure Documentation - Palliative Care Palliative Care/ Comfort Measures: Not Applicable - Core Measures Any of the following diagnoses?: none Exam - Constitutional Vitals: Temp Pulse Resp BP Pulse Ox 97.4 F L 64 16 148/94 99 11/23/18 09:05 11/23/18 10:15 11/23/18 09:05 11/23/18 10:15 11/23/18 09:05 General appearance: Present: no acute distress, well-nourished - EENT Eyes: Present: PERRL ENT: hearing intact, clear oral mucosa - Neck Neck: Present: supple, normal ROM - Respiratory Respiratory effort: normal Respiratory: bilateral: CTA - Cardiovascular Heart Sounds: Present: S1 & S2. Absent: rub, click - Extremities Extremities: pulses symmetrical, No edema Peripheral Pulses: within normal limits - Abdominal General gastrointestinal: Present: soft, non-tender, non-distended, normal bowel sounds Male genitourinary: Present: normal - Integumentary Integumentary: Present: clear, warm, dry - Musculoskeletal Musculoskeletal: gait normal, strength equal bilaterally - Psychiatric Psychiatric: appropriate mood/affect, intact judgment & insight - Neurologic Neurologic: CNII-XII intact, moves all extremities Plan Activity: advance as tolerated Weight Bearing Status: Weight Bear as Tolerated Follow up with: KATI ANN MD [Primary Care Provider] - 7 Days ANNA CARROLL MD [Staff Physician] - 7 Days Prescriptions: Sotalol [Betapace] 80 mg PO Q12HR #30 tablet Apixaban [Eliquis] 5 mg PO Q12HR #60 tablet AtorvaSTATin [Lipitor] 40 mg PO QHS #30 tablet Metoprolol Xl [Metoprolol SUCCINATE ER TAB] 100 mg PO QDAY #30 tablet Famotidine [Pepcid] 20 mg PO BID #60 tablet Thiamine [Vitamin B-1] 100 mg PO QDAY #30 tablet Cetirizine HCl [Zyrtec 10mg tab] 10 mg PO DAILY #30 tablet
[2018-11-23 14:23] VITALS: BP 145/87
== END 2018-11-23 14:50 | disposition home or self-care (01) | DRG 554 ==
LOC: ED 13:38 → 4A 20:20
PROVIDERS: ADMIT Internal Medicine; ATTEND Hospitalist
DX: M93.88 Other specified osteochondropathies other (principal); I48.92 Unspecified atrial flutter; M10.9 Gout, unspecified; E78.00 Pure hypercholesterolemia, unspecified; I11.0 Hypertensive heart disease with heart failure; E78.5 Hyperlipidemia, unspecified; I48.0 Paroxysmal atrial fibrillation; I25.5 Ischemic cardiomyopathy; E05.90 Thyrotoxicosis, unspecified without thyrotoxic crisis or storm; E66.9 Obesity, unspecified; I50.9 Heart failure, unspecified; Z79.82 Long term (current) use of aspirin; Z79.01 Long term (current) use of anticoagulants; Z79.899 Other long term (current) drug therapy; I25.2 Old myocardial infarction; Z95.5 Presence of coronary angioplasty implant and graft; Z90.49 Acquired absence of other specified parts of digestive tract; Z95.810 Presence of automatic (implantable) cardiac defibrillator; Z68.35 Body mass index [BMI] 35.0-35.9, adult
CPT/HCPCS: 36415; 70450; 71046; 80053; 80061; 83735; 83880; 84100; 84439; 84443; 84484; 85025; 85610; 85730; 93005; 93010; G0378; A9270-GY

== ENCOUNTER 2018-12-09 13:34 | Inpatient (IN) | payer OTHER ==
[2018-12-09 14:37] LABS: Basophils # (Auto) 0.1 K/mm3 (0.0-0.1); Basophils % (Auto) 0.8 % (0.0-1.8); Eosinophils # (Auto) 0.1 K/mm3 (0.0-0.4); Eosinophils % (Auto) 1.1 % (0.0-4.3); Hematocrit 38.2 % (35.5-45.6); Hemoglobin 12.4 gm/dl (11.8-15.2); Lymphocytes % (Auto) 12.5 % (13.4-35.0); Mean Corpuscular HGB Conc 32 % (32-34); Mean Corpuscular Volume 81 fl (84-94); Monocytes # (Auto) 0.6 K/mm3 (0.0-0.8); Monocytes % (Auto) 7.2 % (0.0-7.3); Platelet Count 181 K/mm3 (140-440); Red Blood Count 4.75 M/mm3 (3.65-5.03); Red Cell Distribution Width 17.8 % (13.2-15.2)
--- NOTE | 2018-12-09 14:41 | Emergency Department Report ---
ED Chest Pain HPI - General Chief Complaint: Chest Pain Stated Complaint: DEFIB WENT OFF Time Seen by Provider: 12/09/18 14:05 Source: patient, family, EMS Mode of arrival: Ambulatory Limitations: No Limitations - History of Present Illness Initial Comments: 63-year-old -[place]oc[place] male chest pain shortness of breathing internal medicine for patient has a past medical history of hypertension hypercholesterolemia CT in 2015 ICD placement in 2017 with 2 stents and middle artery per patient. Patient reports that he started to have shortness of bl eeding when he was outside working in the yard he bent over and began feeling dizzy and shortly after his defibrillator went off. Patient complains of mild chest pain or pressure. 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 Patient recently hospitalized this 2018. MD Complaint: chest pain -: This afternoon Onset: during exertion Pain Location: substernal Pain Radiation: none Severity: mild Quality: pressure Consistency: constant Improves With: nothing Worsens With: nothing Treatments Prior to Arrival: defibrillation (icd) - Related Data On Oral Contraceptives: No Home Medications Medication Instructions Recorded Confirmed Last Taken Aspirin 81 mg PO QDAY 03/26/18 11/23/18 11/22/18 81mg Oxymetazoline 0.05% [Vicks Sinex] 1 spray INTRANASAL BID PRN 07/15/18 11/23/18 11/22/18 Sacubitril/Valsartan [Entresto 24 24 - 26 tab PO DAILY 07/15/18 11/23/18 11/22/18 mg-26 mg (Nf)] methIMAzole [Methimazole] 10 mg PO BID 07/15/18 11/23/18 11/22/18 10mg Previous Rx's Medication Instructions Recorded Last Taken Type Apixaban [Eliquis] 5 mg PO Q12HR tablet 11/23/18 Unknown Rx Apixaban [Eliquis] 5 mg PO Q12HR #60 tablet 11/23/18 Unknown Rx AtorvaSTATin [Lipitor] 40 mg PO QHS tablet 11/23/18 Unknown Rx AtorvaSTATin [Lipitor] 40 mg PO QHS #30 tablet 11/23/18 Unknown Rx Cetirizine HCl [Zyrtec 10mg tab] 10 mg PO DAILY #30 tablet 11/23/18 Unknown Rx Famotidine [Pepcid] 20 mg PO BID #60 tablet 11/23/18 Unknown Rx Lisinopril [Zestril TAB] 5 mg PO QDAY tablet 11/23/18 Unknown Rx Metoprolol Xl [Metoprolol 100 mg PO QDAY #30 tablet 11/23/18 Unknown Rx SUCCINATE ER TAB] Sotalol [Betapace] 80 mg PO Q12HR #30 tablet 11/23/18 Unknown Rx Thiamine [Vitamin B-1] 100 mg PO QDAY #30 tablet 11/23/18 Unknown Rx Allergies Allergy/AdvReac Type Severity Reaction Status Date / Time No Known Allergies Allergy Verified 11/22/18 13:38 Heart Score - HEART Score History: Moderately suspicious ED Review of Systems ROS: Stated complaint: DEFIB WENT OFF Other details as noted in HPI Comment: All other systems reviewed and negative Respiratory: shortness of breath Cardiovascular: chest pain ED Past Medical Hx - Past Medical History Hx Hypertension: Yes Hx Heart Attack/AMI: Yes (2014) Hx Congestive Heart Failure: Yes Hx Diabetes: No Hx Asthma: No Hx COPD: No Additional medical history: gasritis. gout. high cholesterol. New Thyroid problem x 1 week - Surgical History Hx Coronary Stent: Yes (2014) Hx Internal Defibrillator: Yes Hx Appendectomy: Yes Additional Surgical History: Defibrillator September 2016 - Social History Smoking Status: Never Smoker - Medications Home Medications: Home Medications Medication Instructions Recorded Confirmed Last Taken Type Aspirin 81 mg PO QDAY 03/26/18 11/23/18 11/22/18 History 81mg Oxymetazoline 0.05% [Vicks Sinex] 1 spray INTRANASAL BID PRN 07/15/18 11/23/18 11/22/18 History Sacubitril/Valsartan [Entresto 24 24 - 26 tab PO DAILY 07/15/18 11/23/18 11/22/18 History mg-26 mg (Nf)] methIMAzole [Methimazole] 10 mg PO BID 07/15/18 11/23/18 11/22/18 History 10mg Apixaban [Eliquis] 5 mg PO Q12HR tablet 11/23/18 Unknown Rx Apixaban [Eliquis] 5 mg PO Q12HR #60 tablet 11/23/18 Unknown Rx AtorvaSTATin [Lipitor] 40 mg PO QHS tablet 11/23/18 Unknown Rx AtorvaSTATin [Lipitor] 40 mg PO QHS #30 tablet 11/23/18 Unknown Rx Cetirizine HCl [Zyrtec 10mg tab] 10 mg PO DAILY #30 tablet 11/23/18 Unknown Rx Famotidine [Pepcid] 20 mg PO BID #60 tablet 11/23/18 Unknown Rx Lisinopril [Zestril TAB] 5 mg PO QDAY tablet 11/23/18 Unknown Rx Metoprolol Xl [Metoprolol 100 mg PO QDAY #30 tablet 11/23/18 Unknown Rx SUCCINATE ER TAB] Sotalol [Betapace] 80 mg PO Q12HR #30 tablet 11/23/18 Unknown Rx Thiamine [Vitamin B-1] 100 mg PO QDAY #30 tablet 11/23/18 Unknown Rx ED Physical Exam - General Limitations: No Limitations General appearance: alert, in no apparent distress - Head Head exam: Present: atraumatic, normocephalic - Eye Eye exam: Present: normal appearance - ENT ENT exam: Present: normal exam, mucous membranes moist - Neck Neck exam: Present: normal inspection, other (no JVD) - Respiratory Respiratory exam: Present: normal lung sounds bilaterally. Absent: respiratory distress - Cardiovascular Cardiovascular Exam: Present: bradycardia - GI/Abdominal GI/Abdominal exam: Present: soft, normal bowel sounds. Absent: distended, ten derness - Extremities Exam Extremities exam: Present: normal inspection. Absent: full ROM, tenderness - Back Exam Back exam: Present: normal inspection - Neurological Exam Neurological exam: Present: alert, oriented X3 - Psychiatric Psychiatric exam: Present: normal affect, normal mood - Skin Skin exam: Present: warm, dry, intact, normal color. Absent: rash ED Course Vital Signs 12/09/18 12/09/18 12/09/18 13:47 13:51 14:00 Temperature Pulse Rate 79 74 Respiratory 10 L 9 L 14 Rate Blood Pressure 111/86 130/79 Blood Pressure [Left] O2 Sat by Pulse 98 99 96 Oximetry 12/09/18 12/09/18 12/09/18 14:31 14:46 15:00 Temperature 98.4 F Pulse Rate 89 72 70 Respiratory 14 12 8 L Rate Blood Pressure 130/79 133/74 Blood Pressure 133/74 [Left] O2 Sat by Pulse 96 98 97 Oximetry HARRY score - Harry Score Age > 65: (1) Yes Aspirin use within the Past 7 Days: (0) No 3 or more CAD Risk Factors: (1) Yes 2 or more Angina events in past 24 hrs: (1) Yes Known CAD with more than 50% Stenosis: (1) Yes Elevated Cardiac Markers: (1) Yes ST Deviation Greater than 0.5mm: (0) No HARRY Score: 5 ED Medical Decision Making - Lab Data Result diagrams: 12/09/18 14:23 12/09/18 14:23 Lab Results 12/09/18 12/09/18 12/09/18 Range/Units 14:23 14:23 14:23 WBC 7.6 (4.5-11.0) K/mm3 RBC 4.75 (3.65-5.03) M/mm3 Hgb 12.4 (11.8-15.2) gm/dl Hct 38.2 (35.5-45.6) % MCV 81 L (84-94) fl MCH 26 L (28-32) pg MCHC 32 (32-34) % RDW 17.8 H (13.2-15.2) % Plt Count 181 (140-440) K/mm3 Lymph % (Auto) 12.5 L (13.4-35.0) % [place] % (Auto) 7.2 (0.0-7.3) % Eos % (Auto) 1.1 (0.0-4.3) % Baso % (Auto) 0.8 (0.0-1.8) % Lymph # 1.0 L (1.2-5.4) K/mm3 [place] # 0.6 (0.0-0.8) K/mm3 Eos # 0.1 (0.0-0.4) K/mm3 Baso # 0.1 (0.0-0.1) K/mm3 Seg Neutrophils % 78.4 H (40.0-70.0) % Seg Neutrophils # 6.0 (1.8-7.7) K/mm3 Sodium 142 (137-145) mmol/L Potassium 4.3 (3.6-5.0) mmol/L Chloride 106.0 (98-107) mmol/L Carbon Dioxide 27 (22-30) mmol/L Anion Gap 13 mmol/L BUN 14 (9-20) mg/dL Creatinine 1.1 (0.8-1.5) mg/dL Estimated GFR > 60 ml/min BUN/Creatinine Ratio 13 % Glucose 110 H (75-100) mg/dL Calcium 9.3 (8.4-10.2) mg/dL Phosphorus 2.70 (2.5-4.5) mg/dL Magnesium 1.90 (1.7-2.3) mg/dL Troponin T < 0.010 (0.00-0.029) ng/mL NT-Pro-B Natriuret Pep 758.0 (0-900) pg/mL - Radiology Data Radiology results: report reviewed Patient: MATEUSZ TAY MR#: [id number] : 1955 Acct:[id number] Age/Sex: 63 / M ADM Date: 12/09/18 Loc: ED Attending Dr: Ordering Physician: LINDEN MAGDALENO Date of Service: 12/09/18 Procedure(s): XR chest 1V ap Accession Number(s): [id number] cc: LINDEN MAGDALENO Fluoro Time In Minutes: CHEST 1 VIEW INDICATION: defibulator fired COMPARISON: 07/15/2018 FINDINGS: Support devices: Unipolar pacemaker, unchanged Heart: Stable. Lungs/Pleura: No acute pulmonary or pleural findings. IMPRESSION: 1. No significant change. Signer Name: Douglas Booth MD Signed: 12/09/2018 2:37 PM Workstation Name: [id number] Transcribed By: TM Dictated By: Douglas Booth MD Electronically Authenticated By: Douglas Booth MD Signed Date/Time: 12/09/181436 DD/ 36 TD/TT: - Medical Decision Making 63-year-old -[place]oc[place] male chest pain shortness of breathing internal medicine for patient has a past medical history of hypertension hypercholesterolemia CT in 2015 ICD placement in 2017 with 2 stents and middle artery per patient. Patient reports that he started to have shortness of bleeding when he was outside working in the yard he bent over and began feeling dizzy and shortly after his defibrillator went off. Patient complains of mild chest pain or pressure. 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 Patient recently hospitalized this 2018. Spoke to Dr. Sommers from [facility] he recommends patient to be admitted to observation and possible Stress test in the morning. Spoke with Vale Fu regarding admission. Bridge orders have been placed. Attending Dr. Reyes is aware of admission. Critical care attestation.: If time is entered above; I have spent that time in minutes in the direct care of this critically ill patient, excluding procedure time. ED Disposition Clinical Impression: Chest pain Qualifiers: Chest pain type: unspecified Qualified Code(s): R07.9 - Chest pain, unspecified Disposition: OP ADMIT IP TO THIS HOSP Is pt being admited?: Yes Does the pt Need Aspirin: No Condition: Stable Instructions: Chest Pain (ED)
[2018-12-09 14:58] LABS: BUN/Creatinine Ratio 13; Blood Urea Nitrogen 14 mg/dL (9-20); Calcium 9.3 mg/dL (8.4-10.2); Hemolysis Index 7
[2018-12-09 15:41] LABS: Bacteria,Urine 2+ /HPF (Negative); Bilirubin,Urine NEG (Negative); Blood,Urine NEG (Negative); Color,Urine Yellow (Yellow); Mucus,Urine FEW /HPF; Sperm,Urine FEW /HPF (NP)
[2018-12-09 15:45] LABS: Amphetamine Screen,Urine PRESUMPTIVE NEGATIVE; Benzodiazepines Screen,Urine PRESUMPTIVE NEGATIVE; Cannabinoid Screen,Urine PRESUMPTIVE NEGATIVE; Cocaine Screen,Urine PRESUMPTIVE NEGATIVE; Methadone Screen,Urine PRESUMPTIVE NEGATIVE; Opiate Screen,Urine PRESUMPTIVE NEGATIVE
[2018-12-09] MEDS ORDERED: VICKS SINEX NS PRN (22:39)
--- NOTE | 2018-12-09 22:39 | History and Physical Report ---
History of Present Illness Date of examination: 12/09/18 Date of admission: 12/09/18 15:04 Chief complaint: Chest pain History of present illness: 63-year-old -Nepalese male comes in for chest pain and shortness of breath 1 hour ago.Also experienced defirillator shock.Follows with [facility].Had a stress test 3 months ago which was normal.Chest pain and SOB resolved.No exacerbating or relieving factors. Past Medical History Hypertension: Yes Heart Attack/AMI: Yes (2014) Congestive Heart Failure: Yes Additional medical history: gasritis. gout. high cholesterol. New Thyroid problem x 1 week Surgical History Coronary Stent: Yes (2014) Internal Defibrillator: Yes Appendectomy: Yes Additional Surgical History: Defibrillator September 2016 Social History Smoking Status: Never Smoker Family History Htn - Medications Home Medications: Home Medications Medication Instructions Recorded Confirmed Last Taken Type Aspirin 81 mg PO QDAY 03/26/18 11/23/18 11/22/18 History 81mg Oxymetazoline 0.05% [Vicks Sinex] 1 spray INTRANASAL BID PRN 07/15/18 11/23/18 11/22/18 History Sacubitril/Valsartan [Entresto 24 24 - 26 tab PO DAILY 07/15/18 11/23/18 11/22/18 History mg-26 mg (Nf)] methIMAzole [Methimazole] 10 mg PO BID 07/15/18 11/23/18 11/22/18 History 10mg Apixaban [Eliquis] 5 mg PO Q12HR tablet 11/23/18 Unknown Rx Apixaban [Eliquis] 5 mg PO Q12HR #60 tablet 11/23/18 Unknown Rx AtorvaSTATin [Lipitor] 40 mg PO QHS tablet 11/23/18 Unknown Rx AtorvaSTATin [Lipitor] 40 mg PO QHS #30 tablet 11/23/18 Unknown Rx Cetirizine HCl [Zyrtec 10mg tab] 10 mg PO DAILY #30 tablet 11/23/18 Unknown Rx Famotidine [Pepcid] 20 mg PO BID #60 tablet 11/23/18 Unknown Rx Lisinopril [Zestril TAB] 5 mg PO QDAY tablet 11/23/18 Unknown Rx Metoprolol Xl [Metoprolol 100 mg PO QDAY #30 tablet 11/23/18 Unknown Rx SUCCINATE ER TAB] Sotalol [Betapace] 80 mg PO Q12HR #30 tablet 11/23/18 Unknown Rx Thiamine [Vitamin B-1] 100 mg PO QDAY #30 tablet 11/23/18 Unknown Rx Review of Systems ROS: Stated complaint: DEFIB WENT OFF Other details as noted in HPI Comment: All other systems reviewed and negative Respiratory: shortness of breath Cardiovascular: chest pain Medications and Allergies Allergies Allergy/AdvReac Type Severity Reaction Status Date / Time No Known Allergies Allergy Verified 11/22/18 13:38 Home Medications Medication Instructions Recorded Confirmed Last Taken Type Aspirin 81 mg PO QDAY 03/26/18 11/23/18 11/22/18 History 81mg Oxymetazoline 0.05% [Vicks Sinex] 1 spray INTRANASAL BID PRN 07/15/18 11/23/18 11/22/18 History Sacubitril/Valsartan [Entresto 24 24 - 26 tab PO DAILY 07/15/18 11/23/1811/22 History mg-26 mg (Nf)] methIMAzole [Methimazole] 10 mg PO BID 07/15/18 11/23/18 11/22/18 History 10mg Apixaban [Eliquis] 5 mg PO Q12HR tablet 11/23/18 Unknown Rx Apixaban [Eliquis] 5 mg PO Q12HR #60 tablet 11/23/18 Unknown Rx AtorvaSTATin [Lipitor] 40 mg PO QHS tablet 11/23/18 Unknown Rx AtorvaSTATin [Lipitor] 40 mg PO QHS #30 tablet 11/23/18 Unknown Rx Cetirizine HCl [Zyrtec 10mg tab] 10 mg PO DAILY #30 tablet 11/23/18 Unknown Rx Famotidine [Pepcid] 20 mg PO BID #60 tablet 11/23/18 Unknown Rx Lisinopril [Zestril TAB] 5 mg PO QDAY tablet 11/23/18 Unknown Rx Metoprolol Xl [Metoprolol 100 mg PO QDAY #30 tablet 11/23/18 Unknown Rx SUCCINATE ER TAB] Sotalol [Betapace] 80 mg PO Q12HR #30 tablet 11/23/18 Unknown Rx Thiamine [Vitamin B-1] 100 mg PO QDAY #30 tablet 11/23/18 Unknown Rx Exam - Constitutional Vitals: Temp Pulse Resp BP Pulse Ox 98.0 F 66 18 162/88 97 12/09/18 19:37 12/09/18 19:37 12/09/18 19:37 12/09/18 19:37 12/09/18 19:37 General appearance: Present: no acute distress, well-nourished - EENT Eyes: Present: PERRL ENT: hearing intact, clear oral mucosa - Neck Neck: Present: supple, normal ROM - Respiratory Respiratory effort: normal Respiratory: bilateral: CTA - Cardiovascular Heart rate: 68 Rhythm: regular Heart Sounds: Present: S1 & S2. Absent: rub, click - Extremities Extremities: no ischemia, pulses intact, pulses symmetrical, No edema Peripheral Pulses: within normal limits - Abdominal General gastrointestinal: Present: soft, non-tender, non-distended, normal bowel sounds Male genitourinary: Present: normal - Rectal Rectal Exam: deferred - Integumentary Integumentary: Present: clear, warm, dry - Musculoskeletal Musculoskeletal: gait normal, strength equal bilaterally - Psychiatric Psychiatric: appropriate mood/affect, intact judgment & insight - Neurologic Neurologic: CNII-XII intact, moves all extremities - Allied Health Allied health notes reviewed: nursing, case management Results - Labs CBC & Chem 7: 12/10/18 06:19 12/09/18 14:23 Labs: Laboratory Last Values WBC 7.6 K/mm3 (4.5-11.0) 12/09/18 14:23 RBC 4.75 M/mm3 (3.65-5.03) 12/09/18 14:23 Hgb 12.4 gm/dl (11.8-15.2) 12/09/18 14:23 Hct 38.2 % (35.5-45.6) 12/09/18 14:23 MCV 81 fl (84-94) L 12/09/18 14:23 MCH 26 pg (28-32) L 12/09/18 14:23 MCHC 32 % (32-34) 12/09/18 14:23 RDW 17.8 % (13.2-15.2) H 12/09/18 14:23 Plt Count 181 K/mm3 (140-440) 12/09/18 14:23 Lymph % (Auto) 12.5 % (13.4-35.0) L 12/09/18 14:23 [place] % (Auto) 7.2 % (0.0-7.3) 12/09/18 14:23 Eos % (Auto) 1.1 % (0.0-4.3) 12/09/18 14:23 Baso % (Auto) 0.8 % (0.0-1.8) 12/09/18 14:23 Lymph # 1.0 K/mm3 (1.2-5.4) L 12/09/18 14:23 [place] # 0.6 K/mm3 (0.0-0.8) 12/09/18 14:23 Eos # 0.1 K/mm3 (0.0-0.4) 12/09/18 14:23 Baso # 0.1 K/mm3 (0.0-0.1) 12/09/18 14:23 Seg Neutrophils % 78.4 % (40.0-70.0) H 12/09/18 14:23 Seg Neutrophils # 6.0 K/mm3 (1.8-7.7) 12/09/18 14:23 Sodium 142 mmol/L (137-145) 12/09/18 14:23 Potassium 4.3 mmol/L (3.6-5.0) 12/09/18 14:23 Chloride 106.0 mmol/L (98-107) 12/09/18 14:23 Carbon Dioxide 27 mmol/L (22-30) 12/09/18 14:23 13 mmol/L 12/09/18 14:23 BUN 14 mg/dL (9-20) 12/09/18 14:23 1.1 mg/dL (0.8-1.5) 12/09/18 14:23 Estimated GFR > 60 ml/min 12/09/18 14:23 13 % 12/09/18 14:23 Glucose 110 mg/dL (75-100) H 12/09/18 14:23 Calcium 9.3 mg/dL (8.4-10.2) 12/09/18 14:23 Phosphorus 2.70 mg/dL (2.5-4.5) 12/09/18 14:23 Magnesium 1.90 mg/dL (1.7-2.3) 12/09/18 14:23 < 0.010 ng/mL (0.00-0.029) 12/09/18 14:23 NT-Pro-B Natriuret Pep 758.0 pg/mL (0-900) 12/09/18 14:23 Yellow (Yellow) 12/09/18 15:12 Clear (Clear) 12/09/18 15:12 5.0 (5.0-7.0) 12/09/18 15:12 Ur Specific [place] 1.020 (1.003-1.030) 12/09/18 15:12 30 mg/dl mg/dL (Negative) 12/09/18 15:12 Neg mg/dL (Negative) 12/09/18 15:12 Neg mg/dL (Negative) 12/09/18 15:12 Neg (Negative) 12/09/18 15:12 Neg (Negative) 12/09/18 15:12 Neg (Negative) 12/09/18 15:12 2.0 mg/dL (<2.0) 12/09/18 15:12 Ur Leukocyte Esterase Neg (Negative) 12/09/18 15:12 1.0 /HPF (0.0-6.0) 12/09/18 15:12 2.0 /HPF (0.0-6.0) 12/09/18 15:12 U Epithel Cells (Auto) < 1.0 /HPF (0-13.0) 12/09/18 15:12 2+ /HPF (Negative) 12/09/18 15:12 Few /HPF 12/09/18 15:12 Few /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) 12/09/18 15:12 Presumptive negative 12/09/18 15:12 Presumptive negative 12/09/18 15:12 Ur Barbiturates Screen Presumptive negative 12/09/18 15:12 Ur Phencyclidine Scrn Presumptive negative 12/09/18 15:12 Ur Amphetamines Screen Presumptive negative 12/09/18 15:12 U Benzodiazepines Scrn Presumptive negative 12/09/18 15:12 Presumptive negative 12/09/18 15:12 U Marijuana (THC) Screen Presumptive negative 12/09/18 15:12 Disclamer 12/09/18 15:12 - Imaging and Cardiology EKG: report reviewed (NSR) Chest x-ray: report reviewed (NAF) Assessment and Plan Advance Directives: Yes (Full code) VTE prophylaxis?: Chemical Plan of care discussed with patient/family: Yes - Patient Problems (1) Chest pain Current Visit: Yes Status: Acute Qualifiers: Chest pain type: unspecified Qualified Code(s): R07.9 - Chest pain, unspecified Plan to address problem: Patienthad stress test recently Serial troponins Will defer to cardiology reg stress test (2) Congestive heart failure Current Visit: No Status: Chronic Qualifiers: Heart failure type: combined systolic and diastolic Heart failure chronicity: acute on chronic Qualified Code(s): I50.43 - Acute on chronic combined systolic (congestive) and diastolic (congestive) heart failure Plan to address problem: Cont entresto (3) HTN (hypertension) Current Visit: No Status: Chronic Qualifiers: Hypertension type: essential hypertension Qualified Code(s): I10 - Essential (primary) hypertension Plan to address problem: Cont Antihypertensives (4) PAF (paroxysmal atrial fibrillation) Current Visit: No Status: Chronic Plan to address problem: Cont Eliquis (5) HLD (hyperlipidemia) Current Visit: Yes Status: Chronic Qualifiers: Hyperlipidemia type: mixed hyperlipidemia Qualified Code(s): E78.2 - Mixed hyperlipidemia Plan to address problem: Cont Statins (6) DVT prophylaxis Current Visit: No Status: Acute Plan to address problem: On Lovenox
[2018-12-09] MEDS ORDERED: SODIUM CHLORIDE FLUSH SYRINGE 10 ML IV PRN (22:43)
[2018-12-09] MEDS ORDERED: DILAUDID IV PRN (22:43)
[2018-12-09] MEDS ORDERED: ZOFRAN IV PRN (22:43)
[2018-12-09] MEDS ORDERED: TYLENOL PO PRN (22:43)
[2018-12-09] MEDS: ELIQUIS PO SCH (23:48)
[2018-12-09] MEDS: TAPAZOLE PO SCH (23:59)
[2018-12-10] MEDS: TAPAZOLE PO SCH ×3 (00:04→22:16)
[2018-12-10] MEDS: BETAPACE PO SCH ×3 (04:11→22:17)
[2018-12-10 06:51] LABS: Basophils % (Auto) 0.6 % (0.0-1.8); Eosinophils # (Auto) 0.1 K/mm3 (0.0-0.4); Eosinophils % (Auto) 1.8 % (0.0-4.3); Hematocrit 37.2 % (35.5-45.6); Hemoglobin 12.1 gm/dl (11.8-15.2); Lymphocytes # (Auto) 1.2 K/mm3 (1.2-5.4); Mean Corpuscular HGB Conc 33 % (32-34); Mean Corpuscular Volume 81 fl (84-94); Monocytes # (Auto) 0.5 K/mm3 (0.0-0.8); Monocytes % (Auto) 8.3 % (0.0-7.3); Platelet Count 164 K/mm3 (140-440); Red Blood Count 4.59 M/mm3 (3.65-5.03); Red Cell Distribution Width 17.6 % (13.2-15.2)
[2018-12-10 07:17] LABS: Alanine Aminotransferase 10 units/L (7-56); Albumin 3.9 g/dL (3.9-5); BUN/Creatinine Ratio 13; Blood Urea Nitrogen 14 mg/dL (9-20); Calcium 9.2 mg/dL (8.4-10.2); Hemolysis Index 1
[2018-12-10] MEDS ORDERED: PEPCID IV SCH (10:00)
[2018-12-10] MEDS ORDERED: CLARITIN PO SCH (10:00)
[2018-12-10] MEDS: ZESTRIL PO SCH (10:47)
[2018-12-10] MEDS: ELIQUIS PO SCH ×2 (10:47→22:14)
[2018-12-10] MEDS: BABY ASPIRIN PO SCH (10:47)
[2018-12-10] MEDS: VITAMIN B-1 PO SCH (10:47)
[2018-12-10] MEDS: PEPCID PO SCH ×3 (10:47→22:14)
[2018-12-10] MEDS: TOPROL XL PO SCH (10:48)
--- NOTE | 2018-12-10 13:20 | Consultation ---
History of Present Illness Consult date: 12/10/18 Consult reason: other (AICD discharge) History of present illness: Patient is a 63-year old with a history of coronary artery disease, ischemic c ardiomyopathy and a single chamber ICD implant ([employer]). His latest cardiac workup was a stress thallium test done 4 months ago, that reports no ischemia. He also has paroxysmal atrial fibrillation and is on sotalol 80mg twice daily, metoprolol in addition to eliquis for oral anticoagulation. Co-morbidities includes hyperthyroidism, prompting the discontinuation of amiodarone, and hypertension. The patient returns to the hospital with AICD discharge. Patient reports dizziness just prior to AICD discharge. Interrogation revealed several episodes of rapid atrial fibrillation. The patient was appropriately shocked for VT. Cardiology consultation has been requested. Medications and Allergies Allergies Allergy/AdvReac Type Severity Reaction Status Date / Time No Known Allergies Allergy Verified 11/22/18 13:38 Home Medications Medication Instructions Recorded Confirmed Last Taken Type Aspirin 81 mg PO QDAY 03/26/18 11/23/18 11/22/18 History 81mg Oxymetazoline 0.05% [Vicks Sinex] 1 spray INTRANASAL BID PRN 07/15/18 11/23/18 11/22/18 History Sacubitril/Valsartan [Entresto 24 24 - 26 tab PO DAILY 07/15/18 11/23/18 11/22/18 History mg-26 mg (Nf)] methIMAzole [Methimazole] 10 mg PO BID 07/15/18 11/23/18 11/22/18 History 10mg Apixaban [Eliquis] 5 mg PO Q12HR tablet 11/23/18 Unknown Rx Apixaban [Eliquis] 5 mg PO Q12HR #60 tablet 11/23/18 Unknown Rx AtorvaSTATin [Lipitor] 40 mg PO QHS tablet 11/23/18 Unknown Rx AtorvaSTATin [Lipitor] 40 mg PO QHS #30 tablet 11/23/18 Unknown Rx Cetirizine HCl [Zyrtec 10mg tab] 10 mg PO DAILY #30 tablet 11/23/18 Unknown Rx Famotidine [Pepcid] 20 mg PO BID #60 tablet 11/23/18 Unknown Rx Lisinopril [Zestril TAB] 5 mg PO QDAY tablet 11/23/18 Unknown Rx Metoprolol Xl [Metoprolol 100 mg PO QDAY #30 tablet 11/23/18 Unknown Rx SUCCINATE ER TAB] Sotalol [Betapace] 80 mg PO Q12HR #30 tablet 11/23/18 Unknown Rx Thiamine [Vitamin B-1] 100 mg PO QDAY #30 tablet 11/23/18 Unknown Rx Active Meds: Active Medications Acetaminophen (Tylenol) 650 mg PO Q4H PRN PRN Reason: Pain MILD(1-3)/Fever >100.5/ARCHULETA Apixaban (Eliquis) 5 mg PO Q12HR [facility]; Protocol Last Admin: 12/10/18 10:47 Dose: 5 mg Documented by: Aspirin (Baby Aspirin) 81 mg PO QDAY [facility] Last Admin: 12/10/18 10:47 Dose: 81 mg Documented by: Atorvastatin Calcium (Lipitor) 40 mg PO QHS [facility] Famotidine (Pepcid) 20 mg PO BID [facility] Last Admin: 12/10/18 10:47 Dose: 20 mg Documented by: Hydromorphone HCl (Dilaudid) 0.5 mg IV Q3H PRN PRN Reason: Pain , Severe (7-10) Lisinopril (Zestril) 5 mg PO QDAY [facility] Last Admin: 12/10/18 10:47 Dose: 5 mg Documented by: Loratadine (Claritin) 10 mg PO DAILY [facility] Last Admin: 12/10/18 10:50 Dose: Not Given Documented by: Methimazole (Tapazole) 10 mg PO BID [facility] Last Admin: 12/10/18 10:50 Dose: Not Given Documented by: Metoprolol Succinate (Toprol Xl) 100 mg PO QDAY [facility] Last Admin: 12/10/18 10:48 Dose: 100 mg Documented by: Ondansetron HCl (Zofran) 4 mg IV Q8H PRN PRN Reason: Nausea And Vomiting Oxymetazoline HCl (Vicks Sinex) 1 spray NS BID PRN PRN Reason: Allergy Symptoms Sodium Chloride (Sodium Chloride Flush Syringe 10 Ml) 10 ml IV BID [facility] Sodium Chloride (Sodium Chloride Flush Syringe 10 Ml) 10 ml IV PRN PRN PRN Reason: LINE FLUSH Sotalol HCl (Betapace) 120 mg PO Q12HR [facility] Thiamine HCl (Vitamin B-1) 100 mg PO QDAY [facility] Last Admin: 12/10/18 10:47 Dose: 100 mg Documented by: Physical Examination Vital Signs Resp Pulse Ox 10 L 98 12/09/18 13:47 12/09/18 13:47 General appearance: no acute distress HEENT: Positive: PERRL Neck: Positive: trachea midline Cardiac: Positive: Reg Rate and Rhythm Lungs: Positive: Decreased Breath Sounds Neuro: Positive: Grossly Intact Extremities: Absent: edema Results 12/10/18 06:19 12/10/18 06:19 Cardiac Enzymes 12/10/18 Range/Units 06:19 AST 9 (5-40) units/L CBC 12/09/18 12/10/18 Range/Units 14:23 06:19 WBC 7.6 6.3 (4.5-11.0) K/mm3 RBC 4.75 4.59 (3.65-5.03) M/mm3 Hgb 12.4 12.1 (11.8-15.2) gm/dl Hct 38.2 37.2 (35.5-45.6) % Plt Count 181 164 (140-440) K/mm3 Lymph # 1.0 L 1.2 (1.2-5.4) K/mm3 [place] # 0.6 0.5 (0.0-0.8) K/mm3 Eos # 0.1 0.1 (0.0-0.4) K/mm3 Baso # 0.1 0.0 (0.0-0.1) K/mm3 Comprehensive Metabolic Panel 12/09/18 12/10/18 Range/Units 14:23 06:19 Sodium 142 143 (137-145) mmol/L Potassium 4.3 3.9 (3.6-5.0) mmol/L Chloride 106.0 106.8 (98-107) mmol/L Carbon Dioxide 27 27 (22-30) mmol/L BUN 14 14 (9-20) mg/dL Creatinine 1.1 1.1 (0.8-1.5) mg/dL Glucose 110 H 113 H (75-100) mg/dL Calcium 9.3 9.2 (8.4-10.2) mg/dL AST 9 (5-40) units/L ALT 10 (7-56) units/L Alkaline Phosphatase 59 (35-129) units/L Total Protein 6.1 L (6.3-8.2) g/dL Albumin 3.9 (3.9-5) g/dL Assessment and Plan Paroxysmal atrial fibrillation on oral anticoagulation with Eliquis as an outpatient. patient recently off amiodarone due to hyperthyroidism; on sotalol and metopr olol Hx of dilated ischemic cardiomyopathy on entresto as an outpatient Cardiac defibrillator in situ ([employer]) Hx Hyperthyroidism Hx of CAD [facility] 04/2016: patent paroximal LAD stent, EF 25-30%. no ischemia by MPI 07/2018.
--- NOTE | 2018-12-10 16:22 | Progress Note ---
Assessment and Plan Assessment and plan: Chest pain Patient had stress test recently Serial troponins Patient was admitted with ICD discharge, interrogation today reported appropriate discharge for sustained ventricular tachycardia. Cardiology increased sotalol to 120mg Congestive heart failure Cont entresto HTN (hypertension) Cont Antihypertensives PAF (paroxysmal atrial fibrillation) Cont Eliquis HLD (hyperlipidemia) Cont Statins DVT prophylaxis On Lovenox History Interval history: No new issues overnight Hospitalist Physical - Constitutional Vitals: Temp Pulse Resp BP Pulse Ox 99.0 F 56 L 20 170/98 97 12/10/18 12:18 12/10/18 12:18 12/10/18 12:18 12/10/18 12:18 12/10/18 12:18 General appearance: Present: no acute distress - EENT Eyes: Present: PERRL, EOM intact ENT: hearing intact, clear oral mucosa, dentition normal - Neck Neck: Present: supple, normal ROM - Respiratory Respiratory effort: normal Respiratory: bilateral: CTA - Cardiovascular Rhythm: regular Heart Sounds: Present: S1 & S2. Absent: gallop, rub - Extremities Extremities: no ischemia, No edema, Full ROM - Abdominal General gastrointestinal: soft, non-tender, non-distended, normal bowel sounds - Integumentary Integumentary: Present: clear, warm, dry - Neurologic Neurologic: CNII-XII intact, moves all extremities Results - Labs CBC & Chem 7: 12/10/18 06:19 12/10/18 06:19 Labs: Laboratory Last Values WBC 6.3 K/mm3 (4.5-11.0) 12/10/18 06:19 RBC 4.59 M/mm3 (3.65-5.03) 12/10/18 06:19 Hgb 12.1 gm/dl (11.8-15.2) 12/10/18 06:19 Hct 37.2 % (35.5-45.6) 12/10/18 06:19 MCV 81 fl (84-94) L 12/10/18 06:19 MCH 26 pg (28-32) L 12/10/18 06:19 MCHC 33 % (32-34) 12/10/18 06:19 RDW 17.6 % (13.2-15.2) H 12/10/18 06:19 Plt Count 164 K/mm3 (140-440) 12/10/18 06:19 Lymph % (Auto) 19.0 % (13.4-35.0) 12/10/18 06:19 [place] % (Auto) 8.3 % (0.0-7.3) H 12/10/18 06:19 Eos % (Auto) 1.8 % (0.0-4.3) 12/10/18 06:19 Baso % (Auto) 0.6 % (0.0-1.8) 12/10/18 06:19 Lymph # 1.2 K/mm3 (1.2-5.4) 12/10/18 06:19 [place] # 0.5 K/mm3 (0.0-0.8) 12/10/18 06:19 Eos # 0.1 K/mm3 (0.0-0.4) 12/10/18 06:19 Baso # 0.0 K/mm3 (0.0-0.1) 12/10/18 06:19 Seg Neutrophils % 70.3 % (40.0-70.0) H 12/10/18 06:19 Seg Neutrophils # 4.4 K/mm3 (1.8-7.7) 12/10/18 06:19 Sodium 143 mmol/L (137-145) 12/10/18 06:19 Potassium 3.9 mmol/L (3.6-5.0) 12/10/18 06:19 Chloride 106.8 mmol/L (98-107) 12/10/18 06:19 Carbon Dioxide 27 mmol/L (22-30) 12/10/18 06:19 13 mmol/L 12/10/18 06:19 BUN 14 mg/dL (9-20) 12/10/18 06:19 1.1 mg/dL (0.8-1.5) 12/10/18 06:19 Estimated GFR > 60 ml/min 12/10/18 06:19 13 % 12/10/18 06:19 Glucose 113 mg/dL (75-100) H 12/10/18 06:19 5.9 % (4-6) 12/09/18 14:23 Calcium 9.2 mg/dL (8.4-10.2) 12/10/18 06:19 Phosphorus 2.70 mg/dL (2.5-4.5) 12/09/18 14:23 Magnesium 1.90 mg/dL (1.7-2.3) 12/09/18 14:23 0.50 mg/dL (0.1-1.2) 12/10/18 06:19 AST 9 units/L (5-40) 12/10/18 06:19 ALT 10 units/L (7-56) 12/10/18 06:19 59 units/L (35-129) 12/10/18 06:19 < 0.010 ng/mL (0.00-0.029) 12/10/18 13:19 NT-Pro-B Natriuret Pep 758.0 pg/mL (0-900) 12/09/18 14:23 6.1 g/dL (6.3-8.2) L 12/10/18 06:19 3.9 g/dL (3.9-5) 12/10/18 06:19 1.8 % 12/10/18 06:19 Yellow (Yellow) 12/09/18 15:12 Clear (Clear) 12/09/18 15:12 5.0 (5.0-7.0) 12/09/18 15:12 Ur Specific [place] 1.020 (1.003-1.030) 12/09/18 15:12 30 mg/dl mg/dL (Negative) 12/09/18 15:12 Neg mg/dL (Negative) 12/09/18 15:12 Neg mg/dL (Negative) 12/09/18 15:12 Neg (Negative) 12/09/18 15:12 Neg (Negative) 12/09/18 15:12 Neg (Negative) 12/09/18 15:12 2.0 mg/dL (<2.0) 12/09/18 15:12 Ur Leukocyte Esterase Neg (Negative) 12/09/18 15:12 1.0 /HPF (0.0-6.0) 12/09/18 15:12 2.0 /HPF (0.0-6.0) 12/09/18 15:12 U Epithel Cells (Auto) < 1.0 /HPF (0-13.0) 12/09/18 15:12 2+ /HPF (Negative) 12/09/18 15:12 Few /HPF 12/09/18 15:12 Few /HPF (MARINE STEWARD) 12/09/18 15:12 Presumptive negative 12/09/18 15:12 Presumptive negative 12/09/18 15:12 Ur Barbiturates Screen Presumptive negative 12/09/18 15:12 Ur Phencyclidine Scrn Presumptive negative 12/09/18 15:12 Ur Amphetamines Screen Presumptive negative 12/09/18 15:12 U Benzodiazepines Scrn Presumptive negative 12/09/18 15:12 Presumptive negative 12/09/18 15:12 U Marijuana (THC) Screen Presumptive negative 12/09/18 15:12 Disclamer 12/09/18 15:12 Active Medications - Current Medications Current Medications: Generic Name Dose Route Start Last Admin Trade Name Freq PRN Reason Stop Dose Admin Acetaminophen 650 mg 12/09/18 22:43 Tylenol PO Q4H PRN Pain MILD(1-3)/Fever >100.5/ARCHULETA Apixaban 5 mg 12/09/18 23:00 12/10/18 10:47 Eliquis PO 5 mg Q12HR NARGIS Administration Protocol Aspirin 81 mg 12/10/18 10:00 12/10/18 10:47 Baby Aspirin PO 81 mg QDAY NARGIS Administration Atorvastatin Calcium 40 mg 12/10/18 22:00 Lipitor PO QHS NARGIS Famotidine 20 mg 12/09/18 23:00 12/10/18 10:47 Pepcid PO 20 mg BID NARGIS Administration Hydromorphone HCl 0.5 mg 12/09/18 22:43 Dilaudid IV Q3H PRN Pain , Severe (7-10) Lisinopril 5 mg 12/10/18 10:00 12/10/18 10:47 Zestril PO 5 mg QDAY NARGIS Administration Loratadine 10 mg 12/10/18 10:00 12/10/18 10:50 Claritin PO Not Given DAILY NARGIS Methimazole 10 mg 12/09/18 22:45 12/10/18 10:50 Tapazole PO Not Given BID NARGIS Metoprolol Succinate 100 mg 12/10/18 10:00 12/10/18 10:48 Toprol Xl PO 100 mg QDAY NARGIS Administration Ondansetron HCl 4 mg 12/09/18 22:43 Zofran IV Q8H PRN Nausea And Vomiting Oxymetazoline HCl 1 spray 12/09/18 22:39 Vicks Sinex NS BID PRN Allergy Symptoms Sodium Chloride 10 ml 12/10/18 10:00 Sodium Chloride Flush Syringe 10 Ml IV BID NARGIS Sodium Chloride 10 ml 12/09/18 22:43 Sodium Chloride Flush Syringe 10 Ml IV PRN PRN LINE FLUSH Sotalol HCl 120 mg 12/10/18 22:00 Betapace PO Q12HR [facility] Thiamine HCl 100 mg 12/10/18 10:00 12/10/18 10:47 Vitamin B-1 PO 100 mg QDAY NARGIS Administration
[2018-12-10] MEDS: SODIUM CHLORIDE FLUSH SYRINGE 10 ML IV SCH ×2 (20:18→22:20)
[2018-12-11 08:37] VITALS: BP 160/100
--- NOTE | 2018-12-11 10:12 | Discharge Summary ---
Providers - Providers Date of Admission: 12/10/18 09:57 Date of discharge: 12/11/18 Attending physician: YUNIOR HAIRSTON 12/09/18 14:56 Consult to Physician [CONS] Urgent Comment: Consulting Provider: SOURAV CARROLL Physician Instructions: Reason For Exam: chest pain defibrallator fired [facility] Condition: Stable Disposition: DC-01 TO HOME OR SELFCARE Time spent for discharge: 32 min Core Measure Documentation - Palliative Care Palliative Care/ Comfort Measures: Not Applicable - Core Measures Any of the following diagnoses?: none Exam - Constitutional Vitals: Temp Pulse Resp BP Pulse Ox 98.2 F 58 L 20 160/100 99 12/11/18 08:36 12/11/18 08:36 12/11/18 08:36 12/11/18 08:36 12/11/18 08:36 General appearance: Present: no acute distress, well-nourished - EENT Eyes: Present: PERRL, EOM intact - Neck Neck: Present: supple, normal ROM - Respiratory Respiratory effort: normal Respiratory: bilateral: diminished, negative: rales, rhonchi, wheezing - Cardiovascular Rhythm: regular Heart Sounds: Present: S1 & S2 - Extremities Extremities: no ischemia, pulses intact - Abdominal General gastrointestinal: Present: soft, non-tender, non-distended, normal bowel sounds - Integumentary Integumentary: Present: clear, warm - Musculoskeletal Musculoskeletal: strength equal bilaterally - Psychiatric Psychiatric: appropriate mood/affect, cooperative - Neurologic Neurologic: CNII-XII intact, moves all extremities Plan Activity: no restrictions Diet: other (cardiac diet) Additional Instructions: If you have chest pain or shortness of breath ,contact MD or go to ER Follow up with: SHERRIE GUPTAGARLAND MD MAGDALENA [Primary Care Provider] - 7 Days COREY GRIJALVA MD [Staff Physician] - 12/18/18 9:10 am Prescriptions: Sotalol HCl [Sotalol] 120 mg PO BID #60 tablet
--- NOTE | 2018-12-11 10:38 | Progress Note ---
Assessment and Plan ICD discharge interrogation reported appropriate discharge for sustained ventricular tachycardia. Paroxysmal atrial fibrillation on oral anticoagulation with Eliquis as an outpatient. patient recently off amiodarone due to hyperthyroidism; on sotalol and metoprolol Hx of dilated ischemic cardiomyopathy on entresto as an outpatient Cardiac defibrillator in situ ([place]) Hx Hyperthyroidism Hx of CAD [facility] 04/2016: patent paroximal LAD stent, EF 25-30%. no ischemia by MPI 07/2018. Plan: Sotalol has been increased to 120 mg twice a day. Stable for discharge home today. Patient will f/u with Dr Moreira on Dec 18 at 910 am. Subjective Date of service: 12/11/18 Interval history: Patient has no complaints. No events on telemetry monitoring overnight. Objective Vital Signs Temp Pulse Resp BP Pulse Ox 12/11/18 08:36 98.2 F 58 L 20 160/100 99 12/11/18 04:02 98.5 F 55 L 18 146/76 96 12/10/18 23:38 98.7 F 56 L 16 140/79 99 12/10/18 22:17 62 162/84 12/10/18 22:00 54 L 20 12/10/18 19:54 99.1 F 56 L 16 162/84 97 12/10/18 16:58 99.5 F 57 L 20 140/78 99 12/10/18 12:29 98.6 F 18 12/10/18 12:26 98.6 F 91 H 18 113/72 98 12/10/18 12:18 99.0 F 56 L 20 170/98 97 12/10/18 10:48 61 141/82 12/10/18 10:46 141/82 - Physical Examination General: No Apparent Distress HEENT: Positive: PERRL Neck: Positive: trachea midline Cardiac: Positive: Reg Rate and Rhythm Lungs: Positive: Decreased Breath Sounds Neuro: Positive: Grossly Intact Extremities: Absent: edema
[2018-12-11] MEDS: VITAMIN B-1 PO SCH (10:55)
[2018-12-11] MEDS: BABY ASPIRIN PO SCH (10:55)
[2018-12-11] MEDS: TOPROL XL PO SCH (10:55)
[2018-12-11] MEDS: ELIQUIS PO SCH (10:55)
[2018-12-11] MEDS: PEPCID PO SCH (10:56)
[2018-12-11] MEDS: ZESTRIL PO SCH (10:56)
[2018-12-11] MEDS: BETAPACE PO SCH (10:58)
== END 2018-12-11 11:30 | disposition home or self-care (01) | DRG 308 ==
LOC: ED 13:34 → 4A 15:04 → OBSVTOIN 12-10 09:57
PROVIDERS: ADMIT Internal Medicine; ATTEND Internal Medicine
PROC: 4B02XTZ Measurement of Cardiac Defibrillator, External Approach (ICD-10-PCS; principal; 2018-12-10)
DX: I47.2 Ventricular tachycardia (principal); I50.43 Acute on chronic combined systolic (congestive) and diastolic (congestive) heart failure; E78.00 Pure hypercholesterolemia, unspecified; I25.2 Old myocardial infarction; I11.0 Hypertensive heart disease with heart failure; M10.9 Gout, unspecified; I48.0 Paroxysmal atrial fibrillation; E78.2 Mixed hyperlipidemia; I25.5 Ischemic cardiomyopathy; Z95.5 Presence of coronary angioplasty implant and graft; Z95.810 Presence of automatic (implantable) cardiac defibrillator; Z79.82 Long term (current) use of aspirin; Z90.49 Acquired absence of other specified parts of digestive tract
CPT/HCPCS: 36415; 71045; 80048; 80053; 80307; 81001; 83036; 83735; 83880; 84100; 84484; 85025; 87116; 93005; 93010; 96360; G0378; A9270-GY